=== PATIENT | female | born 1970 | race Two or more races ===

== ENCOUNTER 2020-07-29 15:34 | Outpatient (REF) | payer OTHER, SELFPAY ==
[2020-07-30 03:12] LABS: CT PCR NOT DETECTED (Not Detect.); NG PCR NOT DETECTED (Not Detect.)
[2020-07-30 08:54] LABS: BV Int Neg Control Negative (Negative); BV Int Pos Control Positive (Positive)
[2020-08-05 10:37] LABS: HPV mRNA E6/E7 rflx Not Detected (Not Detected)
== END 2020-07-29 15:35 | disposition home or self-care (01) ==
LOC: HO.LAB 15:34
PROVIDERS: Visit Provider Obstetrics & Gynecology
DX: Z01.419 Encounter for gynecological examination (general) (routine) without abnormal findings (principal)
CPT/HCPCS: 87480; 87491; 87510; 87591; 87624; 87625; 87660; 88141; 88142

== ENCOUNTER 2020-09-21 15:25 | Outpatient (REF) | payer OTHER, SELFPAY | END 2020-09-21 15:26 | disposition home or self-care (01) | LOC: HO.LAB 15:25 | PROVIDERS: PCP Family Medicine; Visit Provider Obstetrics & Gynecology | DX: N87.0 Mild cervical dysplasia (principal) | CPT/HCPCS: 57454; 88305 ==

== ENCOUNTER → 2020-10-05 12:05 | Outpatient (BNVA) | payer OTHER, SELFPAY | PROVIDERS: PCP Family Medicine; Visit Provider Obstetrics & Gynecology ==

== ENCOUNTER 2020-11-13 07:23 | Outpatient (REF) | payer OTHER, SELFPAY ==
[2020-11-13 08:57] LABS: MANUAL DIFF FLAG NO
[2020-11-13 09:05] LABS: Basophils Absolute Auto 0.1 X10*3/uL (0.0-0.2); Basophils Percent Auto 0.8 % (0-2); Eosinophils Absolute Auto 0.2 X10*3/uL (0.0-0.4); Eosinophils Percent Auto 2.1 % (0-4); Hematocrit 36.7 % (37-47); Hemoglobin 10.8 g/dl (12.0-16.0); Imm Gran Abs Auto 0.04 X10*3/uL (0.00-0.03); Imm Gran Pct Auto 0.4 % (0.0-0.4); Lymphocytes Absolute Auto 3.7 X10*3/uL (1.2-4.9); Lymphocytes Percent Auto 34.8 % (20-40); Mean Corpuscular HGB Conc 29.4 g/dl (31.0-35.0); Mean Corpuscular Hemoglobin 22.6 pg (27.0-33.0); Mean Corpuscular Volume 76.8 fL (80-98); Mean Platelet Volume 11.8 fL (9.4-12.3); Monocytes Absolute Auto 0.9 X10*3/uL (0.1-1.2); Monocytes Percent Auto 8.5 % (2-11); Neutrophils Absolute Auto 5.7 X10*3/uL (2.0-8.3); Neutrophils Percent Auto 53.4 % (45-73); Platelet Count 385 X10*3/uL (160-400); Red Blood Count 4.78 X10*6/uL (4.20-5.50); Red Cell Distribution Width 17.2 % (11.0-16.0); White Blood Count 10.6 X10*3/uL (4.8-10.8)
[2020-11-13 09:22] LABS: Anion Gap 14 (12-20); Blood Urea Nitrogen 20 mg/dL (9-16); Calcium 9.5 mg/dL (8.4-10.2); Carbon Dioxide 29 mmol/L (22-29); Chloride 102 mmol/L (96-108); Cholesterol 172 mg/dL; Estimated Glomerular Filt Rate > 60; Glucose Fasting 221 mg/dL (60-99); HDL Cholesterol 56 mg/dL; LDL Cholesterol Calculated 101 mg/dl; Potassium 4.5 mmol/L (3.3-5.1); Sodium 140 mmol/L (135-145); Triglycerides 79 mg/dL
[2020-11-13 09:29] LABS: Estimated Average Glucose 212 mg/dL
[2020-11-13 09:47] LABS: TSH reflex Free T4 2.66 uIU/mL (0.32-4.0); Vitamin D 25-OH Total 32.1 ng/mL (>30)
== END 2020-11-13 07:24 | disposition home or self-care (01) ==
LOC: HO.LAB 07:23
PROVIDERS: PCP Internal Medicine; Visit Provider Internal Medicine
DX: Z00.00 Encounter for general adult medical examination without abnormal findings (principal)
CPT/HCPCS: 36415; 80048; 80061; 82306; 83036; 84443; 85025

== ENCOUNTER 2021-03-01 16:47 | Outpatient (REF) | payer OTHER, SELFPAY ==
--- NOTE | ~2021-03-01 | XR_ITS ---
EXAMINATION: XR SHOULDER, LEFT CLINICAL INFORMATION: Right shoulder pain. COMPARISON: None TECHNIQUE: AP external rotation, Grashey, scapular Y, and axillary views of the left shoulder. FINDINGS: Glenohumeral and acromioclavicular alignment is anatomic with normal joint space. No abnormal soft tissue calcifications. No displaced fracture or dislocation. XR/XR shoulder LT min 2V IMPRESSION: No acute abnormality.
== END 2021-03-01 16:48 | disposition home or self-care (01) ==
LOC: HO.XRAY 16:47
PROVIDERS: PCP Internal Medicine; Visit Provider Internal Medicine
DX: M25.512 Pain in left shoulder (principal)
CPT/HCPCS: 73030

== ENCOUNTER 2021-06-21 16:09 | Outpatient (REF) | payer OTHER, SELFPAY ==
--- NOTE | ~2021-06-21 | MM_ITS ---
EXAMINATION: MM SCREENING DIGITAL BREAST TOMOSYNTHESIS, BILATERAL CLINICAL INFORMATION: Screening. Asymptomatic. No known family history breast cancer. The lifetime risk of breast cancer based on the Tyrer-Cuzick Model is 8%. COMPARISON: Mammography: 06/07/2019 (new baseline). TECHNIQUE: Digital breast tomosynthesis is performed in both the craniocaudal and mediolateral oblique views along with computer-aided detection (CAD). Synthesized 2D images are generated from the tomosynthesis. FINDINGS: There are scattered areas of fibroglandular density (ACR BI-RADS breast composition Category b). Parenchymal pattern borders on heterogeneously dense. The fibroglandular distribution is similar to prior exam. There is no interval mass or architectural abnormality. Again, there are scattered similar appearing punctate round calcifications in both breasts, more numerous on left. No interval spaces calcifications. The axilla and skin contours are unremarkable. MM/MM tomosynthesis screening BI IMPRESSION: No mammographic evidence of malignancy. ASSESSMENT: BI-RADS 2: Benign RECOMMENDATION: Routine annual mammography screening. This patient's information was entered into a reminder system with a target due date for their next mammogram.
== END 2021-06-21 16:10 | disposition home or self-care (01) ==
LOC: HO.MAMMO 16:09
PROVIDERS: Visit Provider Internal Medicine
DX: Z12.31 Encounter for screening mammogram for malignant neoplasm of breast (principal)
CPT/HCPCS: 77063; 77067

== ENCOUNTER 2021-08-03 14:33 | Outpatient (REF) | payer OTHER, SELFPAY ==
[2021-08-04 09:30] LABS: CT PCR NOT DETECTED (Not Detect.); NG PCR NOT DETECTED (Not Detect.)
[2021-08-04 10:03] LABS: BV Int Neg Control Negative (Negative); BV Int Pos Control Positive (Positive)
[2021-08-09 09:46] LABS: HPV 16 RNA NOT DETECTED (NOT DETECTED); HPV mRNA E6/E7 rflx Detected (Not Detected)
== END 2021-08-03 14:34 | disposition home or self-care (01) ==
LOC: HO.LAB 14:33
PROVIDERS: PCP Internal Medicine; Visit Provider Advanced Practice Midwife
DX: Z01.411 Encounter for gynecological examination (general) (routine) with abnormal findings (principal); Z11.51 Encounter for screening for human papillomavirus (HPV); Z11.3 Encounter for screening for infections with a predominantly sexual mode of transmission; N89.8 Other specified noninflammatory disorders of vagina; R32 Unspecified urinary incontinence
CPT/HCPCS: 87480; 87491; 87510; 87591; 87624; 87625; 87660; 88142

== ENCOUNTER → 2021-10-04 15:57 | Outpatient (BNVA) | payer OTHER, SELFPAY | PROVIDERS: PCP Family Medicine; Referring Provider Internal Medicine; Visit Provider Nurse Practitioner Family | DX: K59.04 Chronic idiopathic constipation (principal); K58.1 Irritable bowel syndrome with constipation; K64.9 Unspecified hemorrhoids | CPT/HCPCS: 99202 ==

== ENCOUNTER → 2021-10-08 10:51 | Outpatient (BNVA) | payer OTHER, SELFPAY | PROVIDERS: PCP Internal Medicine | DX: N39.41 Urge incontinence (principal) | CPT/HCPCS: 51798; 99202 ==

== ENCOUNTER 2021-11-01 14:11 | Outpatient (REF) | payer OTHER, SELFPAY | END 2021-11-01 14:12 | disposition home or self-care (01) | LOC: HO.LAB 14:11 | PROVIDERS: Visit Provider Obstetrics & Gynecology | DX: R87.612 Low grade squamous intraepithelial lesion on cytologic smear of cervix (LGSIL) (principal) | CPT/HCPCS: 57454; 88305 ==

== ENCOUNTER 2021-11-15 14:59 | Outpatient (REF) | payer OTHER, SELFPAY | END 2021-11-15 15:00 | disposition home or self-care (01) | LOC: HO.LAB 14:59 | PROVIDERS: PCP Internal Medicine; Visit Provider Obstetrics & Gynecology | DX: R87.612 Low grade squamous intraepithelial lesion on cytologic smear of cervix (LGSIL) (principal) | CPT/HCPCS: 57454; 88305; 99212 ==

== ENCOUNTER → 2021-11-29 16:17 | Outpatient (BNVA) | payer OTHER, SELFPAY | PROVIDERS: Visit Provider Obstetrics & Gynecology | DX: Z13.89 Encounter for screening for other disorder (principal) ==

== ENCOUNTER 2021-12-01 15:35 | Outpatient (REF) | payer OTHER, SELFPAY ==
[2021-12-01 17:11] LABS: Estimated Average Glucose 183 mg/dL
[2021-12-01 17:21] LABS: Alanine Aminotransferase 12 U/L (0-31); Albumin Level 4.2 g/dL (3.5-5.0); Alkaline Phosphatase 140 U/L (39-117); Aspartate Amino Transferase 11 U/L (5-31); Bilirubin Direct < 0.2 mg/dL (0.0-0.5); Bilirubin Total 0.2 mg/dL (0.0-1.0); Lipase 34 U/L (8-78); Total Protein 7.5 g/dL (6.5-8.0)
[2021-12-01 17:42] LABS: TSH reflex Free T4 4.23 uIU/mL (0.32-4.0)
[2021-12-01 18:18] LABS: Free T4 (Free Thyroxine) 0.97 ng/dL (0.71-1.85)
[2021-12-04 08:42] LABS: Transglutaminase Ab IgG <1.0 U/mL; Transglutaminase IgA <1.0 U/mL
== END 2021-12-01 15:36 | disposition home or self-care (01) ==
LOC: HO.LAB 15:35
PROVIDERS: PCP Internal Medicine; Referring Provider Internal Medicine; Visit Provider Nurse Practitioner Family
DX: Z12.11 Encounter for screening for malignant neoplasm of colon (principal); R10.9 Unspecified abdominal pain; K21.9 Gastro-esophageal reflux disease without esophagitis; K58.1 Irritable bowel syndrome with constipation
CPT/HCPCS: 36415; 80076; 83036; 83690; 84439; 84443; 86364; 99212

== ENCOUNTER → 2022-01-07 14:26 | Outpatient (BNVA) | payer OTHER, SELFPAY | PROVIDERS: PCP Internal Medicine | DX: Z13.89 Encounter for screening for other disorder (principal) ==

== ENCOUNTER → 2022-01-28 14:47 | Outpatient (BNVA) | payer OTHER, SELFPAY | PROVIDERS: PCP Internal Medicine; Visit Provider Nurse Practitioner Family | DX: K21.9 Gastro-esophageal reflux disease without esophagitis (principal); K59.01 Slow transit constipation; R79.89 Other specified abnormal findings of blood chemistry | CPT/HCPCS: 99212 ==

== ENCOUNTER 2022-02-09 14:09 | Outpatient (REF) | payer OTHER, SELFPAY ==
--- NOTE | ~2022-02-09 | XR_ITS ---
EXAMINATION CT ABDOMEN AND PELVIS WITHOUT CONTRAST (STONE PROTOCOL) CLINICAL INFORMATION: Flank pain COMPARISON: None. TECHNIQUE: Multidetector volumetric CT imaging of the abdomen and pelvis was obtained without the use of intravenous contrast. Coronal and sagittal reformats were reviewed. This CT examination was performed using dose optimization techniques as appropriate, variously including the following: *Automated exposure control *Adjustment of mA and/or kV according to patient size (this includes techniques or standardized protocols for targeted exams where dose is matched to indication/reason for exam; i.e. extremities or head) *Use of iterative reconstruction technique DLP: 831 mGy-cm. FINDINGS: HEPATOBILIARY: Liver normal in size, contour and morphology. No suspicious lesions. No intra or extrahepatic biliary dilation. Gallbladder unremarkable. PANCREAS: Unremarkable. SPLEEN: Unremarkable. ADRENAL GLANDS: Unremarkable. KIDNEYS, URETERS AND BLADDER: Kidneys normal in size, axis and morphology. Subcentimeter angiomyolipoma present lateral interpolar cortex of left kidney. No hydronephrosis. Punctate nonobstructive calculus present in the pole of the right kidney. No ureteral calculi. Ureters normal in course and caliber. Bladder grossly unremarkable.. GASTROINTESTINAL TRACT: Scattered left colonic diverticula. No evidence of diverticulitis. Normal appendix. Small sliding-type hiatal hernia. Stomach otherwise unremarkable. Normal small bowel. PELVIC VISCERA: Uterus and ovaries unremarkable. LYMPH NODES: No lymphadenopathy. PERITONEUM/BODY WALL: Unremarkable. VASCULAR STRUCTURES: Aorta is atherosclerotic but normal caliber. OSSEOUS STRUCTURES: No acute or suspicious osseous abnormalities. XR/XR lumbar spine 2-3V IMPRESSION: * No ureteral calculi or hydronephrosis. * Punctate nonobstructive calculus in the upper pole right kidney. * Scattered left colonic diverticula without evidence of diverticulitis.
== END 2022-02-09 14:10 | disposition home or self-care (01) ==
LOC: HO.XRAY 14:09
PROVIDERS: Absent Provider Internal Medicine; PCP Internal Medicine; Visit Provider Emergency Medicine
DX: M54.42 Lumbago with sciatica, left side (principal)
CPT/HCPCS: 72100

== ENCOUNTER 2022-02-10 00:27 | Emergency (ER) | payer OTHER, SELFPAY ==
--- NOTE | ~2022-02-10 | CT_ITS ---
EXAMINATION CT ABDOMEN AND PELVIS WITHOUT CONTRAST (STONE PROTOCOL) CLINICAL INFORMATION: Flank pain COMPARISON: None. TECHNIQUE: Multidetector volumetric CT imaging of the abdomen and pelvis was obtained without the use of intravenous contrast. Coronal and sagittal reformats were reviewed. This CT examination was performed using dose optimization techniques as appropriate, variously including the following: *Automated exposure control *Adjustment of mA and/or kV according to patient size (this includes techniques or standardized protocols for targeted exams where dose is matched to indication/reason for exam; i.e. extremities or head) *Use of iterative reconstruction technique DLP: 831 mGy-cm. FINDINGS: HEPATOBILIARY: Liver normal in size, contour and morphology. No suspicious lesions. No intra or extrahepatic biliary dilation. Gallbladder unremarkable. PANCREAS: Unremarkable. SPLEEN: Unremarkable. ADRENAL GLANDS: Unremarkable. KIDNEYS, URETERS AND BLADDER: Kidneys normal in size, axis and morphology. Subcentimeter angiomyolipoma present lateral interpolar cortex of left kidney. No hydronephrosis. Punctate nonobstructive calculus present in the pole of the right kidney. No ureteral calculi. Ureters normal in course and caliber. Bladder grossly unremarkable.. GASTROINTESTINAL TRACT: Scattered left colonic diverticula. No evidence of diverticulitis. Normal appendix. Small sliding-type hiatal hernia. Stomach otherwise unremarkable. Normal small bowel. PELVIC VISCERA: Uterus and ovaries unremarkable. LYMPH NODES: No lymphadenopathy. PERITONEUM/BODY WALL: Unremarkable. VASCULAR STRUCTURES: Aorta is atherosclerotic but normal caliber. OSSEOUS STRUCTURES: No acute or suspicious osseous abnormalities. CT/CT abdomen pelvis wo con IMPRESSION: * No ureteral calculi or hydronephrosis. * Punctate nonobstructive calculus in the upper pole right kidney. * Scattered left colonic diverticula without evidence of diverticulitis.
[2022-02-10 01:12] VITALS: BP 147/83; PULSE 81; RESP 16; TEMP 36.4; O2SAT 94; BMI 35.3
[2022-02-10 02:09] LABS: Appearance Urine HAZY; Color Urine YELLOW; Glucose Urine UA >=1000 MG/DL (NEG); Leukocyte Esterase Urine NEG (NEG); Nitrite Urine NEG (NEG); PH 5.5 (5.0-8.0); Urine Blood NEG (NEG); Urine Ketones NEG (NEG); Urine Protein NEG (NEG-TRACE)
[2022-02-10 02:27] LABS: RBC Urine 0 /HPF (0); WBC Urine 0 /HPF (0-4)
[2022-02-10 02:28] LABS: Bacteria Urine TRACE /LPF; Mucus Urine 1+ /LPF; Squamous Epithelial Cell Urine 2+ /LPF
[2022-02-10] MEDS: Acetaminophen 325 MG TABLET 975 MG PO (02:30)
[2022-02-10] MEDS: Ketorolac Tromethamine 15 MG/ML VIAL IM (02:31)
--- NOTE | 2022-02-10 03:14 | ED.GENADULT ---
HPI - General Adult General Chief complaint: Back Pain/Injury Stated complaint: Spinal Pain, Medication not Working, Nausea Time Seen by Provider: 02/10/22 01:05 Source: patient and educational sign language interpreter Mode of arrival: ambulatory History of Present Illness HPI narrative: 51-year-old female with history hypertension and diabetes who comes in with left flank pain since Monday that is been worsening, sharp in nature in radiating down to her groin associated with chills as well as nausea and vomiting yesterday. Otherwise she denies any urinary symptoms or abdominal pain or shortness of breath. Related Data Home Medications Medication Instructions Recorded Confirmed albuterol sulfate 90 mcg/actuation 1 - 2 puff inhalation Q4-6H PRN 07/29/20 aerosol inhaler dyspnea blood sugar diagnostic #10 ea 07/29/20 chlorthalidone 25 mg tablet 25 mg PO DAILY 07/29/20 cholecalciferol (vitamin D3) 50 50 mcg PO DAILY 07/29/20 mcg (2,000 unit) tablet codeine 10 mg-guaifenesin 100 mg/5 5 - 10 ml PO Q4-6H PRN cough 07/29/20 mL oral liquid ferrous sulfate 325 mg (65 mg 325 mg PO DAILY 07/29/20 iron) tablet glipizide 5 mg tablet, extended 5 mg PO DAILY 07/29/20 release 24 hr metformin 1,000 mg tablet 1,000 mg PO BID 07/29/20 empagliflozin 25 mg tablet 25 mg PO QAM 08/03/21 (Jardiance) lancets 33 gauge (TRUEplus Lancets) #100 ea 08/03/21 lisinopril 40 mg tablet 40 mg PO DAILY 10/08/21 omeprazole 20 mg capsule,delayed 20 mg PO DAILY 10/08/21 release celecoxib 100 mg capsule 100 mg PO BID 01/07/22 diclofenac sodium 1 % topical gel 2 g topical QID 01/07/22 Previous Rx's Medication Instructions Recorded hydrocortisone 2.5 % topical cream 1 appl OK BID-QID PRN hemorrhoids 10/04/21 with perineal applicator #30 grams (Proctosol HC) sennosides 8.6 mg tablet (Natural 8.6 mg PO BEDTIME constipation #30 10/04/21 Senna Laxative) tabs famotidine 40 mg tablet 40 mg PO BEDTIME #30 tabs 12/01/21 cyclobenzaprine 5 mg tablet 5 mg PO BEDTIME PRN muscle spasm 02/10/22 #3 tabs ketorolac 10 mg tablet 10 mg PO Q6H PRN pain 5 days #20 02/10/22 tabs Allergies Allergy/AdvReac Type Severity Reaction Status Date / Time No Known Allergies Allergy Verified 01/28/22 15:13 [No Known Allergies*] Review of Systems Review of Systems: Pertinent positives and negatives as stated in HPI 10 point review of systems is otherwise negative. PMFSH Past Medical History Source: nursing notes reviewed Medical History Diabetes GERD (gastroesophageal reflux disease) Hemorrhoids HTN (hypertension) Urge incontinence Surgical History History of Hx of colonoscopy Family History Family History Family/Other Breast cancer Maternal Aunt Breast cancer Social History Social History Alcohol intake: never Advance Directives: No Advance Directives Information Provided: Yes Sexual orientation: Straight/Heterosexual Gender identity: Female Physical Exam ED Vital Signs: Vital Signs - 24 hr 02/10/22 01:12 Temperature 97.6 F Pulse Rate 81 Respiratory Rate 16 Blood Pressure 147/83 H Pulse Oximetry 94 Oxygen Delivery Method Room Air BMI result Body Mass Index 35.3 VITAL SIGNS: Reviewed. GENERAL: Well developed, well nourished, in no acute distress. HEAD: Normocephalic/atraumatic EYES: PERRLA, EOMI EARS: Ext canals without abnormality OROPHARYNX: no oral lesions noted, posterior pharynx clear LUNGS: Normal breath sounds. No adventitious sounds or accessory muscle use. SpO2<94> CARDIOVASCULAR: Regular rate and rhythm without noted murmurs ABDOMEN: Soft, non-tender, non-distended with bowel sounds, no CVA tenderness MUSCULOSKELETAL: No tenderness, deformities, or effusions noted on gross inspection. EXTREMITIES: No cyanosis, clubbing or edema. SKIN: Inspection of the skin reveals no rashes NEUROLOGIC: Alert and oriented x 4. Strength and sensation to light touch were grossly intact x 4. Course Course Course Narrative: 51-year-old female with history and clinical presentation most suspicious for muscle spasm/strain based on clinical exam. On review of all investigations there are no acute findings and patient was provided with combination analgesics and reports improvement in her pain. She was informed of all results and will be discharged home in stable condition with presumptive treatment for muscle strain/spasm. Medical Decision Making Lab Data Labs: Lab Results 02/10/22 Range/Units 01:51 Urine Color YELLOW Urine Appearance HAZY Urine pH 5.5 (5.0-8.0) Ur Specific Bryson 1.020 (1.005-1.025) Urine Protein NEG (NEG-TRACE) MG/DL Urine Glucose (UA) >=1000 H (NEG) MG/DL Urine Ketones NEG (NEG) MG/DL Urine Blood NEG (NEG) Urine Nitrite NEG (NEG) Ur Leukocyte Esterase NEG (NEG) Urine RBC 0 (0) /HPF Urine WBC 0 (0-4) /HPF Ur Squamous Epith Cells 2+ /LPF Urine Bacteria TRACE /LPF Urine Mucus 1+ /LPF Discharge Plan Discharge Clinical Impression: Muscle strain, Muscle spasm Patient Disposition: Home, Self-Care Instructions: Muscle Spasm (ED) Additional Instructions: 1. Reanudar todos los medicamentos caseros seg?n lo prescrito. 2. Tylenol 1000 mg, por v?a oral, cada 6 horas seg?n sea necesario para controlar el dolor. No exceda los 4000 mg dentro de las 24 horas. 3. Parche de lidoca?na, aplique en el ?carl de m?xima sensibilidad kodak se indica en el empaque exterior. 4. Realice un seguimiento con davidson proveedor de atenci?n primaria en los pr?ximos 1 a 2 d?as para zaida reevaluaci?n adicional del manejo ambulatorio. Regrese a la bairon de emergencias si los s?ntomas empeoran. Prescriptions: New ketorolac 10 mg tablet 10 mg PO Q6H PRN (Reason: pain) 5 Days Qty: 20 0RF Rx Instructions: Patient received Toradol in the emergency room. Please instruct patient to stop all other NSAID use. cyclobenzaprine 5 mg tablet 5 mg PO BEDTIME PRN (Reason: muscle spasm) Qty: 3 0RF No Action chlorthalidone 25 mg tablet 25 mg PO DAILY glipizide 5 mg tablet extended release 24hr 5 mg PO DAILY metformin 1,000 mg tablet 1,000 mg PO BID (DME) FreeStyle Lite Strips Strip See Rx Instructions Not Applicable BID Qty: 10 Rx Instructions: As directed albuterol sulfate 90 mcg/actuation HFA aerosol inhaler 1 - 2 puff inhalation Q4-6H PRN (Reason: dyspnea) codeine-guaifenesin 10-100 mg/5 mL liquid 5 - 10 ml PO Q4-6H PRN (Reason: cough) cholecalciferol (vitamin D3) 50 mcg (2,000 unit) tablet 50 mcg PO DAILY ferrous sulfate 325 mg (65 mg iron) tablet 325 mg PO DAILY Jardiance 25 mg tablet 25 mg PO QAM (DME) lancets [TRUEplus Lancets] 33 gauge misc See Rx Instructions Not Applicable BID Qty: 100 Rx Instructions: As directed lisinopril 40 mg tablet 40 mg PO DAILY omeprazole 20 mg capsule,delayed release(DR/EC) 20 mg PO DAILY famotidine 40 mg tablet 40 mg PO BEDTIME Qty: 30 3RF sennosides [Natural Senna Laxative] 8.6 mg tablet 8.6 mg PO BEDTIME Qty: 30 3RF hydrocortisone [Proctosol HC] 2.5 % cream with perineal applicator 1 appl OK BID-QID PRN (Reason: hemorrhoids) Qty: 30 0RF diclofenac sodium 1 % gel 2 g topical QID celecoxib 100 mg capsule 100 mg PO BID Print Language: Belgian
--- NOTE | 2022-02-10 03:40 | PC.NURSE ---
Assumed care of pt Pt c/o worsening flank pain since Monday with n/v, worse with movement Denies any fevers but c/o chills at home Pt medicated per NOV NAD Will continue to monitor
[2022-02-10] MEDS: Lidocaine 4 % Patch ADH..PATCH 1 PATCH TRANSDERMA (05:38)
[2022-02-10] MEDS: Cyclobenzaprine HCl 5 MG TABLET PO (05:38)
[2022-02-10 05:47] VITALS: BP 138/68; PULSE 82; O2SAT 100
== END 2022-02-10 05:48 | disposition home or self-care (01) ==
PROVIDERS: Emergency Provider Student in an Organized Health Care Education/Training Program
DX: S39.011A Strain of muscle, fascia and tendon of abdomen, initial encounter (principal); X58.XXXA Exposure to other specified factors, initial encounter; M62.830 Muscle spasm of back; R10.9 Unspecified abdominal pain; I10 Essential (primary) hypertension; E11.9 Type 2 diabetes mellitus without complications; Y93.9 Activity, unspecified; Y92.9 Unspecified place or not applicable; Y99.9 Unspecified external cause status
CPT/HCPCS: 74176; 81001; 96372; 99284; J1885

== ENCOUNTER 2022-02-15 15:00 | Outpatient (RCR) | payer OTHER, SELFPAY | END 2022-02-22 16:07 | disposition home or self-care (01) | LOC: HO.OT 15:00 | PROVIDERS: PCP Internal Medicine; Visit Provider Internal Medicine | DX: G56.21 Lesion of ulnar nerve, right upper limb (principal) | CPT/HCPCS: 97110; 97165 ==

== ENCOUNTER → 2022-06-01 14:06 | Outpatient (BNVA) | payer OTHER, SELFPAY | PROVIDERS: PCP Internal Medicine; Visit Provider Internal Medicine Endocrinology, Diabetes & Metabolism | DX: E03.9 Hypothyroidism, unspecified (principal) | CPT/HCPCS: 99202 ==

== ENCOUNTER 2022-06-07 15:41 | Outpatient (REF) | payer OTHER, SELFPAY ==
[2022-06-07 17:12] LABS: Free T4 (Free Thyroxine) 1.02 ng/dL (0.71-1.85); Thyroid Stimulating Hormone 3.84 uIU/mL (0.32-4.0)
[2022-06-09 13:32] LABS: Thyroid Peroxidase Antibodies 1 IU/mL (<9)
== END 2022-06-07 15:42 | disposition home or self-care (01) ==
LOC: HO.LAB 15:41
PROVIDERS: PCP Internal Medicine; Visit Provider Internal Medicine Endocrinology, Diabetes & Metabolism
DX: E03.9 Hypothyroidism, unspecified (principal)
CPT/HCPCS: 36415; 84439; 84443; 86376

== ENCOUNTER → 2022-08-01 14:30 | Outpatient (BNVA) | payer OTHER, SELFPAY | PROVIDERS: PCP Internal Medicine; Referring Provider Internal Medicine; Visit Provider Nurse Practitioner Family | DX: K59.04 Chronic idiopathic constipation (principal); K58.1 Irritable bowel syndrome with constipation; K21.9 Gastro-esophageal reflux disease without esophagitis | CPT/HCPCS: 99212 ==

== ENCOUNTER → 2022-08-05 14:48 | Outpatient (BNVA) | payer OTHER, SELFPAY | PROVIDERS: PCP Internal Medicine; Visit Provider Urology | DX: N32.81 Overactive bladder (principal); N20.0 Calculus of kidney | CPT/HCPCS: 51798; 99212 ==

== ENCOUNTER 2023-02-01 14:36 | Outpatient (REF) | payer MEDICAID, SELFPAY ==
[2023-02-08 07:58] LABS: HPV 16 RNA NOT DETECTED (NOT DETECTED); HPV mRNA E6/E7 rflx Detected (Not Detected)
== END 2023-02-01 14:37 | disposition home or self-care (01) ==
LOC: HO.LNP 14:36
PROVIDERS: PCP Internal Medicine; Visit Provider Obstetrics & Gynecology
DX: Z01.419 Encounter for gynecological examination (general) (routine) without abnormal findings (principal)
CPT/HCPCS: 87624; 87625; 88142

== ENCOUNTER → 2023-02-06 13:31 | Outpatient (BNVA) | payer MEDICAID, SELFPAY | PROVIDERS: PCP Internal Medicine; Visit Provider Urology | DX: N32.81 Overactive bladder (principal); N20.0 Calculus of kidney | CPT/HCPCS: 51798; 99212 ==

== ENCOUNTER 2023-02-25 10:18 | Outpatient (REF) | payer MEDICAID, SELFPAY | END 2023-02-25 10:19 | disposition home or self-care (01) | LOC: HO.XRAY 10:18 | PROVIDERS: PCP Internal Medicine; Visit Provider Urology | DX: N20.0 Calculus of kidney (principal) | CPT/HCPCS: 74018 ==

== ENCOUNTER 2023-03-02 12:24 | Outpatient (REF) | payer MEDICAID, SELFPAY | END 2023-03-02 12:25 | disposition home or self-care (01) | LOC: HO.LNP 12:24 | PROVIDERS: PCP Internal Medicine; Visit Provider Obstetrics & Gynecology | DX: R87.610 Atypical squamous cells of undetermined significance on cytologic smear of cervix (ASC-US) (principal); R87.810 Cervical high risk human papillomavirus (HPV) DNA test positive | CPT/HCPCS: 57456; 88305 ==

== ENCOUNTER 2023-03-09 14:22 | Outpatient (REF) | payer MEDICAID, SELFPAY ==
--- NOTE | ~2023-03-09 | MM_ITS ---
EXAMINATION: MM SCREENING DIGITAL BREAST TOMOSYNTHESIS, BILATERAL CLINICAL INFORMATION: Screening. Asymptomatic. The lifetime risk of breast cancer based on the Tyrer-Cuzick Model is 8.6%. COMPARISON: Mammography: This study is compared with prior exams dating back to 2019. TECHNIQUE: Digital breast tomosynthesis is performed in both the craniocaudal and mediolateral oblique views along with computer-aided detection (CAD). Synthesized 2D images are generated from the tomosynthesis. FINDINGS: There are scattered areas of fibroglandular density (ACR BI-RADS breast composition Category b). There are no significant masses, abnormal calcifications, or other abnormalities. Scattered benign calcifications are present in each breast. MM/MM tomosynthesis screening BI IMPRESSION: No mammographic evidence of malignancy. ASSESSMENT: BI-RADS BI-RADS 2 - Benign Findings RECOMMENDATION: Routine annual mammography screening. 1 year F/U This examination should not preclude the clinical evaluation of a suspicious palpable abnormality. This patient's information was entered into a reminder system with a target due date for their next mammogram.
== END 2023-03-09 14:23 | disposition home or self-care (01) ==
LOC: HO.MAMMO 14:22
PROVIDERS: PCP Internal Medicine; Visit Provider Obstetrics & Gynecology
DX: Z12.31 Encounter for screening mammogram for malignant neoplasm of breast (principal)
CPT/HCPCS: 77063; 77067

== ENCOUNTER → 2023-03-09 14:30 | Outpatient (BNV) | payer MEDICAID, SELFPAY | PROVIDERS: PCP Internal Medicine; Visit Provider Radiology Diagnostic Radiology | DX: Z12.31 Encounter for screening mammogram for malignant neoplasm of breast (principal) | CPT/HCPCS: 77063; 77067 ==

== ENCOUNTER 2023-03-15 14:04 | Outpatient (AMB) | payer MEDICAID, SELFPAY ==
--- NOTE | 2023-03-15 14:07 | A.OFFVIS_ITS ---
Intake Vital Signs 03/15/23 14:09 Height 5 ft 4 in Weight 213 lb 13.574 oz BMI 36.7 BP 124/76 Intake Visit Reasons: Colpo results/ Ok per yarelis Assistant Teacher Required: Yes Assistant Teacher Language: Sales Representative Health Insurance Name: [employer]era AGUIRRE Information Interpreted: non-clinical & clinical Accompanied by: Self / Same As Patient Allergies No Known Allergies [No Known Allergies*] Allergy (Verified 03/15/23 14:10) Post menopausal: Yes HPI HPI Comments History of Present Illness Details Presenting post colpo for follow-up. The patient is doing well with no complaints. The pathology showed the following: Endocervix, curettage:? Squamous mucosa and rare endocervical glandular epithelial cells; negative for dysplasia.? PFSH Medical History Diabetes GERD (gastroesophageal reflux disease) Hemorrhoids HTN (hypertension) Hypothyroid Urge incontinence Surgical History History of Hx of colonoscopy Family History Family/Other Breast cancer Maternal Aunt Breast cancer Maternal Aunt Thyroid disease Father HTN (hypertension) Mother Hernia Age related osteoporosis Social History Household Members Other:: daughter Housing: Apartment Alcohol intake: former Patient Tobacco Use Status: Former Tobacco user Sexual orientation: Straight/Heterosexual Gender identity: Female Review of Systems Const All systems reviewed & are unremarkable except as noted in HPI and below Reports as per HPI and Reports no additional complaints GI Reports no additional complaints Reports no additional complaints Physical Exam Vital Signs: Last Vital Signs BP 124/76 03/15/23 14:09 BMI result Body Mass Index 36.7 Assessment & Plan Assessment & Plan (1) ASCUS with positive high risk HPV cervical: Code(s): R87.610 - Atypical squamous cells of undetermined significance on cytologic smear of cervix (ASC-US); R87.810 - Cervical high risk human papillomavirus (HPV) DNA test positive Plan: Discussed with the patient the pathology results of the colposcopy biopsies & endocervical curettage ( negative). Discussed with the patient the sensitivity specificity, positive and negative predictive value in detecting cervical cancer in addition discussed the regression, persistence and progression rates. Recommended co-testing in 12 months, if cytology and or HPV are abnormal will proceed was colposcopy biopsy and endocervical curettage, if lesions gets worse or stays persistent for 2 years will proceed with loop electric excision procedure. Instructions given to the patient to schedule a co test appointment in 1 year. All questions answered the patient verbalized understanding. Coding Level of Care Code Est Pt Level 3 (23868) Diagnoses ASCUS with positive high risk HPV cervical R87.610; R87.810
[2023-03-15 14:09] VITALS: BP 124/76; BMI 36.7
== END 2023-03-15 14:17 | disposition home or self-care (01) ==
LOC: HO.HWS 14:05
PROVIDERS: PCP Internal Medicine; Visit Provider Obstetrics & Gynecology
DX: R87.610 Atypical squamous cells of undetermined significance on cytologic smear of cervix (ASC-US) (principal); R87.810 Cervical high risk human papillomavirus (HPV) DNA test positive
CPT/HCPCS: 99213

== ENCOUNTER → 2023-03-15 14:04 | Outpatient (BNVA) | payer MEDICAID, SELFPAY | PROVIDERS: PCP Internal Medicine; Visit Provider Obstetrics & Gynecology | DX: R87.610 Atypical squamous cells of undetermined significance on cytologic smear of cervix (ASC-US) (principal); R87.810 Cervical high risk human papillomavirus (HPV) DNA test positive | CPT/HCPCS: 99212 ==

== ENCOUNTER 2023-04-14 10:54 | Outpatient (AMB) | payer MEDICAID, SELFPAY ==
--- NOTE | 2023-04-14 05:09 | A.OFFVIS_ITS ---
Intake Intake Visit Reasons: 2m/KUB Intake Note: Patient presents today for a follow-up on KUB Results: Meds- None Allergies to Antibiotic- No Known Allergies Blood Thinner- None Admitting Manager Required: Yes Admitting Manager Language: Tongan Information Interpreted: non-clinical & clinical Accompanied by: Self / Same As Patient Allergies No Known Allergies [No Known Allergies*] Allergy (Verified 03/15/23 14:10) HPI HPI Comments History of Present Illness Details 04/14/2023? Adeola is a 52-year-old female who presents today via televisit for follow up, overactive bladder and kidney stones. She was last seen by me on 02/06/2023. She is here today via televisit to discuss KUB results.? The patient is a Tongan speaking female. Certified language interpreter was present during the televisit. She mentions having intermittent weak urinary stream. She also reports sensation of feeling incomplete bladder emptying. She denies any other urinary tract symptoms including hematuria. Results reviewed ? X ray KUB?02/25/2022?no kidney stones noted. Results reviewed ? CT scan of the abdomen/pelvis without contrast?kidneys were normal, no hydronephrosis; punctate right kidney stone. Review of chart: 02/06/2023? Adeola is a 52-year-old female who presents to the office for follow-up,? overactive bladder, kidney stones. The patient is a Tongan speaking female. Certified language interpreter was present during the visit. The patient is being evaluated in the past for OAB and She was last seen on 08/05/23. At which? time she stated she had been evaluated in the ER and had a CAT scan done and she was told that she had a kidney stone. I did review the imaging from February 2022 which noted a punctuate right kidney stone that was nonobstructive. She was doing well off her bladder medication at that time and she stated that her bladder symptoms improved with better control of her diabetes. The patient reports that she is having thyroid issues, in review her chart an endocrine referral was made. Evaluation today: Blood: negative, leukocytes: negative. Bladder scan PVR: 0 mL. Plan: Right kidney stone will monitor. KUB X-ray was ordered. OAB.? Bladder symptoms stable Tele-health follow-up after 2 months.? ? 04/14/23--Plan: Schedule an office visit follow up to FU bladder emptying FU in 10 weeks to check bladder scan and urinalysis. Monitory Kidneys. Right kidney stone PFSH Medical History Diabetes GERD (gastroesophageal reflux disease) Hemorrhoids HTN (hypertension) Hypothyroid Urge incontinence Surgical History History of Hx of colonoscopy Family History Family/Other Breast cancer Maternal Aunt Breast cancer Maternal Aunt Thyroid disease Father HTN (hypertension) Mother Hernia Age related osteoporosis Social History Household Members Other:: daughter Housing: Apartment Alcohol intake: former Patient Tobacco Use Status: Former Tobacco user Sexual orientation: Straight/Heterosexual Gender identity: Female Review of Systems Const All systems reviewed & are unremarkable except as noted in HPI and below Reports no additional complaints Eyes Reports no additional complaints ENT Reports no additional complaints Card Denies dyspnea Resp Denies cough and Denies dyspnea GI Reports no additional complaints Reports no additional complaints Musc Reports no additional complaints Skin/Breast Denies rash and Denies unusual bruising Neuro Reports no additional complaints Psych Reports no additional complaints Endo Reports no additional complaints Dave/Lymph Reports no additional complaints Aller/Immun Reports no additional complaints Results Reviewed Results Reviewed: Date of Service: 02/10/[address] ABDOMEN AND PELVIS WITHOUT CONTRAST (STONE PROTOCOL) CLINICAL INFORMATION: Flank pain? COMPARISON: None. ? FINDINGS: HEPATOBILIARY: Liver normal in size, contour and morphology. No suspicious lesions. No intra or extrahepatic biliary dilation. Gallbladder unremarkable. PANCREAS: Unremarkable. SPLEEN: Unremarkable. ADRENAL GLANDS: Unremarkable. KIDNEYS, URETERS AND BLADDER: Kidneys normal in size, axis and morphology. Subcentimeter angiomyolipoma present lateral interpolar cortex of left kidney. No hydronephrosis. Punctate nonobstructive calculus present in the pole of the right kidney. No ureteral calculi. Ureters normal in course and caliber. Bladder grossly unremarkable.. GASTROINTESTINAL TRACT: Scattered left colonic diverticula. No evidence of diverticulitis. Normal appendix. Small sliding-type hiatal hernia. Stomach otherwise unremarkable. Normal small bowel.? PELVIC VISCERA: Uterus and ovaries unremarkable. LYMPH NODES: No lymphadenopathy. PERITONEUM/BODY WALL: Unremarkable. VASCULAR STRUCTURES: Aorta is atherosclerotic but normal caliber. OSSEOUS STRUCTURES: No acute or suspicious osseous abnormalities. ? IMPRESSION: *? No ureteral calculi or hydronephrosis. *? Punctate nonobstructive calculus in the upper pole right kidney. *? Scattered left colonic diverticula without evidence of diverticulitis.? Date of Service: 02/25/23 EXAMINATION: XR ABDOMEN KUB CLINICAL INDICATION: Kidney stone? COMPARISON: Previous CT of the abdomen and pelvis February 23? FINDINGS: No stone is seen. Bowel gas pattern is normal. Degenerative changes at the hip joints. IMPRESSION: No stone seen. Assessment & Plan Assessment & Plan (1) History of kidney stones: Code(s): Z87.442 - Personal history of urinary calculi (2) OAB (overactive bladder): Code(s): N32.81 - Overactive bladder Plan chedule an office visit follow up to FU bladder emptying FU in 10 weeks to check bladder scan and urinalysis. Monitory Kidneys. Right kidney stone Patient Instructions: The patient had an opportunity to ask questions regarding treatment plan. All questions were answered. Imaging, Laboratory studies and physical exam results were discussed and reviewed in detail. No major barriers to understanding were identified. The patient expressed understanding and agreement with the above treatment plan.? ? ? The patient is aware they should contact our office by phone for worsening of their current condition or the appearance of new symptoms. Compliance is encouraged with any medications and followup testing that is ordered.? ? ? It is a privilege to be allowed the opportunity to participate in the urologic care of your patient. If you have any questions or concerns regarding treatment for the above conditions please do not hesitate to contact me. The office telephone contact is [phone].? ? ? This note is constructed in part using voice recognition software. While every effort has been made to ensure accuracy senior medical transcriptionist errors may have been incl uded.? ? ? Yours sincerely,? ? ? Candie Franks MD? Telehealth Telehealth Location of provider rendering services: practice address Location of patient: address on file Patient Identification confirmed using: Name, : Yes Telehealth method: voice only Patient verbally consented to treatment: Yes Patient verbally consented to billing insurance company: Yes Patient informed of any privacy concerns related to visit: Yes Minutes spent on Phone/Video with Pt.: 15 Coding Level of Care Code Tele Est Pt Level 3 (83711) Diagnoses History of kidney stones Z87.442 OAB (overactive bladder) N32.81
== END 2023-04-14 11:03 | disposition home or self-care (01) ==
LOC: HO.HUSH 10:54
PROVIDERS: PCP Internal Medicine; Visit Provider Urology
DX: Z87.442 Personal history of urinary calculi (principal); N32.81 Overactive bladder
CPT/HCPCS: 99213

== ENCOUNTER → 2023-04-14 10:54 | Outpatient (BNVA) | payer MEDICAID, SELFPAY | PROVIDERS: PCP Internal Medicine; Visit Provider Urology ==

== ENCOUNTER 2023-05-25 14:41 | Outpatient (REF) | payer MEDICAID, SELFPAY ==
[2023-05-25 16:12] LABS: MANUAL DIFF FLAG NO
[2023-05-25 16:19] LABS: Basophils Absolute Auto 0.1 X10*3/uL (0.0-0.2); Eosinophils Absolute Auto 0.3 X10*3/uL (0.0-0.4); Eosinophils Percent Auto 2.6 % (0-4); Hematocrit 38.1 % (37.0-47.0); Hemoglobin 11.6 g/dl (12.0-16.0); Imm Gran Abs Auto 0.04 X10*3/uL (0.00-0.03); Imm Gran Pct Auto 0.3 % (0.0-0.4); Lymphocytes Absolute Auto 3.9 X10*3/uL (1.2-4.9); Lymphocytes Percent Auto 34.3 % (20-40); Mean Corpuscular HGB Conc 30.4 g/dl (31.0-35.0); Mean Corpuscular Hemoglobin 23.7 pg (27.0-33.0); Mean Corpuscular Volume 77.8 fL (80.0-98.0); Mean Platelet Volume 12.4 fL (9.4-12.3); Monocytes Absolute Auto 0.8 X10*3/uL (0.1-1.2); Monocytes Percent Auto 7.2 % (2-11); Neutrophils Absolute Auto 6.3 x10*3/uL (2.0-8.3); Neutrophils Percent Auto 54.6 % (45-73); Platelet Count 379 X10*3/uL (160-400); White Blood Count 11.5 X10*3/uL (4.8-10.8)
[2023-05-25 16:58] LABS: Alanine Aminotransferase 10 U/L (0-31); Albumin Level 4.2 g/dL (3.5-5.0); Alkaline Phosphatase 140 U/L (39-117); Anion Gap 14 (12-20); Aspartate Amino Transferase 12 U/L (5-31); Bilirubin Direct < 0.2 mg/dL (0.0-0.5); Bilirubin Total 0.2 mg/dL (0.0-1.0); Blood Urea Nitrogen 14 mg/dL (9-16); Calcium 9.7 mg/dL (8.4-10.2); Carbon Dioxide 27 mmol/L (22-29); Chloride 103 mmol/L (96-108); Cholesterol 162 mg/dL (<200); Estimated Glomerular Filt Rate 55; Glucose Random 270 mg/dL (60-115); HDL Cholesterol 51 mg/dL (>40); LDL Cholesterol Calculated 84 mg/dL (<100); Potassium 3.5 mmol/L (3.3-5.1); Sodium 140 mmol/L (135-145); Total Protein 7.7 g/dL (6.5-8.0); Triglycerides 135 mg/dL (<150)
[2023-05-25 17:48] LABS: Creatinine Urine 47.65 mg/dL; Microalbumin Urine < 5.0 mg/L
[2023-05-26 16:41] LABS: Iron 54 mcg/dL (30-160); Percent Iron Saturation 18 % (15-50); Total Iron Binding Capacity 305 mcg/dL (228-428); Unsaturated Iron Binding 251 ug/dL
[2023-05-26 16:47] LABS: Ferritin 94 ng/mL (10-250)
== END 2023-05-25 14:42 | disposition home or self-care (01) ==
LOC: HO.HHCL 14:41
PROVIDERS: Visit Provider Internal Medicine
DX: E11.65 Type 2 diabetes mellitus with hyperglycemia (principal); I10 Essential (primary) hypertension
CPT/HCPCS: 36415; 80048; 80061; 80076; 82043; 82570; 82728; 83540; 85025

== ENCOUNTER 2023-07-14 14:43 | Outpatient (REF) | payer MEDICAID, SELFPAY ==
[2023-07-14 16:20] LABS: Basophils Absolute Auto 0.1 X10*3/uL (0.0-0.2); Basophils Percent Auto 0.8 % (0-2); Eosinophils Absolute Auto 0.3 X10*3/uL (0.0-0.4); Eosinophils Percent Auto 2.4 % (0-4); Hematocrit 38.3 % (37.0-47.0); Hemoglobin 11.3 g/dl (12.0-16.0); Imm Gran Abs Auto 0.04 X10*3/uL (0.00-0.03); Imm Gran Pct Auto 0.3 % (0.0-0.4); Lymphocytes Absolute Auto 4.1 X10*3/uL (1.2-4.9); Lymphocytes Percent Auto 33.9 % (20-40); MANUAL DIFF FLAG SCAN; Mean Corpuscular HGB Conc 29.5 g/dl (31.0-35.0); Mean Corpuscular Hemoglobin 23.8 pg (27.0-33.0); Mean Corpuscular Volume 80.6 fL (80.0-98.0); Mean Platelet Volume 12.5 fL (9.4-12.3); Monocytes Absolute Auto 0.7 X10*3/uL (0.1-1.2); Monocytes Percent Auto 5.9 % (2-11); Neutrophils Absolute Auto 6.8 x10*3/uL (2.0-8.3); Neutrophils Percent Auto 56.7 % (45-73); Platelet Count 345 X10*3/uL (160-400); Red Blood Count 4.75 X10*6/uL (4.20-5.50); Red Cell Distribution Width 15.8 % (11.0-16.0); SCAN SMEAR FLAG 1; White Blood Count 11.9 X10*3/uL (4.8-10.8)
[2023-07-14 16:38] LABS: Alanine Aminotransferase 7 U/L (0-31); Albumin Level 4.1 g/dL (3.5-5.0); Alkaline Phosphatase 126 U/L (39-117); Anion Gap 10 (12-20); Aspartate Amino Transferase 12 U/L (5-31); Bilirubin Total 0.2 mg/dL (0.0-1.0); Blood Urea Nitrogen 11 mg/dL (9-16); Calcium 9.6 mg/dL (8.4-10.2); Carbon Dioxide 28 mmol/L (22-29); Chloride 107 mmol/L (96-108); Estimated Glomerular Filt Rate > 60; Glucose Random 185 mg/dL (60-115); Potassium 3.6 mmol/L (3.3-5.1); Sodium 141 mmol/L (135-145); Total Protein 7.7 g/dL (6.5-8.0)
[2023-07-14 16:41] LABS: SLIDE REVIEW VERIFIED
[2023-07-14 16:53] LABS: TSH reflex Free T4 2.86 uIU/mL (0.32-4.0)
== END 2023-07-14 14:44 | disposition home or self-care (01) ==
LOC: HO.HHCL 14:43
PROVIDERS: Visit Provider Student in an Organized Health Care Education/Training Program
DX: R00.2 Palpitations (principal)
CPT/HCPCS: 36415; 80053; 84443; 85025

== ENCOUNTER 2023-10-02 14:59 | Outpatient (AMB) | payer MEDICAID, SELFPAY ==
[2023-10-02 15:08] VITALS: BP 124/70; BMI 36.6
--- NOTE | 2023-10-02 15:08 | A.OFFVIS_ITS ---
Intake Vital Signs 10/02/23 15:08 Height 5 ft 4 in Weight 212 lb 15.465 oz BMI 36.6 BP 124/70 Blood Pressure Location Lt brachial Position Sitting Intake Visit Reasons: PRINCIPAL BIOSTATISTICIAN/Palpitations/Dr. Tripp Intake Note: NPV w/ EKG Biology Adjunct Instructor Required: Yes Biology Adjunct Instructor Language: Ammonium Hydroxide Operator Name: Laci [id number] Accompanied by: Self / Same As Patient Allergies No Known Allergies [No Known Allergies*] Allergy (Verified 10/02/23 15:09) Medication List - Last Reconciled 10/02/23 by Adebayo Burks MD blood sugar diagnostic As directed celecoxib 100 mg PO BID PRN chlorthalidone 25 mg PO DAILY cholecalciferol (vitamin D3) 50 mcg PO DAILY diclofenac sodium 1% 2 grams topical QID empagliflozin (Jardiance) 25 mg PO QAM ferrous sulfate 325 mg PO DAILY glipizide ER 5 mg PO DAILY hydrocortisone 2.5% (Anusol-HC) 1 appl NH BID-QID PRN lancets (TRUEplus Lancets) As directed lisinopril 40 mg PO DAILY metformin 1,000 mg PO BID omeprazole 20 mg PO DAILY polyethylene glycol 3350 (Miralax) 17 grams PO DAILY HPI HPI Comments History of Present Illness Details Patient is here for consultation regarding palpitations. She states that she has been noticing palpitations off and on for quite some time. This can happen somewhat randomly. Can happen at nighttime or any other moments. Can last for few minutes at a time. Nothing specifically provoking do. No known cardiac issues including coronary disease or myocardial infarction or cardiomyopathy. [facility] Medical History Diabetes GERD (gastroesophageal reflux disease) Hemorrhoids HTN (hypertension) Hypothyroid Urge incontinence Surgical History Hx of colonoscopy History of Family History Family/Other Breast cancer Maternal Aunt Breast cancer Maternal Aunt Thyroid disease Father HTN (hypertension) Mother Hernia Age related osteoporosis Social History Household Members Other:: daughter Housing: Apartment Alcohol intake: former Patient Tobacco Use Status: Former Tobacco user Sexual orientation: Straight/Heterosexual Gender identity: Female Review of Systems Const Denies chills, Denies daytime sleepiness, Denies fatigue, Denies fever(s), Denies frequent falls, Denies night sweats, Denies snoring, Denies weakness, Denies weight gain and Denies weight loss Eyes Denies loss of vision ENT Denies dizziness and Denies hearing loss Card Denies chest pain, Denies chest pain with activity, Denies syncope, Denies edema, Denies claudication, Denies leg edema, Denies lightheadedness, Denies dyspnea, Denies dyspnea on exertion and Denies orthopnea Resp Denies cough, Denies excessive phlegm production, Denies dyspnea, Denies dyspnea on exertion, Denies snoring and Denies wheezing GI Denies abdominal pain, Denies hematochezia, Denies change in bowel habits, Denies change in stool character, Denies heartburn, Denies nausea and Denies vomiting Denies hematuria, Denies urinary frequency and Denies dysuria Musc Denies arthralgias, Denies muscle weakness, Denies numbness and Denies tingling Skin/Breast Denies nail changes and Denies rash Neuro Denies Abnormal speech present, Denies dizziness, Denies syncope, Denies frequent falls, Denies loss of vision, Denies memory loss, Denies numbness, Denies tingling and Denies weakness Psych Denies depression and Denies memory loss Endo Denies fatigue Aller/Immun Denies wheezing Physical Exam Vital Signs: Last Vital Signs BP 124/70 10/02/23 15:08 BMI result Body Mass Index 36.6 Const General: comfortable and no acute distress Orientation/consciousness: patient oriented x3 HEENT Other: Unremarkable Head: Yes normal to inspection Neck Neck: Yes normal visual inspection Chest Chest palpation & inspection: normal inspection of the chest Resp Auscultation: clear to auscultation bilaterally Cardio Palpation: normal PMI Heart sounds: S1 normal heart sound present, S2 normal heart sound present, no gallops, no murmurs and no rubs GI Palpation (GI): Soft to palpation Back/Spine/Pelvis Other: unremarkable Skin General skin exam: no rashes or lesions noted Neuro General: patient oriented x3 Speech: No Abnormal speech present Extrem General: Yes normal to inspection Psych Mental Status: mental status grossly normal Office Procedures EKG Details: EKG with sinus rhythm at 80/Min; possible left atrial enlargement; left ventricular hypertrophy; nonspecific ST-[place] changes; [place] [id number], Complete Assessment & Plan Assessment & Plan (1) Heart palpitations: Code(s): R00.2 - Palpitations Plan Symptoms could be related to supraventricular ventricular ectopy or atrial arrhythmias. Ventricular arrhythmias much less likely as she has no history of anything cardiac. As the palpitations are somewhat intermittent, we can do a 30 day monitor. Echocardiogram for cardiac function assessment. Follow-up after the above. Orders: Orders CA echo transthoracic complete Today R00.2 - Palpitations ECG 30 day event monitor Today I48.0 - Paroxysmal atrial fibrillation, R00.2 - Palpitations Coding Level of Care Code New Pt Level 3 (18210) Diagnoses Heart palpitations R00.2 CPT Codes EKG - CPT: 82936-[id number], Complete ([id number])
== END 2023-10-02 15:33 | disposition home or self-care (01) ==
PROVIDERS: PCP Internal Medicine; Referring Provider Internal Medicine; Visit Provider Internal Medicine
DX: R00.2 Palpitations (principal)
CPT/HCPCS: 93010; 99203

== ENCOUNTER → 2023-10-02 14:59 | Outpatient (BNVA) | payer MEDICAID, SELFPAY | PROVIDERS: PCP Internal Medicine; Visit Provider Internal Medicine | DX: R00.2 Palpitations (principal) | CPT/HCPCS: 93005; 99202 ==

== ENCOUNTER → 2023-10-25 12:36 | Outpatient (REF) | payer MEDICAID, SELFPAY ==
--- NOTE | 2023-10-25 12:39 | HM_ITS ---
Cardiac event monitor Indication: Paroxysmal atrial fibrillation Technique: Patient was hooked up to cardiac event monitor on 10/25/2023 for total period of 30 days. Compliance rate was 75%. Artifact reading was noted due to lead disconnection, exact duration unknown Findings: Baseline was normal sinus rhythm with lowest heart rate of 60 beats per minute and fastest heart of 127 beats per minute there were no significant pauses noted. Frequent mostly isolated PVCs noted with total burden of 1.32%. One 7 beat run of wide complex which could represent SVT with aberrancy at 115 beats per minute. There was no episodes of atrial fibrillation Patient activated the symptom button 12 times with only 1 correlating with sinus tachycardia. Conclusion: 1. Baseline was normal sinus rhythm without pauses 2. No evidence of atrial fibrillation 3. Frequent isolated PVCs 4. Patient reported events mostly correlated with sinus rhythm MTDD
--- NOTE | 2023-10-25 12:39 | CA_ITS ---
Transthoracic Echocardiogram Patient (Last, First, Middle): Adeola De La Fuente, Gender: Female Date of : 1970 Age: 52 Procedure Date: 10/25/2023 Procedure Type: Transthoracic Echocardiogram Location: OP Height: 162.56 cm Weight: 95.26 kg BSA: 2.00 m2 Heart Rate: 76 bpm BP: 126 / 72 mmHg Wire Stitcher Machine: ABILIO Ramos MD: Adebayo Burks MD Death Surveys Coder: Aleks Rojas MD Symptoms: R00.2 - Palpitations Study Quality: Adequate ECG Rhythm: Sinus Conclusions: - 1. Normal LV ejection fraction of 60-65% with impaired relaxation filling pattern 2. Normal cardiac valvular Doppler 3. Normal RV systolic pressure 4. No gross pericardial effusion Findings Procedure Information The quality of the study was technically difficult. The study quality is limited by patients body habitus. Left Ventricle Normal left ventricular size, thickness, and systolic function. The visually estimated ejection fraction is between 60-65%. Spectral Doppler is indicative of an impaired relaxation filling pattern. E/E prime ratio is <8, consistent with normal filling pressures. Evidence suggests grade I (mild) diastolic dysfunction. Peak GLS is -16.6%, which is mildly reduced. Right Ventricle Normal right ventricular cavity size and systolic function. Atria Both atria are normal in size. There is no evidence of interatrial shunt. Aortic Valve Normal aortic valve structure and function. There is no aortic valve stenosis. There is no aortic valve regurgitation. Mitral Valve Normal mitral valve structure and function. There is trace mitral valve regurgitation. There is no mitral valve stenosis. Pulmonic Valve The pulmonic valve is likely normal. There is trace pulmonic valve regurgitation. Tricuspid Valve Normal tricuspid valve structure. There is trace tricuspid valve regurgitation. The right ventricular systolic pressure is normal. The right ventricular systolic pressure is 26 mmHg. Normal right atrial pressure. There is no evidence of pulmonary hypertension. Great Vessels The pulmonary artery was not well visualized. Venous The inferior vena cava is normal in size and collapses greater than 50% with inspiration. Pericardium/Pleural There is no evidence of pericardial effusion. Prior Study Comparison No significant change compared to prior study dated: 04/12/2019. Measurements 2D Linear Measurements IVSd: 1.09 0.6-0.9/0.6-1.0 cm LVIDd: 4.55 3.9-5.3/4.2-5.9 cm LVIDd Index: 2.28 2.4-3.2/2.2-3.1 cm/m2 LVIDs: 3.13 2.0-3.6 cm LVPWd: 0.83 0.7-1.1 cm LA Diam: 3.70 2.7-3.8/3.0-4.0 cm LAIDs Index: 1.85 1.5-2.3 cm/m2 LV Mass: 183.84 67-162/88-224 g LV Mass Index: 91.92 43-95/49-115 g/m2 LVOT Diam: 2.10 3.0+(-)1.3 cm 2D Systolic Function EF 4C: 66.50 >55% EF 2C: 61.00 >55% EF BiP: 63.60 >55% Mitral Valve MV Pk E: 0.75 MV PK A: 0.72 MV Decel Time: 249.00 E/A: 1.00 E'Lateral: 7.18 E'Medial: 5.22 E/E' Med: 14.30 E/E' Lat: 10.40 PHT: 73.00 MVA PHT: 3.01 Decel Concho: 2.99 Aortic Valve AoV Pk Kev: 1.25 AoV Pk Grad: 6.00 CARLY: 3.10 LVOT LVOT Pk Kev: 1.12 LVOT Mn Kev: 0.74 LVOT VTI: 0.23 LVOT Pk Grad: 5.00 LVOT Mn Grad: 3.00 LVOT Diam: 2.10 LVOT Area: 3.46 Diastolic Function MV Pk E: 0.75 MV Pk A: 0.72 E/A: 1.00 E'Medial: 5.22 E/E' Med: 14.30 E' Laterial: 7.18 E/E' Lat: 10.40 Right Ventricle TAPSE (mm): 23.50 TVS' Kev: 12.40 Tricuspid Valve TR Pk Kev: 2.42 TR Pk Grad: 23.00 RA Press: 3.00 RVSP: 26.00 Great Vessels Aorta Sinus of Valsalva: 3.10 2.0-3.5 cm Ao Asc: 3.50 2.1-3.4 cm Ao Arch: 3.20 Pulmonary Valve PV Pk Kev: 0.92 Peak PV Grad: 3.00 Updated in Other Vendor System with Status of Final Aleks Rojas MD electronically signed on 10/26/2023 2:59:16 PM with status of Final
== END ==
LOC: HO.CARD 12:36
PROVIDERS: PCP Internal Medicine; Visit Provider Internal Medicine
DX: R00.2 Palpitations (principal); I48.0 Paroxysmal atrial fibrillation
CPT/HCPCS: 93270; 93306; 93356

== ENCOUNTER → 2023-10-25 12:39 | Outpatient (BNV) | payer MEDICAID, SELFPAY | PROVIDERS: PCP Internal Medicine; Visit Provider Internal Medicine Cardiovascular Disease | DX: I49.3 Ventricular premature depolarization (principal) | CPT/HCPCS: 93272; 93306 ==

== ENCOUNTER 2023-12-14 13:39 | Outpatient (AMB) | payer MEDICAID, SELFPAY ==
[2023-12-14 13:42] VITALS: BP 130/68; PULSE 70; BMI 36.7
--- NOTE | 2023-12-14 13:42 | A.OFFVIS_ITS ---
Intake Vital Signs 12/14/23 13:42 Height 5 ft 4 in Weight 213 lb 13.574 oz BMI 36.7 BP 130/68 Blood Pressure Location Lt brachial Position Sitting Pulse 70 Intake Visit Reasons: r/s followup 30 day monitor 10/25// Intake Note: follow up after holter pt feels good Supervisor Stitching Department Required: Yes Supervisor Stitching Department Name: [id number] Allergies No Known Allergies [No Known Allergies*] Allergy (Verified 10/02/23 15:09) HPI HPI Comments History of Present Illness Details 53-year-old female presents today for a follow-up. She reports her palpitations have not returned for a long time . She reports no shortness of b reath, dizziness, or chest pains. She thinks it was related to stress. [facility] Medical History Diabetes GERD (gastroesophageal reflux disease) Hemorrhoids HTN (hypertension) Hypothyroid Urge incontinence Surgical History Hx of colonoscopy History of Family History Family/Other Breast cancer Maternal Aunt Breast cancer Maternal Aunt Thyroid disease Father HTN (hypertension) Mother Hernia Age related osteoporosis Social History Household Members Other:: daughter Housing: Apartment Alcohol intake: former Patient Tobacco Use Status: Former Tobacco user Sexual orientation: Straight/Heterosexual Gender identity: Female Physical Exam Vital Signs: Last Vital Signs Pulse 70 12/14/23 13:42 BP 130/68 12/14/23 13:42 BMI result Body Mass Index 36.7 Results Reviewed Results Reviewed: 30 day monitor: Conclusion: 1. Baseline was normal sinus rhythm without pauses 2. No evidence of atrial fibrillation 3. Frequent isolated PVCs 4. Patient reported events mostly correlated with sinus rhythm Echo: Conclusions: - 1. Normal LV ejection fraction of 60-65% with impaired relaxation filling pattern 2. Normal cardiac valvular Doppler 3. Normal RV systolic pressure 4. No gross pericardial effusion Assessment & Plan Assessment & Plan (1) Heart palpitations: Code(s): R00.2 - Palpitations Plan Echocardiogram showed normal ejection fraction. KHARI shows frequent PVCs. Patient no longer symptomatic. Reviewed common triggers such as caffiene, stress, and poor sleep. Will follow-up in one year or sooner if needed. Coding Level of Care Code Est Pt Level 3 (14964) Diagnoses Heart palpitations R00.2
== END 2023-12-14 14:01 | disposition home or self-care (01) ==
PROVIDERS: PCP Internal Medicine; Visit Provider Nurse Practitioner
DX: R00.2 Palpitations (principal)
CPT/HCPCS: 99213

== ENCOUNTER → 2023-12-14 13:39 | Outpatient (BNVA) | payer MEDICAID, SELFPAY | PROVIDERS: PCP Internal Medicine; Visit Provider Nurse Practitioner | DX: R00.2 Palpitations (principal) | CPT/HCPCS: 99212 ==

== ENCOUNTER 2024-01-23 12:31 | Outpatient (AMB) | payer MEDICAID, SELFPAY ==
--- NOTE | 2024-01-23 12:40 | A.OFFVIS_ITS ---
Vital Signs 01/23/24 12:42 Height 5 ft 4 in Weight 212 lb BMI 36.4 BP 110/68 Blood Pressure Location Lt radial Position Sitting Pulse 70 Intake Visit Reasons: Gastroesophageal reflux disease (GERD) Intake Note: Adeola presents in the office as a new patient for GERD CC: She states she is here today today for her acid reflux. States that she more so has constipation than diarrhea. 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 Patient was also instructed to avoid dietary triggers and late night snacking. Patient was instructed that she should also try to takes something to help her move her bowels so she can feel like she can empty them daily. This might help with her evening abdominal fullness and acid reflux. Patient was encouraged to get stool studies to check for H pylori IBS (irritable bowel syndrome) Postprandial abdominal bloating especially towards the end of the day. Patient is not emptying her bowels completely. She only moves her bowels every few days. Will start her on MiraLax I am Colace. Elimination diet discussed with patient. Low FODMAP diet discussed with patient Constipation Patient was encouraged to use MiraLax every morning in her coffee or juice. She can also take docusate sodium at bedtime. Patient has recently started experiencing rectal pain due to her hemorrhoids. Stool softener should help her with that. I also will give for script for Anusol. I will see patient in 3 months, sooner on as needed basis. Patient is agreeable to plan of care and verbalizes understanding of instructions. She was given the opportunity to ask questions and all questions answered. ? Thank you for allowing me to participate in her care Plan Medications New docusate sodium 100 mg PO BEDTIME 90 caps 3RF K59.00 hydrocortisone 2.5% (Anusol-HC) use as directed 1 appl LA BID-QID PRN 30 grams 3RF hemorrhoids K64.9 polyethylene glycol 3350 (Miralax) 17 grams PO DAILY 510 grams 2RF Discontinued cyclobenzaprine Discontinued Reason: Patient no longer taking 5 mg PO BEDTIME PRN 3 tabs 0RF muscle spasm ketorolac Patient received Toradol in the emergency room. Please instruct patient to stop all other NSAID use. Discontinued Reason: Patient no longer taking 10 mg PO Q6H 5 days PRN 20 tabs 0RF pain hydrocortisone 2.5% Discontinued Reason: Patient no longer taking 1 appl LA BID-QID PRN 30 grams 0RF hemorrhoids LAST VISIT Patient is here today for requested visit. Patient was previously seen by me and last visit was in July of 2022. Patient reports ongoing symptoms of epigastric pain and fullness postprandially. Postprandial abdominal bloating. Patient reports to be constipated no BM for 2-3 days then diarrhea all day. Patient goes through that cycle on and off. Patient denies any melena, hematoc hezia, unintentional weight loss or ribbon like stools. Currently patient is not taking anything to help her move her bowels better. Patient denies any nausea or vomiting. [facility] Medical History Hypothyroid GERD (gastroesophageal reflux disease) Urge incontinence HTN (hypertension) Hemorrhoids Diabetes Surgical History Hx of colonoscopy History of Family History Family/Other Breast cancer Maternal Aunt Breast cancer Maternal Aunt Thyroid disease Father HTN (hypertension) Mother Hernia Age related osteoporosis Social History Household Members Other:: daughter Housing: Apartment Alcohol intake: former Patient Tobacco Use Status: Former Tobacco user Sexual orientation: Straight/Heterosexual Gender identity: Female Review of Systems Const Denies weight gain and Denies weight loss ENT Reports no additional complaints, Denies dysphagia and Denies odynophagia Card Reports no additional complaints Resp Reports no additional complaints GI Reports abdominal pain (epigastric), Denies belching, Denies melena, Denies bloating, Denies change in bowel habits, Reports constipation, Denies dysphagia, Denies excessive flatus, Denies dyspepsia, Reports heartburn, Denies diarrhea, Reports loose stools (Occasional), Denies nausea, Denies odynophagia and Denies vomiting Reports no additional complaints Musc Reports no additional complaints Neuro Reports no additional complaints Psych Reports no additional complaints Endo Reports no additional complaints Physical Exam Vital Signs: Last Vital Signs Pulse 70 01/23/24 12:42 BP 110/68 01/23/24 12:42 BMI result Body Mass Index 36.4 Const General: healthy appearing and no acute distress Nutritional Appearance: obese Orientation/consciousness: patient oriented x3 Resp Effort & Inspection: normal respiratory effort, able to speak in complete sentences, no tracheal deviation and symmetric chest movement Auscultation: clear to auscultation bilaterally Cardio Rate: regular rate GI Inspection: Yes normal to inspection, No distended and Yes obesity Palpation (GI): Soft to palpation, not firm, nontender and No hepatosplenomegaly present Auscultation: normal bowel sounds General: Yes no CVA tenderness Back/Spine/Pelvis Back: no CVA tenderness Skin General skin exam: elasticity normal, turgor normal and dry skin Neuro General: patient oriented x3 Psych Appearance: grossly normal Mental Status: mental status grossly normal Assessment & Plan Assessment & Plan (1) GERD (gastroesophageal reflux disease): Code(s): K21.9 - Gastro-esophageal reflux disease without esophagitis Category: Medical Qualifiers: Esophagitis presence: esophagitis presence not specified Qualified Code(s): K21.9 - Gastro-esophageal reflux disease without esophagitis (2) IBS (irritable bowel syndrome): Code(s): K58.9 - Irritable bowel syndrome without diarrhea Qualifiers: Irritable bowel syndrome type: with both diarrhea and constipation Qualified Code(s): K58.2 - Mixed irritable bowel syndrome (3) Constipation: Code(s): K59.00 - Constipation, unspecified Qualifiers: Constipation type: slow transit constipation Qualified Code(s): K59.01 - Slow transit constipation (4) Postprandial abdominal bloating: Code(s): R14.0 - Abdominal distension (gaseous) (5) Postprandial epigastric pain: Code(s): R10.13 - Epigastric pain Plan Patient will continue omeprazole. Avoid dietary triggers and late night snacking. Staying upright for minimal 3 hours after meals discussed with patient. Patient will start taking senna 2 tablets in the evening. Increase fluid intake and activity to promote better bowel motility. Patient had colonoscopy in October of 2019, no polyps found and recommendation was made for colonoscopy to be repeated in 10 years. I will see patient in 2 months to re- evaluate. If patient will continue to have epigastric pain postprandially she should go for upper endoscopy to evaluate for gastritis, esophagitis, gastric or peptic ulcers, Schulz's. Patient is agreeable to current plan of care and verbalizes understanding of instructions. She was given the opportunity to ask questions and all questions answered. Thank you for allowing me to participate in her care Medications: New sennosides (Natural Senna Laxative) 8.6 mg PO BEDTIME 90 tabs 3RF constipation K59.00 - Constipation, unspecified Coding Level of Care Code Est Pt Level 4 (87728) Diagnoses Gastroesophageal reflux disease, unspecified whether esophagitis present K21.9 Esophagitis presence: esophagitis presence not specified Irritable bowel syndrome with both constipation and diarrhea K58.2 Irritable bowel syndrome type: with both diarrhea and constipation Slow transit constipation K59.01 Constipation type: slow transit constipation Postprandial abdominal bloating R14.0 Postprandial epigastric pain R10.13 Time Spent (min) 35 Comment 20 minutes spent with patient and additional 15 minutes spent reviewing her records
[2024-01-23 12:42] VITALS: BP 110/68; PULSE 70; BMI 36.4
== END 2024-01-23 13:12 | disposition home or self-care (01) ==
PROVIDERS: PCP Internal Medicine; Visit Provider Nurse Practitioner Family
DX: K21.9 Gastro-esophageal reflux disease without esophagitis (principal); K58.2 Mixed irritable bowel syndrome; K59.01 Slow transit constipation; R14.0 Abdominal distension (gaseous); R10.13 Epigastric pain
CPT/HCPCS: 99214

== ENCOUNTER → 2024-01-23 12:31 | Outpatient (BNVA) | payer MEDICAID, SELFPAY | PROVIDERS: PCP Internal Medicine; Visit Provider Nurse Practitioner Family | DX: K21.9 Gastro-esophageal reflux disease without esophagitis (principal); K58.2 Mixed irritable bowel syndrome; K59.01 Slow transit constipation; R14.0 Abdominal distension (gaseous); R10.13 Epigastric pain | CPT/HCPCS: 99212 ==

== ENCOUNTER 2024-03-06 14:42 | Outpatient (REF) | payer MEDICAID, SELFPAY ==
[2024-03-06 16:13] LABS: Basophils Absolute Auto 0.1 X10*3/uL (0.0-0.2); Basophils Percent Auto 0.9 % (0-2); Eosinophils Absolute Auto 0.3 X10*3/uL (0.0-0.4); Eosinophils Percent Auto 2.5 % (0-4); Hematocrit 37.4 % (37.0-47.0); Hemoglobin 11.6 g/dl (12.0-16.0); Imm Gran Abs Auto 0.06 X10*3/uL (0.00-0.03); Imm Gran Pct Auto 0.5 % (0.0-0.4); Lymphocytes Absolute Auto 4.4 X10*3/uL (1.2-4.9); Lymphocytes Percent Auto 34.8 % (20-40); MANUAL DIFF FLAG SCAN; Mean Corpuscular Hemoglobin 24.3 pg (27.0-33.0); Mean Corpuscular Volume 78.2 fL (80.0-98.0); Mean Platelet Volume 12.1 fL (9.4-12.3); Monocytes Absolute Auto 0.8 X10*3/uL (0.1-1.2); Monocytes Percent Auto 6.2 % (2-11); Neutrophils Absolute Auto 6.9 x10*3/uL (2.0-8.3); Neutrophils Percent Auto 55.1 % (45-73); Platelet Count 389 X10*3/uL (160-400); Red Blood Count 4.78 X10*6/uL (4.20-5.50); SCAN SMEAR FLAG 1; White Blood Count 12.5 X10*3/uL (4.8-10.8)
[2024-03-06 16:43] LABS: SLIDE REVIEW VERIFIED
== END 2024-03-06 14:43 | disposition home or self-care (01) ==
LOC: HO.HHCL 14:42
PROVIDERS: Visit Provider Internal Medicine
DX: D72.829 Elevated white blood cell count, unspecified (principal); D50.9 Iron deficiency anemia, unspecified
CPT/HCPCS: 36415; 85025

== ENCOUNTER 2024-03-14 14:07 | Outpatient (REF) | payer MEDICAID, SELFPAY ==
--- NOTE | ~2024-03-14 | MM_ITS ---
EXAMINATION: MM SCREENING DIGITAL BREAST TOMOSYNTHESIS, BILATERAL CLINICAL INFORMATION: Screening. Asymptomatic. COMPARISON: Mammography: This study is compared with prior exams dating back to 2020. TECHNIQUE: Digital breast tomosynthesis is performed in both the craniocaudal and mediolateral oblique views along with computer-aided detection (CAD). Synthesized 2D images are generated from the tomosynthesis. FINDINGS: The breasts are heterogeneously dense, which may obscure small masses (ACR BI-RADS breast composition Category c). There are no significant masses, abnormal calcifications, or other abnormalities. Scattered benign calcifications are present in each breast. MM/MM tomosynthesis screening BI IMPRESSION: No mammographic evidence of malignancy. ASSESSMENT: BI-RADS BI-RADS 2 - Benign Findings RECOMMENDATION: Routine annual mammography screening. 1 year F/U This examination should not preclude the clinical evaluation of a suspicious palpable abnormality. This patient's information was entered into a reminder system with a target due date for their next mammogram.
== END 2024-03-14 14:08 | disposition home or self-care (01) ==
LOC: HO.MAMMO 14:07
PROVIDERS: Visit Provider Internal Medicine
DX: Z12.31 Encounter for screening mammogram for malignant neoplasm of breast (principal)
CPT/HCPCS: 77063; 77067

== ENCOUNTER → 2024-03-14 14:30 | Outpatient (BNV) | payer MEDICAID, SELFPAY | PROVIDERS: Visit Provider Radiology Diagnostic Radiology | DX: Z12.31 Encounter for screening mammogram for malignant neoplasm of breast (principal) | CPT/HCPCS: 77063; 77067 ==

== ENCOUNTER → 2024-04-04 15:02 | Outpatient (BNV) | payer MEDICAID, SELFPAY | PROVIDERS: PCP Internal Medicine; Referring Provider Internal Medicine; Visit Provider Internal Medicine Medical Oncology | DX: D64.9 Anemia, unspecified (principal); D72.829 Elevated white blood cell count, unspecified | CPT/HCPCS: 99204 ==

== ENCOUNTER 2024-04-08 15:08 | Outpatient (REF) | payer MEDICAID, SELFPAY ==
[2024-04-12 17:23] LABS: HPV mRNA E6/E7 Detected (Not Detected)
== END 2024-04-08 15:09 | disposition home or self-care (01) ==
LOC: HO.LNP 15:08
PROVIDERS: PCP Internal Medicine; Visit Provider Obstetrics & Gynecology
DX: Z01.419 Encounter for gynecological examination (general) (routine) without abnormal findings (principal); Z11.51 Encounter for screening for human papillomavirus (HPV)
CPT/HCPCS: 87624; 88175; 99396

== ENCOUNTER 2024-04-08 15:08 | Outpatient (AMB) | payer MEDICAID, SELFPAY ==
--- NOTE | 2024-04-08 15:27 | A.OFFVIS_ITS ---
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 No complaints. Last Pap/HPV was in 02/24 was ascus/HPV positive, colpo/biopsy ECC showed rare atypical cells Last Mammogram was done in 03/27, the report is still pending Last colonoscopy was in 2019, the recommendation was to repeat in 10 years [facility] Medical History Dysplasia of cervix, low grade (MANISHA 1) Hypothyroid GERD (gastroesophageal reflux disease) Urge incontinence HTN (hypertension) Hemorrhoids Diabetes Surgical History Hx of colonoscopy History of Family History Family/Other Breast cancer Maternal Aunt Breast cancer Maternal Aunt Thyroid disease Father HTN (hypertension) Mother Hernia Age related osteoporosis Social History Household Members Other:: daughter Housing: Apartment Alcohol intake: former Patient Tobacco Use Status: Former Tobacco user service: No Current occupational status: employed Sexual orientation: Straight/Heterosexual Gender identity: Female Female Reproductive History Menstrual Date of last pap smear: 02/02/23 History of abnormal pap smear: Yes (Ascus ,HPV +) Date of Mammogram: 03/14/24 Review of Systems Const All systems reviewed & are unremarkable except as noted in HPI and below Card Reports as per HPI Resp Reports as per HPI GI Reports as per HPI and Reports no additional complaints Reports as per HPI Physical Exam Vital Signs: Last Vital Signs BP 124/70 04/08/24 15:28 BMI result Body Mass Index 36.7 Const General: cooperative, healthy appearing and comfortable Chest Chest palpation & inspection: normal inspection of the chest and normal palpation of entire chest wall Breast/axilla inspection: normal inspection of the breasts and normal inspection of the axillae Breast/axilla palpation: normal palpation of the breasts, normal palpation of the axillae and no axillary lymphadenopathy Resp Effort & Inspection: normal respiratory effort Auscultation: clear to auscultation bilaterally Percussion: percussion normal Cardio Palpation: normal PMI Rate: regular rate Rhythm: regular rhythm Heart sounds: no murmurs and no rubs Peripheral pulses: Peripheral pulses 2+ throughout GI Inspection: Yes normal to inspection Palpation (GI): Soft to palpation, nontender, no guarding, not rigid and No hepatosplenomegaly present Percussion: Yes normal to percussion Auscultation: normal bowel sounds Rectal Exam - Female: deferred General: Yes bladder normal to palpation External Female Exam: No lesion Speculum Exam - Vagina: normal appearance of the vagina, normal palpation, normal vaginal discharge and not erythematous Speculum Exam - Cervix: normal appearance of the cervix and normal palpation Bimanual exam- vagina & uterus: normal bimanual exam, normal palpation, uterine size normal, bladder normal to palpation, consistency normal and normal palpation Bimanual Exam- Adnexa, other: normal adnexae, no masses and no tenderness Assessment & Plan Assessment & Plan (1) Well woman exam: Comment: MANISHA 1 since 07/24 Code(s): Z01.419 - Encounter for gynecological examination (general) (routine) without abnormal findings Category: Medical Plan: Co testing done. Counseled the patient about the recommended dietary allowance of 1200 mg of Calcium & 600 IU of vitamin D. Instructions given the patient to schedule next screening Mammogram in 03/28. The patient was instructed to perform monthly self-breast exams and schedule annual exam in a year. All questions answered and the patient verbalized understanding. Coding Level of Care Code Est Pt Prev Care 40-64y(23517) Diagnoses Well woman exam Z01.419
[2024-04-08 15:28] VITALS: BP 124/70; BMI 36.7
== END 2024-04-08 15:15 | disposition home or self-care (01) ==
LOC: HO.HWS 15:08
PROVIDERS: PCP Internal Medicine; Referring Provider Internal Medicine; Visit Provider Obstetrics & Gynecology
DX: Z01.419 Encounter for gynecological examination (general) (routine) without abnormal findings (principal)
CPT/HCPCS: 99396

== ENCOUNTER 2024-06-03 15:05 | Outpatient (AMB) | payer MEDICAID, SELFPAY ==
--- NOTE | 2024-06-03 15:31 | A.OFFVIS_ITS ---
Intake Visit Reasons: Colposcopy Allergies No Known Allergies [No Known Allergies*] Allergy (Verified 04/08/24 15:37) HPI Comments Details: Presenting for colposcopy for ascus HPV E6 E7 positive [facility] Medical History (Updated 06/03/24 @ 16:10 by Murali Leon MD) Dysplasia of cervix, low grade (MANISHA 1) Hypothyroid GERD (gastroesophageal reflux disease) Urge incontinence HTN (hypertension) Hemorrhoids Diabetes Surgical History Hx of colonoscopy History of Family History Family/Other Breast cancer Maternal Aunt Breast cancer Maternal Aunt Thyroid disease Father HTN (hypertension) Mother Hernia Age related osteoporosis Social History Household Members Other:: daughter Housing: Apartment Alcohol intake: former Patient Tobacco Use Status: Former Tobacco user service: No Current occupational status: employed Sexual orientation: Straight/Heterosexual Gender identity: Female Office Procedures Colposcopy Colposcopy: Pre-Procedure Counseling: Before beginning the procedure, I conducted comprehensive counseling with the patient. We thoroughly discussed the procedure itself, including its details, alternatives, and all associated risks. This included but not limited to the following complications such as bleeding, infection, and injury to the vagina, bladder, and vessels, as well as the potential need for transfusion with all its associated risks. Subsequently, the patient sign the consent. Pap smear result: Ascus/HPV E6 E7 positive Procedure: During the procedure, the following steps were performed: A speculum was inserted, and acetic acid was applied. Colposcopy was conducted, allowing visualization of the transformation zone. Acetowhite lesions were identified at the 7 o'clock position. Cervical biopsies were obtained from the 7 o'clock position, followed by an endocervical curettage (ECC). Vaginoscopy of the upper vagina revealed no evidence of aceto-white lesions. Hemostasis was achieved using Monsel solution, and the patient tolerated the procedure well. Post-Procedure Instructions: The patient was advised to promptly contact the office or the after hours answering service or go to the emergency room if experiencing a temperature exceeding 100.4?F, abdominal pain, nausea/vomiting, or bleeding. Additionally, the patient was instructed to abstain from vaginal intercourse and bathtub use. The patient confirmed understanding of these instructions. Discharge Instructions: The patient was instructed to schedule a follow-up appointment in 2 weeks for further evaluation and management. Please note that this note was generated using a voice recognition program, and errors may have occurred during slab lifting supervisor. [id number] of cervix including upper vagina with biopsy and ECC Procedure code (CPT) selection complete Assessment & Plan Assessment & Plan (1) ASCUS with positive high risk HPV cervical: Code(s): R87.610 - Atypical squamous cells of undetermined significance on cytologic smear of cervix (ASC-US); R87.810 - Cervical high risk human papillomavirus (HPV) DNA test positive Category: Medical Plan: Discussed with the patient the result of her abnormal pap, its significance, risk of progression, persistence, and regression. the false positive/negative rate of a Pap smear as a screening test in detecting cervical cancer and the indication for a diagnostic test -colposcopy, biopsy, endocervical curettage. The patient verbalized understanding and agreed with the plan, all questions answered. Colpo/biopsy/ECC done, see procedure note Orders: Orders AMB Colposcopy Today R87.610 - Atypical squamous cells of undetermined significance on cytologic smear of cervix (ASC-US), R87.810 - Cervical high risk human papillomavirus (HPV) DNA test positive Coding Level of Care Code Procedure Only Diagnoses ASCUS with positive high risk HPV cervical R87.610; R87.810 CPT Codes Colposcopy - CPT: 91349-[id number] of cervix including upper vagina with biopsy and ECC ([id number])
== END 2024-06-03 16:01 | disposition home or self-care (01) ==
PROVIDERS: PCP Internal Medicine; Visit Provider Obstetrics & Gynecology
DX: R87.610 Atypical squamous cells of undetermined significance on cytologic smear of cervix (ASC-US) (principal); R87.810 Cervical high risk human papillomavirus (HPV) DNA test positive
CPT/HCPCS: 57454

== ENCOUNTER 2024-06-03 15:05 | Outpatient (REF) | payer MEDICAID, SELFPAY | END 2024-06-03 15:06 | disposition home or self-care (01) | LOC: HO.LNP 15:05 | PROVIDERS: PCP Internal Medicine; Visit Provider Obstetrics & Gynecology | DX: R87.610 Atypical squamous cells of undetermined significance on cytologic smear of cervix (ASC-US) (principal); R87.810 Cervical high risk human papillomavirus (HPV) DNA test positive | CPT/HCPCS: 57454; 88305 ==

== ENCOUNTER → 2024-06-26 15:41 | Outpatient (BNVA) | payer MEDICAID, SELFPAY | PROVIDERS: PCP Internal Medicine; Visit Provider Obstetrics & Gynecology ==

== ENCOUNTER 2024-08-07 15:51 | Outpatient (REF) | payer MEDICAID, SELFPAY | END 2024-08-07 15:52 | disposition home or self-care (01) | LOC: HO.LNP 15:51 | PROVIDERS: PCP Internal Medicine; Visit Provider Obstetrics & Gynecology | DX: R87.610 Atypical squamous cells of undetermined significance on cytologic smear of cervix (ASC-US) (principal); R87.810 Cervical high risk human papillomavirus (HPV) DNA test positive | CPT/HCPCS: 88305; 99212 ==

== ENCOUNTER 2024-08-07 15:51 | Outpatient (AMB) | payer MEDICAID, SELFPAY ==
[2024-08-07 16:06] VITALS: BMI 36.7
--- NOTE | 2024-08-07 16:06 | MHC.OFFVIS ---
Vital Signs 08/07/24 16:06 Height 5 ft 4 in Weight 213 lb 13.574 oz BMI 36.7 Intake Visit Reasons: ECC Hydraulic Jack Adjuster Required: Yes Hydraulic Jack Adjuster Language: Executive Director Sheltered Workshop Services: Hydraulic Jack Adjuster Present (in person) Hydraulic Jack Adjuster Name: Meera AGUIRRE Information Interpreted: non-clinical & clinical Occupational Health Physician: Occupational Health Physician Present (Meera AGUIRRE) Accompanied by: Self / Same As Patient Allergies No Known Allergies [No Known Allergies*] Allergy (Verified 08/07/24 16:11) Post menopausal: Yes HPI Comments Details: Presenting post colpo for follow-up. The patient is doing well with no complaints. The pathology showed the following: A. Endocervix, curettage: Squamous epithelium within normal limits; no endocervical epithelium present. B. Cervix, 7 o'clock, biopsy: Mildly inflamed squamous mucosa with reactive changes; no endocervical epithelium present PFSH Medical History Dysplasia of cervix, low grade (MANISHA 1) Hypothyroid GERD (gastroesophageal reflux disease) Urge incontinence HTN (hypertension) Hemorrhoids Diabetes Surgical History Hx of colonoscopy History of Family History Family/Other Breast cancer Maternal Aunt Breast cancer Maternal Aunt Thyroid disease Father HTN (hypertension) Mother Hernia Age related osteoporosis Social History Household Members Other:: daughter Housing: Apartment Alcohol intake: former Patient Tobacco Use Status: Former Tobacco user service: No Current occupational status: employed Sexual orientation: Straight/Heterosexual Gender identity: Female Review of Systems Const All systems reviewed & are unremarkable except as noted in HPI and below Physical Exam Vital Signs: BMI result Body Mass Index 36.7 General: Yes no CVA tenderness External Female Exam: normal external appearance and normal appearance of the urethra Speculum Exam - Vagina: normal appearance of the vagina, normal palpation, no lesions and no masses Speculum Exam - Cervix: normal appearance of the cervix, normal palpation, no lesions, no masses and nontender Bimanual exam- vagina & uterus: normal bimanual exam, normal palpation, uterine size normal, normal palpation, uterine shape normal, No Cervical tenderness present and non-tender Bimanual Exam- Adnexa, other: normal adnexae Back/Spine/Pelvis Back: no CVA tenderness Assessment & Plan Assessment & Plan (1) ASCUS with positive high risk HPV cervical: Code(s): R87.610 - Atypical squamous cells of undetermined significance on cytologic smear of cervix (ASC-US); R87.810 - Cervical high risk human papillomavirus (HPV) DNA test positive Category: Medical Plan: Pre-Procedure Counseling: Before beginning the procedure, I conducted comprehensive counseling with the patient. We thoroughly discussed the procedure itself, including its details, alternatives, and all associated risks. This included but not limited to the following complications such as bleeding, infection, and injury to the vagina, bladder, and vessels, as well as the potential need for transfusion with all its associated risks. Subsequently, the patient sign the consent. Pap smear result: ASCUS HPV Procedure: During the procedure, the following steps were performed: A speculum was inserted, and acetic acid was applied. ECC repeated with difficulties because of body habitus and inability to reach the endocervix. Samples sent to pathology. Hemostasis was achieved using Monsel solution, and the patient tolerated the procedure well. Post-Procedure Instructions: The patient was advised to promptly contact the office or the after hours answering service or go to the emergency room if experiencing a temperature exceeding 100.4?F, abdominal pain, nausea/vomiting, or bleeding. Additionally, the patient was instructed to abstain from vaginal intercourse and bathtub use. The patient confirmed understanding of these instructions. Discharge Instructions: The patient was instructed to schedule a follow-up appointment in 2 weeks for further evaluation and management. Please note that this note was generated using a voice recognition program, and errors may have occurred during full service vending driver. Coding Level of Care Code Est Pt Level 3 (48144) Diagnoses ASCUS with positive high risk HPV cervical R87.610; R87.810
== END 2024-08-08 11:16 | disposition home or self-care (01) ==
PROVIDERS: PCP Internal Medicine; Visit Provider Obstetrics & Gynecology
DX: R87.610 Atypical squamous cells of undetermined significance on cytologic smear of cervix (ASC-US) (principal); R87.810 Cervical high risk human papillomavirus (HPV) DNA test positive
CPT/HCPCS: 99213

== ENCOUNTER 2024-08-15 15:16 | Outpatient (AMB) | payer MEDICAID, SELFPAY ==
--- NOTE | 2024-08-15 15:18 | MHC.OFFVIS ---
Intake Visit Reasons: ECC results Associate Director Career Services Required: Yes Associate Director Career Services Language: Pot Fluxer Services: Associate Director Career Services Present (in person) Associate Director Career Services Name: Meera AGUIRRE Allergies No Known Allergies [No Known Allergies*] Allergy (Verified 08/07/24 16:11) HPI Comments Details: The patient is scheduled a telehealth visit to discuss the results of pathology for ECC. Pathology showed the following: Endocervix, curettage: Fragments of squamous epithelium within normal limits; no endocervical epithelium present. 06/27 colposcopy biopsy ECC showed the following pathology: A. Endocervix, curettage: Squamous epithelium within normal limits; no endocervical epithelium present. B. Cervix, 7 o'clock, biopsy: Mildly inflamed squamous mucosa with reactive changes; no endocervical epithelium present Pap smear was ascus/HPV E6 E7 positive, HPV 16/18/45 negative [facility] Medical History Dysplasia of cervix, low grade (MANISHA 1) Hypothyroid GERD (gastroesophageal reflux disease) Urge incontinence HTN (hypertension) Hemorrhoids Diabetes Surgical History Hx of colonoscopy History of Family History Family/Other Breast cancer Maternal Aunt Breast cancer Maternal Aunt Thyroid disease Father HTN (hypertension) Mother Hernia Age related osteoporosis Social History Household Members Other:: daughter Housing: Apartment Alcohol intake: former Patient Tobacco Use Status: Former Tobacco user service: No Current occupational status: employed Sexual orientation: Straight/Heterosexual Gender identity: Female Review of Systems Const All systems reviewed & are unremarkable except as noted in HPI and below Reports as per HPI and Reports no additional complaints GI Reports no additional complaints Reports no additional complaints Telehealth Telehealth Telehealth Platform: Telephone Location of provider rendering services: practice address Location of patient: address on file Patient Identification confirmed using: Name, : Yes Telehealth method: voice only Patient verbally consented to treatment: Yes Patient verbally consented to billing insurance company: Yes Patient informed of any privacy concerns related to visit: Yes Assessment & Plan Assessment & Plan (1) ASCUS with positive high risk HPV cervical: Comment: MANISHA I in , ascus/HPV + in , no endo cells on ECC Code(s): R87.610 - Atypical squamous cells of undetermined significance on cytologic smear of cervix (ASC-US); R87.810 - Cervical high risk human papillomavirus (HPV) DNA test positive Category: Medical Plan: Discussed with the patient the pathology results of the colposcopy biopsies & endocervical curettage ( negative with no endocervical cells on ECC). Discussed with the patient the sensitivity specificity, positive and negative predictive value in detecting cervical cancer in addition discussed the regression, persistence and progression rates. Discussed with the patient the options of treatment either LEEP as a diagnostic/therapeutic next step since the patient had MANISHA 1 since 2019 with no endocervical cells present on ECC and endocervical pathology including severe dysplasia or malignancy has not been ruled out versus repeat co-testing in 12 months, if cytology and or HPV are abnormal will proceed was colposcopy biopsy and endocervical curettage, if lesions gets worse or stays persistent for 2 years will proceed with loop electric excision procedure. All pros and cons, risks and benefits of each approach were discussed with the patient, the patient decided to proceed with LEEP cone with post cone ECC as a diagnostic /therapeutic next step. Instructions given the patient is schedule a preop visit within 2 weeks. All questions answered the patient verbalized understanding. I spent a total of 8 minutes talking to the patient via phone. Coding Level of Care Code Tele Est Pt Level 1 (10160) Diagnoses ASCUS with positive high risk HPV cervical R87.610; R87.810
== END 2024-08-15 16:15 | disposition home or self-care (01) ==
LOC: HO.HWS 15:16
PROVIDERS: PCP Internal Medicine; Visit Provider Obstetrics & Gynecology
DX: R87.610 Atypical squamous cells of undetermined significance on cytologic smear of cervix (ASC-US) (principal); R87.810 Cervical high risk human papillomavirus (HPV) DNA test positive
CPT/HCPCS: 99213

== ENCOUNTER → 2024-08-15 15:16 | Outpatient (BNVA) | payer MEDICAID, SELFPAY | PROVIDERS: PCP Internal Medicine; Visit Provider Obstetrics & Gynecology ==

== ENCOUNTER 2024-08-22 15:12 | Outpatient (AMB) | payer MEDICAID, SELFPAY ==
--- NOTE | 2024-08-22 15:14 | MHC.OFFVIS ---
Vital Signs 08/22/24 15:15 Height 5 ft 4 in Weight 213 lb BMI 36.6 Intake Visit Reasons: pre op Senior Telecommunications Technician Required: Yes Senior Telecommunications Technician Language: Instructional Systems Design Consultant Services: Senior Telecommunications Technician Present (in person) Senior Telecommunications Technician Name: Meera AGUIRRE Information Interpreted: non-clinical & clinical Registered Nurse Nursery: Registered Nurse Nursery Present (Meera AGUIRRE) Accompanied by: Self / Same As Patient Allergies No Known Allergies [No Known Allergies*] Allergy (Verified 08/22/24 15:19) Is last menstrual period known: Yes Last menstrual period: 07/02/20 Post menopausal: No Patient : No Do you need a note to return to daycare/school/sports/work: Yes (for surgery on monday) HPI Comments Details: Presenting for follow-up post repeat ECC for ascus HPV positive followed by colpo biopsy ECC which was negative and with no evidence of endocervical cells, ECC was repeated showed the following pathology: Fragments of squamous epithelium within normal limits; no endocervical epithelium present 07/24 LGSIL, colpo biopsy MANISHA 1 08/24 LGSIL, colpo biopsy MANISHA 1 02/24 ascus/HPV positive, ECC rare atypical cells 04/27 ASCUS HPV positive, colpo/biopsy/ECC no endocervicl cells PFSH Medical History (Updated 08/22/24 @ 15:38 by Murali Leon MD) Dysplasia of cervix, low grade (MANISHA 1) Hypothyroid GERD (gastroesophageal reflux disease) Urge incontinence HTN (hypertension) Hemorrhoids Diabetes Surgical History Hx of colonoscopy History of Family History Family/Other Breast cancer Maternal Aunt Breast cancer Maternal Aunt Thyroid disease Father HTN (hypertension) Mother Hernia Age related osteoporosis Social History Household Members Other:: daughter Housing: Apartment Alcohol intake: former Patient Tobacco Use Status: Former Tobacco user service: No Current occupational status: employed Sexual orientation: Straight/Heterosexual Gender identity: Female Female Reproductive History Menstrual Date of last menstrual period: 07/02/20 Total pregnancies: 2 Full term: 2 Review of Systems Card Reports as per HPI and Reports no additional complaints Resp Reports as per HPI and Reports no additional complaints GI Reports as per HPI and Reports no additional complaints Reports as per HPI Physical Exam Vital Signs: BMI result Body Mass Index 36.6 Assessment & Plan Assessment & Plan (1) ASCUS with positive high risk HPV cervical: Comment: MANISHA I in , ascus/HPV + in , no endo cells on ECC, , no endocells on repeat ecc History of atypical glandular cells on ECC in 2022 Code(s): R87.610 - Atypical squamous cells of undetermined significance on cytologic smear of cervix (ASC-US); R87.810 - Cervical high risk human papillomavirus (HPV) DNA test positive Category: Medical Plan: Discussed with the patient the results the colposcopy/biopsy/ECC, no endocervical cells on ECC x2 with a history of atypical glandular cells on ECC in 2022. Options of treatment discussed with the patient included either co testing in six-months versus LEEP cone with post cone ECC to rule out endocervical pathology. All pros and cons, risks and benefits of each were discussed with the patient, the patient decided to proceed with repeat six-months co testing. Instructions given the patient to schedule six-months co testing. All questions answered, the patient verbalized understanding Coding Level of Care Code Est Pt Level 3 (23713) Diagnoses ASCUS with positive high risk HPV cervical R87.610; R87.810
[2024-08-22 15:15] VITALS: BMI 36.6
== END 2024-08-22 15:45 | disposition home or self-care (01) ==
LOC: HO.HWS 15:12
PROVIDERS: PCP Internal Medicine; Visit Provider Obstetrics & Gynecology
DX: R87.610 Atypical squamous cells of undetermined significance on cytologic smear of cervix (ASC-US) (principal); R87.810 Cervical high risk human papillomavirus (HPV) DNA test positive
CPT/HCPCS: 99213

== ENCOUNTER → 2024-08-22 15:12 | Outpatient (BNVA) | payer MEDICAID, SELFPAY | PROVIDERS: PCP Internal Medicine; Visit Provider Obstetrics & Gynecology | DX: R87.610 Atypical squamous cells of undetermined significance on cytologic smear of cervix (ASC-US) (principal); R87.810 Cervical high risk human papillomavirus (HPV) DNA test positive | CPT/HCPCS: 99212 ==

== ENCOUNTER 2024-10-29 13:13 | Outpatient (REF) | payer MEDICAID, SELFPAY ==
--- OUTSIDE RECORDS SUMMARY | 2024-10-29 16:11 | XMS_ITS | Encounter Summary ---
Author Organization [employer] Address [address] [facility] [address] [place] [address] Care Team Providers Care Fusion Juncture Grinder Name Role Phone Nadine Ham MD Primary Care Provide r Reason for Visit * Reason Comments Med Refill Encounter Details Date Type Department Care Team (Late st Contact Info) Description 10/15/[address] [facility] MEDICINE [address] [place] [address] Doreen Marques MD [address] [place] [address] Essential hypertension Social History Tobacco Use Types Packs/Day Years Used Date Smoking Tobacco: Never Passive Smoke Exposure: Never Smokeless Tobacco: Never Depression Answer Date Recorded Patient Health Questionnaire-9 Score 0 06/15/2023 Housing Stability Answer Date Recorded What is your housing situation today? I have eben banegas 06/26/[address] you li ve. Do you have problems with any of the following? None of the above 06/26/2023 Food Insecurity Answer Date Recorded Within the past 12 months, y ou worried that your food would run out before you got money to buy more: Never True 06/26/2023 Within the past 12 months,th e food you bought just didn't last and you didn't have enough money to get more: Never True Transportation Answer Date Recorded In the past 12 months, has l ack of transportation kept you from medical appts, meetings, work or from getting things needed for daily living? No 06/26/2023 Utilities Answer Date Recorded In the past 12 months, has t he electric, gas, oil or water company threatened to shut off services in your home? No 06/26/2023 Depression Answer Date Recorded Patient Health Questionnaire-2 Score 0 06/15/2023 Comments Unknown Sex and Gender Information Value Date Recorded Sex Assigned at Female 07/04/2022 10:34 AM EDT Legal Sex Female 10:34 AM EDT Gender Identity Female 07/04/2022 10:34 AM EDT Sexual Orientation Choose not to disclose 2021 10:34 AM EDT documented as of this encounter Plan of Treatment Not on file documented as of this encounter Visit Diagnoses Diagnosis Essential hypertension Unspecified essential hypertension documented in this encounter Additional Health Concerns Assessment Noted Time PHQ-9 Depression Total Score: 0 06/15/20 23 11:13 AM EDT documented as of this encounter Care Teams Fusion Juncture Grinder Relationship Specialty Start Date End Date Nadine Ham MD [address] [place] [phone] PCP - General Family Medicine 07/23/18 documented as of this encounter
--- OUTSIDE RECORDS SUMMARY | 2024-10-29 16:11 | XMS_ITS | Encounter Summary ---
Author Organization [employer] Address [address] [place] [address] [address] [place] [address] Care Team Providers Care Page Makeup System Operator Name Role Phone Nadine Ham MD Primary Care Provide r Encounter Details Date Type Department Care Team (Late st Contact Info) Description 01/18/2023 Abstract [facility] MEDICINE [address] [place] [address] Nadine Ham MD [address] [place] [address] Social History Tobacco Use Types Packs/Day Years Used Date Smoking Tobacco: Never Assessed Comments Unknown Sex and Gender Information Value Date Recorded Sex Assigned at Female 07/04/2022 10:34 AM EDT Legal Sex Female 10:34 AM EDT Gender Identity Female 07/04/2022 10:34 AM EDT Sexual Orientation Choose not to disclose 2021 10:34 AM EDT documented as of this encounter Plan of Treatment Not on file documented as of this encounter Procedures Procedure Name Priority Date/Time Associated Diagnosis Comments COLPOSCOPY Routine 11/16/2021 12:00 AM EDT COLONOSCOPY Routine 10/07/2019 documented in this encounter Results * Colposcopy (11/16/2021 12:00 AM EDT) us Historical Provider IN CLINIC/BEDSIDE ORDERAB LES Final Result * Colonoscopy (10/07/2019) Colonoscopy Normal Normal 10/07/2019 Narrative Maricel Gaytan - 10/07/2019 11:48 AM EST Recommended 10 year follow up( [facility] ) Historical Provider HEALTH MAINTENANCE Final Result documented in this encounter Visit Diagnoses Not on filedocumented in this encounter Care Teams Page Makeup System Operator Relationship Specialty Start Date End Date Nadine Ham MD [address] [place] [id number] PCP - General Family Medicine 07/23/18 documented as of this encounter
--- OUTSIDE RECORDS SUMMARY | 2024-10-29 16:11 | XMS_ITS | Encounter Summary ---
Author Organization [employer] Address [address] [facility] 7[address] [place] [address] Care Team Providers Care Silo Worker Name Role Phone Nadine Ham MD Primary Care Provide r Reason for Visit * Reason Comments Med Refill Encounter Details Date Type Department Care Team (Late st Contact Info) Description 10/15/2023 Refill [facility] MED[facility]INE [address] [place] [address] Emile Roldan MD [address] [place], [place] [phone] Type 2 diabetes mellitus without complication, unspecified whether neck pinner insulin use ([facility]) Social History Tobacco Use Types Packs/Day Years Used Date Smoking Tobacco: Never Passive Smoke Exposure: Never Smokeless Tobacco: Never Depression Answer Date Recorded Patient Health Questionnaire-9 Score 0 06/15/2023 Housing Stability Answer Date Recorded What is your housing situation today? I have eben bassam 06/26/[address] you li [...] as of this encounter Visit Diagnoses Diagnosis Type 2 diabetes mellitus without complication, unspecified whether senior living insulin use ([facility]) documented in this encounter Additional Health Concerns Assessment Noted Time PHQ-9 Depression Total Score: 0 06/15/20 23 11:13 AM EDT documented as of this encounter Care Teams Silo Worker Relationship Specialty Start Date End Date Nadine Ham MD [address] [place] [address] PCP - General Family Medicine 07/23/18 documented as of this encounter
--- OUTSIDE RECORDS SUMMARY | 2024-10-29 16:11 | XMS_ITS | Encounter Summary ---
Author Organization [employer] Address [address] [place] [address] 7[address] [place] [address] Care Team Providers Care Hospital Admissions Officer Name Role Phone Nadine Ham MD Primary Care Provide r Encounter Details Date Type Department Care Team (Late st Contact Info) Description 11/17/2022 Abstract [facility] MEDICINE [address] [place] [address] Nadine Ham MD [address] [place] [address] Social History Tobacco Use Types Packs/Day Years [...] documented as of this encounter Visit Diagnoses Not on filedocumented in this encounter Care Teams Hospital Admissions Officer Relationship Specialty Start Date End Date Nadine Ham MD [address] [place] [address] PCP - General Family Medicine 07/23/18 documented as of this encounter
--- OUTSIDE RECORDS SUMMARY | 2024-10-29 16:11 | XMS_ITS | Encounter Summary ---
Author Organization [employer] Address [address] [facility] [address] [place] [address] Care Team Providers Care Sales Professional Bilingual Name Role Phone Nadine Ham MD Primary Care Provide r Encounter Details Date Type Department Care Team ([facility] st Contact Info) Description 07/13/2023 Orders Only [facility] MEDICINE [address] [place] [address] Nadine Ham MD [address] [place] [address] Social History Tobacco Use Types Packs/Day Years Used Date Smoking Tobacco: Never Smokeless Tobacco: Never Depression Answer Date [...] Diagnoses Not on filedocumented in this encounter Additional Health Concerns Assessment Noted Time PHQ-9 Depression Total Score: 0 06/15/20 23 11:13 AM EDT documented as of this encounter Care Teams Sales Professional Bilingual Relationship Specialty Start Date End Date Nadine Ham MD [address] [place] [address] PCP - General Family Medicine 07/23/18 documented as of this encounter
--- OUTSIDE RECORDS SUMMARY | 2024-10-29 16:11 | XMS_ITS | Encounter Summary ---
Author Organization [employer] Address [address] [facility] [address] [place] [address] Care Team Providers Care Extractor Filler Name Role Phone Nadine Ham MD Primary Care Provide r Reason for Visit * Reason Comments Med Refill Encounter Details Date Type Department Care Team (Late st Contact Info) Description 10/13/2024 Refill [facility] MEDICINE [address] [place] [address] Nadine Ham MD [address] [place], [place] [phone] Type 2 diabetes mellitus without complication, unspecified whether buttermilk drier operator insulin use ([facility]); Essential hypertension Social History Tobacco Use Types [...] 2 diabetes mellitus without complication, unspecified whether alf insulin use ([facility]) Essential hypertension Unspecified essential hypertension documented in this encounter Additional Health Concerns Assessment Noted Time PHQ-9 Depression Total Score: 0 06/15/20 23 11:13 AM EDT documented as of this encounter Care Teams Extractor Filler Relationship Specialty Start Date End Date Nadine Ham MD [address] [place] [address] PCP - General Family Medicine 07/23/18 documented as of this encounter
--- OUTSIDE RECORDS SUMMARY | 2024-10-29 16:11 | XMS_ITS | Encounter Summary ---
Author Organization [employer] Address [address] [facility] [address] [place] [address] Care Team Providers Care Laboratory Sample Carrier Name Role Phone Nadine Ham MD Primary Care Provide r Encounter Details Date Type Department Care Team (Late st Contact Info) Description 02/02/2023 Orders Only [facility] [address] [place] [address] Peace Murphy LPN Social History Tobacco Use Types Packs/Day Years [...] on filedocumented in this encounter Care Teams Laboratory Sample Carrier Relationship Specialty Start Date End Date Nadine Ham MD [address] [place] [phone] PCP - General Family Medicine 07/23/18 documented as of this encounter
--- OUTSIDE RECORDS SUMMARY | 2024-10-29 16:11 | XMS_ITS | Clinical Summary ---
Author Organization [employer] Address [address] [facility] [address] [place] [address] Care Team Providers Care Lining Printer Name Role Phone Nadine Ham MD Primary Care Provide r Allergies No known active allergies Medications Diclofenac Sodium 1 % gelIndications: Other chronic pain APPLY 2 GRAMS TO AFFECTED AREA(S) FOUR TIMES DAILY 100 g 1 09/16/19 23 Active Lidoderm 5 % patch APPLY 1 TO 2 PATCHES TOPICALLY DAILY 12 HOURS ON, 12 HOURS OFF. NEEDED FOR PAIN 08/01/20 22 Active lisinopril 40 MG tablet take 1 tablet by oral route every day 02/08/20 22 Active FREESTYLE LITE test strip TEST BLOOD SUGAR TWICE DAILY 50 strip 11 04/14/20 23 Active TRUEplus Lancets 33G misc TEST BLOOD SUGAR TWICE DAILY 100 each 04/14/20 23 Active FREESTYLE LITE test strip TEST BLOOD SUGAR TWICE DAILY 02/03/20 23 Active TRUEplus Lancets 33G misc TEST BLOOD SUGAR TWICE DAILY 02/03/20 23 Active Cetylpyridinium Chloride (Mouth Rinse) 0.07 % liquidIndicatio ns:Gingivitis Use 5 mL in the mouth or throat Once daily. 500 mL 04/20/20 23 Active fluticasone (Flonase) 50 MCG/ACT nasal spray Administer 1-2 sprays into each nostril in the morning for 14 days. Shake gently. Before first use, prime pump. After use, clean tip and replace cap. 16 g 07/14/20 23 Active glipiZIDE XL (Glucotrol XL) 5 MG 24 hr tablet TAKE 1 TABLET BY MOUTH TWICE DAILY 180 tablet 1 09/12/19 24 Active omeprazole (PriLOSEC) [address] capsuleIndicati ons:Gastroesoph ageal reflux disease, unspecified whether esophagitis present Take 1 capsule (20 mg) by mouth before breakfast and before evening meal. Do not crush or chew. 60 capsule 3 12/12/19 24 Active empagliflozin (Jardiance) 10 MGIndications:T ype 2 diabetes mellitus with hyperglycemia, without long-term current use of insulin ([facility]) Take 1 tablet (10 mg) by mouth in the morning. 30 tablet 11 12/12/19 24 2024 Active lisinopril 40 MG tablet TAKE 1 TABLET BY MOUTH EVERY DAY 90 tablet 3 04/10/20 24 Active semaglutide (Ozempic) 2 MG/1.5ML solution pen-injectorInd ications:Type 2 diabetes mellitus with hyperglycemia, without long-term current use of insulin ([facility]) Inject 0.25 mg under the skin 1 (one) time per week. 1 each 07/23/20 24 Active Additional Information Patient not taking.Reported on 08/15/2024 ferrous sulfate 325 (65 Fe) MG EC tabletIndicatio ns:Iron deficiency anemia, unspecified iron deficiency anemia type Take 1 tablet (325 mg) by mouth every other day. Do not crush, chew, or split. 45 tablet 1 07/23/20 24 Active senna (Senokot) 8.6 MG tablet TAKE 1 TABLET BY MOUTH EVERY DAY AT BEDTIME FOR CONSTIPATION 07/22/20 24 Active omeprazole (PriLOSEC) [address] capsule TAKE 1 CAPSULE BY MOUTH EVERY DAY BEFORE A MEAL 90 capsule 1 10/14/19 25 Active metFORMIN (Glucophage) 1000 MG tabletIndicatio ns:Type 2 diabetes mellitus without complication, 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 use ([facility]) TAKE 1 TABLET BY MOUTH TWICE DAILY IN THE MORNING AND IN THE EVENING WITH MEALS 180 tablet 1 10/14/19 25 Active chlorthalidone (Hygroton) 25 MG tabletIndicatio ns:Essential hypertension TAKE 1 TABLET BY MOUTH EVERY MORNING 90 tablet 1 10/14/19 25 Active Acetaminophen Extra Strength 500 MG tabletIndicatio ns:Tooth infection TAKE 2 TABLETS BY MOUTH EVERY 6 HOURS NEEDED FOR PAIN 30 tablet 10/16/19 25 Active cholecalciferol (Vitamin D-3) 25 MCG tabletIndicatio ns:Type 2 diabetes mellitus with hyperglycemia, without long-term current use of insulin ([facility]) TAKE 1 TABLET BY MOUTH EVERY DAY 60 tablet 10/16/19 25 Active gabapentin (Neurontin) 100 MG capsuleIndicati ons:Fibromyalgi a TAKE 3 CAPSULES BY MOUTH TWICE DAILY 180 capsule 10/16/19 25 Active lidocaine (Lidoderm) 5 % patchIndication s:Pain APPLY 1 TO 2 PATCHES TOPICALLY TO SKIN, LEAVE ON FOR 12 HOURS AND OFF FOR 12 HOURS DIRECTED 60 patch 2 10/16/19 25 Active omeprazole (PriLOSEC) [address] capsule TAKE 1 CAPSULE BY MOUTH DAILY BEFORE A MEAL 01/04/20 23 2024 Discontinued lidocaine (Lidoderm) 5 % patchIndication s:Pain APPLY 1-2 PATCHES TOPICALLY FOR 12 HOURS ON 12 HOURS OFF NEEDED FOR PAIN 60 patch 2 05/09/20 23 2024 Discontinued chlorthalidone (Hygroton) 25 MG tabletIndicatio ns:Essential hypertension Take 1 tablet (25 mg) by mouth in the morning. 90 tablet 3 10/16/19 24 2024 Discontinued omeprazole (PriLOSEC) [address] capsule TAKE 1 CAPSULE BY MOUTH EVERY DAY BEFORE A MEAL 90 capsule 1 04/10/20 24 2024 Discontinued metFORMIN (Glucophage) 1000 MG tabletIndicatio ns:Type 2 diabetes mellitus without complication, unspecified whether nursing home insulin use ([facility]) TAKE 1 TABLET BY MOUTH TWICE DAILY IN THE MORNING AND IN THE EVENING WITH MEALS 180 tablet 1 04/10/20 24 2024 Discontinued Acetaminophen Extra Strength 500 MG tabletIndicatio ns:Tooth infection TAKE 2 TABLETS BY MOUTH EVERY 6 HOURS NEEDED FOR PAIN 30 tablet 06/18/20 24 2024 Discontinued cholecalciferol (Vitamin D-3) 25 MCG (1000 UT) tabletIndicatio ns:Type 2 diabetes mellitus with hyperglycemia, without long-term current use of insulin ([facility]) Take 1 tablet (25 mcg) by mouth Once per day. 60 tablet 1 07/23/20 24 2024 Discontinued gabapentin (Neurontin) 100 MG capsuleIndicati ons:Fibromyalgi a Take 3 capsules (300 mg) by mouth 2 times daily. 60 capsule 2 07/23/20 24 2024 Discontinued Active Problems Problem Noted Date Diagnosed Date Microcytic anemia 03/11/2024 Encounter for screening mamm ogram for malignant neoplasm of breast 12/12/2023 GERD (gastroesophageal reflux disease) Assessment & Plan (12/12/2023 4:35 PM EDT): I advise patient to avoid NSAIDs, spicy and acid food, I advise to eat at the same time every day, I advise to elevate the head of the bed and take medications as prescribe I will increase omeprazole to 20mg BID GI referral today Leukocytosis 12/12/2023 Assessment & Plan (03/12/2024 5:10 PM EDT): In light of persistent anemia and leukocytosis I referred patient to hematology Assessment & Plan (12/12/2023 4:38 PM EDT): Every time she does her blood work she has either and URI or a tooth infection I will repeat it again if is still high I will refer her to hematology Anemia 12/12/2023 Assessment & Plan (12/12/2023 4:37 PM EDT): CBC and iron panel will be check again Iron supplement renewed Pain in left eye 12/12/2023 Palpitations 07/16/2023 Assessment & Plan (07/16/2023 1:53 PM EST): here today EKG NSR, HR 77 QTC 453 No ischemic findings Possibly having episodic arrhythmia -referred yesterday by PCP to cardiology (will need TTE ,holter ,etc..) -CBC,chem,TSH today -alarm signs and symptoms, -advised pt to avoid coffe,te ,energectic drinks,denies smoking Iron (Fe) deficiency anemia 06/15/2023 Subacute cough 06/15/2023 Assessment & Plan (07/16/2023 1:49 PM EST): Normal lung exam -dextromethorpahe , ocean nasal ,flonase x 14 days for possible PORTILLO and postnsal drip per symptoms -alarm signs and symptoms Type 2 diabetes mellitus with hyperglycemia 04/04 Assessment & Plan (07/23/2024 4:34 PM EST): Diabetes is: not controlled - Lab Results Component Value Date HGBA1C 8.1 (A) 07/23/2024 HGBA1C 8.4 (A) 03/11/2024 HGBA1C 8.1 (A) 12/12/2023 - Lab Results Component Value Date MICROALBUR <5.0 05/25/2023 CREATININE 0.91 07/14/2023 -Changes: A1c persistently not at goal I will prescribe for patient today ozempic 0.25mg weekly - Diabetic eye exam:pending - Diabetic foot exam:pending - Continue lifestyle modifications - Continue current medications - Follow up: 3 months Assessment & Plan (03/12/2024 5:10 PM EDT): Diabetes is: not controlled - Lab Results Component Value Date HGBA1C 8.4 (A) 03/11/2024 HGBA1C 8.1 (A) 12/12/2023 HGBA1C 8.7 (A) 04/20/2023 - Lab Results Component Value Date MICROALBUR <5.0 05/25/2023 CREATININE 0.91 07/14/2023 -Changes: c/w current medication I am adding today ozempic 0.25mg weekly - Diabetic eye exam: pending - Diabetic foot exam: pending - Continue lifestyle modifications - Continue current medications - Follow up: 3 months Assessment & Plan (12/12/2023 4:36 PM EDT): Diabetes is: not controlled - Lab Results Component Value Date HGBA1C 8.1 (A) 12/12/2023 HGBA1C 8.7 (A) 04/20/2023 - Lab Results Component Value Date MICROALBUR <5.0 05/25/2023 CREATININE 0.91 07/14/2023 -Changes: Patient tells me she has only being taking her metformin and glipizide once a day I encourage her to be adherent with medications - Diabetic eye exam:up to date - Diabetic foot exam:pending - Continue lifestyle modifications - Continue current medications - Follow up: 3 months Assessment & Plan (04/21/2023 3:47 PM EDT): Lab Results Component Value Date HGBA1C 8.7 (A) 04/20/2023 - Lab Results Component Value Date CREATININE 0.90 11/13/2020 CREATININE 0.90 11/13/2020 - Diabetic eye exam: up to date - Diabetic foot exam: pending - Continue lifestyle modifications - Continue current medications (glipizide, metformin) I advise to take them twice a day (patient was taking them only once a day) I re-initiated her jardiance Knee pain 04/20/2023 Influenza-like symptoms 04/20/2023 Fibromyalgia 04/20/2023 Assessment & Plan (07/23/2024 4:33 PM EST): Patient was educated about multidisciplinary approach for her condition, it was advise cardiovascular exercise, maintain hydration, treat anxiety/depression and take medications as directed I will start gabapentin 100mg BID Gingivitis 04/20/2023 Assessment & Plan (04/21/2023 3:47 PM EDT): I advise to make a dental appointment RONNA Tooth infection 04/20/2023 Essential hypertension 08/10/2022 Assessment & Plan (07/23/2024 4:32 PM EST): - Aerobic exercise to reduce BP. Initial goal of 30 min walk 3-5x/week. Increase as tolerated. - low-sodium diet (goal: <2g/day) and heart healthy diet such as DASH to reduce BP and prevent ASCVD. - Home BP monitoring 1-2 x day with goal of <140/90. - Seek immediate medical attention for chest pain, palpitations, SOB, syncope, or sudden changes in mental status. - Do not change or discontinue current prescriptions without first consulting health care provider Assessment & Plan (03/12/2024 5:08 PM EDT): - Aerobic exercise to reduce BP. Initial goal of 30 min walk 3-5x/week. Increase as tolerated. - low-sodium diet (goal: <2g/day) and heart healthy diet such as DASH to reduce BP and prevent ASCVD. - Home BP monitoring 1-2 x day with goal of <140/90. - Seek immediate medical attention for chest pain, palpitations, SOB, syncope, or sudden changes in mental status. - Do not change or discontinue current prescriptions without first consulting health care provider Assessment & Plan (12/12/2023 4:35 PM EDT): - Aerobic exercise to reduce BP. Initial goal of 30 min walk 3-5x/week. Increase as tolerated. - low-sodium diet (goal: <2g/day) and heart healthy diet such as DASH to reduce BP and prevent ASCVD. - Home BP monitoring 1-2 x day with goal of <140/90. - Seek immediate medical attention for chest pain, palpitations, SOB, syncope, or sudden changes in mental status. - Do not change or discontinue current prescriptions without first consulting health care provider Assessment & Plan (07/16/2023 1:49 PM EST): Slight elevated BP today -to monitor BP and f w PCP Assessment & Plan (04/21/2023 3:46 PM EDT): - Aerobic exercise to reduce BP. Initial goal of 30 min walk 3-5x/week. Increase as tolerated. - low-sodium diet (goal: <2g/day) and heart healthy diet such as DASH to reduce BP and prevent ASCVD. - Home BP monitoring 1-2 x day with goal of <140/90. - Seek immediate medical attention for chest pain, palpitations, SOB, syncope, or sudden changes in mental status. - Do not change or discontinue current prescriptions without first consulting health care provider Chronic kidney disease 08/10/2022 Overactive bladder 08/10/2022 Encounters Date Type Department Care Team Description 10/16/2024 Refill [facility] [address] [place] [id number] Nadine Ham MD Tooth infection; Type 2 diabetes mellitus with hyperglycemia, without long-term current use of insulin ([facility]); Fibromyalgia; Pain 10/13/2024 Refill [facility] [address] [place] [address] Nadine Ham MD Type 2 diabetes mellitus without complication, 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 use ([facility]); Essential hypertension 09/26/2024 2:00 PM EST Office Visit [facility] [address] [place] [address] Santy Cuencan, OD Presbyopia (Primary Dx) 08/20/2024 Telephone [facility] [address] [place] [address] Nadine Ham MD Med Refill 08/15/2024 9:30 AM EST Office Visit [facility] [address] [place] [address] Santy Cuencan, OD Diabetes type 2, no ocular involvement ([facility]) (Primary Dx); RPE mottling of macula; Combined forms of age-related cataract of both eyes; Dry eyes; Presbyopia 08/15/2024 Travel 08/07/2024 Orders Only GENERIC EXTERNAL DATA DEPARTMENT Provider, Generic External Data 08/05/2024 Telephone [facility] [address] [place] [address] Nadine Ham MD Prior Authorization (LUZ [place]o) from Last 3 Months Immunizations Name Administration Dates Next Due Influenza injectable quadriv alent IIV4 with preservative 07/25/2019 Pneumococcal Conjugate PCV 20 12/12/2023 Family History Medical History Relation Name Comments No Known Problems Brother No Known Problems Father No Known Problems Father's Brother No Known Problems Father's Sister No Known Problems Maternal Grandfather No Known Problems Maternal Grandmother No Known Problems Mother No Known Problems Mother's Brother No Known Problems Mother's Sister No Known Problems Other No Known Problems Paternal Grandfather No Known Problems Paternal Grandmother No Known Problems Sister Relation Name Status Comments Brother Father Father's Brother Father's Sister Maternal Grandfather Maternal Grandmother Mother Mother's Brother Mother's Sister Other Paternal Grandfather Paternal Grandmother Sister Social History Tobacco Use Types Packs/Day Years Used Date Smoking Tobacco: Never Passive Smoke Exposure: Never Smokeless Tobacco: Never Tobacco Cessation:Counseling Given: Not Answered Depression Answer Date Recorded Patient Health Questionnaire-9 [...] not to disclose 2021 10:34 AM EDT Last Filed Vital Signs Vital Sign Reading Time Taken Comments Blood Pressure 136/79 07/23/2024 3:25 PM EST Pulse 73 07/23/2024 3:25 PM EST Temperature 36.1 ??C (97 ??F) 07/23/2024 3:25 PM EST Respiratory Rate 18 07/23/2024 3:25 PM EST Oxygen Saturation 98% 07/23/2024 3:25 PM EST Inhaled Oxygen Concentration - - Weight 98.9 kg (218 lb) 07/23/2024 3:25 PM EST Height 157.5 cm (5' 2 ) 07/23/2024 3:25 PM EST Body Mass Index 39.87 07/23/2024 3:25 PM EST Plan of Treatment Health Maintenance Due Date Last Done Comments CT Colonography 1969 Dental Prophylaxis 1969 FIT DNA/Cologuard 1969 FIT 1970 FOBT 1970 HIV Screening 1970 Sigmoidoscopy 1969 Diabetes: Foot Exam 12/03/1979 Alcohol/Substance Use Screening 1981 Hepatitis C Screening 12/03/1987 DTaP/Tdap/Td Vaccines (1 - Tdap) 1988 Hepatitis B Vaccines (1 of 3 - 19+ 3-dose series) 1988 Zoster Vaccines (1 of 2) 12/03/2019 Dental Oral Exam 11/16/2023 05/17/2023 Cervical Cancer Screening 03/03/2024 HPV/Cotest 03/03/2024 02/01/2023, 07/07, 08/03/2021, Additional history exists Pap Smear 03/03/2024 02/01/2023, 08/03/2021 COVID-19 Vaccine ( season) 2024 08/18/2021, 07/28/2021 Influenza Vaccine (#1) 2024 07/25/2019 Dental X-Ray: Bitewings 05/18/2024 05/17/2023 Diabetes: Urine Protein Screening 05/25/2024 05/25/2023 Lipid Panel 05/25/2024 05/25/2023, 11/08/2021 Depression Screening 06/15/2024 06/15/2023, 06/15/20 23 SDOH Screening 06/15/2024 06/15/2023 Diabetes: Hemoglobin A1C 10/23/2024 024, 03/11/2024, 12/12/2023, Additional history exists Mammogram 03/14/2025 03/14/2024, 06/04, 10/09/2018 Tobacco Screening 08/16/2025 08/16/2024 Dental X-Ray: Full Mouth 05/18/2026 05/17/2023 Eye Exam 08/15/2026 08/15/2024, 08/04, 08/15/2024, Additional history exists Colonoscopy 10/07/2029 10/07/2019 Colorectal Cancer Screening 10/07/2029 RSV Patients and Patients Aged 60 years or older (1 - 1-dose 75+ series) 2044 Pneumococcal Vaccine: 50+ Years Completed 12/12/2023 HIB Vaccines Aged Out No longer eligi ble based on patient's age to complete this topic HPV Vaccines Aged Out No longer eligi ble based on patient's age to complete this topic Hepatitis A Vaccines Aged Out No long er eligible based on patient's age to complete this topic IPV Vaccines Aged Out No longer eligi ble based on patient's age to complete this topic Meningococcal Vaccine Aged Out No jonas michael eligible based on patient's age to complete this topic RSV under 20 months Aged Out No longe r eligible based on patient's age to complete this topic Rotavirus Vaccines Aged Out No longer eligible based on patient's age to complete this topic Procedures Procedure Name Priority Date/Time Associated Diagnosis Comments OCT, RETINA - OU - BOTH EYES Routine 08/15/2024 9:30 AM EST RPE mottling of macula HEMATOXYLIN AND EOSIN STAIN Routine 08/07/2024 4:28 PM EST POCT GLYCATED HEMOGLOBIN, TOTAL Routine 07/23/2024 3:29 PM EST Type 2 diabetes mellitus with hyperglycemia, without long-term current use of insulin ([facility]) BI MAMMOGRAM SCREENING TOMOSYNTHESIS BILATERAL Routine 03/14/2024 2:36 PM EDT Encounter for screening mammogram for malignant neoplasm of breast ALBUMIN, RANDOM URINE W/CREATININE Routine 05/25/2023 2:46 PM EDT LIPID PANEL, STANDARD Routine 05/25/2023 2:46 PM EDT Type 2 diabetes mellitus with hyperglycemia, without long-term current use of insulin ([facility]) INTRAORAL - COMPLETE SERIES OF RADIOGRAPHIC IMAGES Routine 05/17/2023 2:00 PM EDT Periodontal disease Halitosis Encounter for dental examination Dental abscess Dental caries COMPREHENSIVE ORAL EVALUATION - NEW OR ESTABLISHED PATIENT Routine 05/17/2023 2:00 PM EDT Periodontal disease Halitosis Encounter for dental examination Dental abscess Dental caries HPV MRNA E6/E7 REFLEX TO HPV 16, 18/45 Routine 02/01/2023 3:18 PM EDT PAP SMEAR Routine 02/01/2023 3:18 PM EDT HM COLONOSCOPY Routine 10/07/2019 from Last 3 Months or Most Recently Relevant to Health Maintenance Results * OCT, Retina - OU - Both Eyes (08/15/2024 9:30 AM EST) Liliana Alegria, OD - 08/19/2024 12:48 PM EST OCT MACULA INTERPRETATION Optical Coherence Tomography Interpretation Report Measurements: OD ??OS Macula Thickness ??203 microns ??206 microns Test findings: OD: normal foveal contour, no cystoid macular edema (CME), small area of retinal pigment epithelium (RPE) mottling just temporal to fovea, no subretinal fluid (SRF) OS: normal foveal contour, no cystoid macular edema (CME), no retinal pigment epithelium (RPE) disruption, no subretinal fluid (SRF) Impression and Plan: Not visually significant. No treatment necessary. Will monitor at next exam. us Liliana Cuenca OD OPHTH TOMOGRAPHY Edited * Hematoxylin and Eosin Stain (08/07/2024 4:28 PM EST) 08/07/2024 4:28 PM EST 08/08/2024 6:28 AM EST [facility] - 08/09/2024 4:50 PM EST ----- ------- Name: Adeola De La Fuente ? Age/Sex: 53/F ? : 1970 Unit#: [id number] ?? Attend Dr: Murali Leon MD ?Re08/07/24 ?Status: DEP REF ? Location: HO.LNP ?Disch: ? ----- ------- SPEC : [id number] ? RECD: 08/08/24 ? STATUS: ??SOUT ? REQ NUM: [id number] ? MIROSLAVA: 08/07/24 ? SUBM DR: Murali Leon MD ? ENTERED: ??08/08/24 ?SP TYPE: Surgical ? OTHR DR: Nadine Ham MD ? ORDERED: ??HE Stain/2, Gross Micro L4 ? Diagnosis ?? Endocervix, curettage: ??Fragments of squamous epithelium within normal limits; no ?? endocervical epithelium present. ?Clinical History Ascus with positive HPV ?Microscopic Description Microscopic sections reviewed. ? Material Received ?? ECC ? Gross Description Received in formalin labeled ?ECC? is a 0.6 x 0.6 x 0.2 cm aggregate of clear mucus and minute shards of rodriguez-rhodes tissue, submitted in toto in a cassette labeled A. CEDS Copies To: ?? Nadine Ham MD ?? [facility] ?? [address] ?? [place] [address] ?? [phone] ?? Murali Leon MD ?? [facility] ?? [address] ?? [place] [address] ?? [phone] ----- ------- Signed (signature on file) Hernandez Piña MD 08/09/24 2060 ? ----- ------- ? END OF REPORT ? us Generic External Data Provider LAB BLOOD ORDERAB LES Final Result [facility] [address] [place] [address] [phone] * (ABNORMAL) POCT HGB A1C (07/23/2024 3:29 PM EST) Hemoglobin A1C 8.1(A) 4.0 - 6.0 % QC Media Lot # [id number] Lot# Expiration Date [id number] Blood 07/23/2024 3:29 PM EST us Nadine Castellano MD POINT OF CARE TEST EN TER/EDIT ORDERABLES Final Result * BI Mammogram Screening Tomosynthesis Bilateral (03/14/2024 2:36 PM EDT) Anatomical Region Laterality Modality Breast Bilateral Mammography 03/14/2024 2:36 PM EDT Narrative 04/09/2024 8:56 AM EDT ? [facility] [place] ? [address] ?[place] [address] ? Mammography Report ? Signed ? Patient: Adeola De La Fuente ?M ?? R#: [id number] ? : 1970 ?Acct:[id number] ? Age/Sex: 53 / F ?ADM Date: 03/14/24 ? Loc: HO.MAMMO ? Attending Dr: Nadine Castellano MD ? Ordering Physician: Nadine Ham MD ?Results: ?? 2Benign Findings ? Date of Service: 03/14/24 ?Follow Up: 1 Year From Orig ?? inal Mammogram ? Procedure(s): MM tomosynthesis screening BI ?? Accession Number(s): [id number] ? cc: Nadine Ham MD ? EXAMINATION: ?? MM SCREENING DIGITAL BREAST TOMOSYNTHESIS, BILATERAL ? CLINICAL INFORMATION: ? Screening. Asymptomatic. ? COMPARISON: ?? Mammography: This study is compared with prior exams dating back to ?? 2020. ? TECHNIQUE: ?? Digital breast tomosynthesis is performed in both the craniocaudal and ?? mediolateral oblique views along with computer-aided detection (CAD). ?? Synthesized 2D images are generated from the tomosynthesis. ? FINDINGS: ?? The breasts are heterogeneously dense, which may obscure small masses ?? (ACR BI-RADS breast composition Category c). ? There are no significant masses, abnormal calcifications, or other ?? abnormalities. ? Scattered benign calcifications are present in each breast. ? MM/MM tomosynthesis screening BI ?? IMPRESSION: ?? No mammographic evidence of malignancy. ? ASSESSMENT: ? BI-RADS BI-RADS 2 - Benign Findings ? RECOMMENDATION: ?? Routine annual mammography screening. ? 1 year F/U ? This examination should not preclude the clinical evaluation of a ?? suspicious palpable abnormality. ? This patient's information was entered into a reminder system with a ?? target due date for their next mammogram. ? Dictated By: ?Virginia Lau MD ? Signed By: ?<Electronically signed by Virginia Lau MD in OV> ? 04/09/24 0852 ? DD/ 1436 ? TD/TT: ? Shank Stapler: ? Procedure Note Tayter, Image - 04/09/2024 [facility] [address] [place] [address] [place] [address] Mammography Report Signed Patient: Gonzalo De La Fuente R#: [id number] : 1970Acct:[id number] Age/Sex: 53 / FADM Date: 03/14/24 Loc: HO.MAMMO Attending Dr: Nadine Castellano MD Ordering Physician: Barciona Castellano,Nadine MDResults: 2Benign Findings Date of Service: 03/14/24Follow Up: 1 Year From [facility] Mammogram Procedure(s): MM tomosynthesis screening BI Accession Number(s): [id number] cc: Nadine Ham MD EXAMINATION: MM SCREENING DIGITAL BREAST TOMOSYNTHESIS, BILATERAL CLINICAL INFORMATION: Screening. Asymptomatic. COMPARISON: Mammography: This study is compared with prior exams dating back to 2020. TECHNIQUE: Digital breast tomosynthesis is performed in both the craniocaudal and mediolateral oblique views along with computer-aided detection (CAD). Synthesized 2D images are generated from the tomosynthesis. FINDINGS: The breasts are heterogeneously dense, which may obscure small masses (ACR BI-RADS breast composition Category c). There are no significant masses, abnormal calcifications, or other abnormalities. Scattered benign calcifications are present in each breast. MM/MM tomosynthesis screening BI IMPRESSION: No mammographic evidence of malignancy. ASSESSMENT: BI-RADS BI-RADS 2 - Benign Findings RECOMMENDATION: Routine annual mammography screening. 1 year F/U This examination should not preclude the clinical evaluation of a suspicious palpable abnormality. This patient's information was entered into a reminder system with a target due date for their next mammogram. Dictated By: Virginia Lau MD Signed By: <Electronically signed by Virginia Lau MD in OV> 04/09/24 0852 DD/ 1436 TD/TT: Shank Stapler: us Nadine Castellano MD IMG BI PROCEDURES Fin al Result * Albumin, Random Urine W/Creatinine (05/25/2023 2:46 PM EDT) Creatinine, Urine 47.65 mg/dL [facility] Microalbumin Urine <5.0 mg/L [facility] Microalbum Creatinine Ratio Ur TNP <30 ug/mg cr [facility] Comment:Unable to calculate albumin/creatinine ratio due to lowmicroalbumin or creatinine result. 05/25/2023 2:46 PM EDT 05/25/2023 4:31 PM EDT us Nadine Castellano MD LAB URINE ORDERABLES Final Result Performing Organization Address [facility]/ZIP Co de Phone Number [facility] [address] [place] [address] [phone] * Lipid Panel, Standard (05/25/2023 2:46 PM EDT) Triglycerides 135 <150 mg/dL [facility] Comment:Desirable Triglyceri de: less than 150 mg/dLBorderline High Triglyceride 150-199 mg/dLHigh Triglyceride: 200-499 mg/dLVery High Triglyceride: greater than or equal to 5OO mg/dL Cholesterol 162 <200 mg/dL [facility] Comment:Desirable Cholestero l: less than 200 mg/dLBorderline High Cholesterol: 200-239 mg/dLHigh Cholesterol: greater than 239 mg/dL LDL Cholesterol Calculated 84 <100 mg/dL [facility] Comment:Desirable LDL: less than 100 mg/dLNear Optimal/Above Optimal LDL: 110- 129 mg/dLBorderline High LDL: 130-159 mg/dLHigh LDL: 160-189 mg/dLVery High LDL: greater than or equal to 190 mg/dL HDL Cholesterol 51 >40 mg/dL [facility] Comment:Desirable HDL: great er than 40 mg/dL Note: This HDL assay may give artificially low results in patients with liver disease. Blood Venous blood specimen / Unknown 05/25/2023 2:46 PM EDT 05/25/2023 4:08 PM EDT us Nadine Castellano MD LAB BLOOD ORDERABLES Final Result Performing Organization Address [facility]/ZIP Co de Phone Number [facility] [address] [place] [address] [phone] * (ABNORMAL) HPV mRNA E6/E7 w/Reflex to HPV Genotypes 16, 18/45 (02/01/2023 3:18 PM EDT) HPV nRNA E6/E7 Detected(A ) Not Detected [facility] Comment:Methodology: Transcr iption-Mediated AmplificationThis assay detects E6/E7 viral messenger RNA (mRNA) from 14high-risk HPV types (16,18,31,33,35,39,45,51,52,56,58,59,66,68).Cervical sources are required for HPV testing.If a vaginal source from a patient who has had atotal hysterectomy with removal of cervix wassubmitted, please contact the testing laboratoryfor alternative testing options.For additional information, please refer tohttp://education.[employer]/faq/NIN432c8(This link if provided for information/educational purposes only.)THIS TEST WAS PERFORMED AT:[facility] [address] [phone] STAUFFER MD HPV 16 RNA NOT DETECTED NOT DETECTED [facility] HPV 18/45 RNA NOT DETECTED NOT DETECTED [facility] Comment:Methodology: Transcr iption Mediated AmplificationCervical sources are required for HPV testing.If a vaginal source from a patient who has had atotal hysterectomy with removal of cervix wassubmitted, please contact the testing laboratoryfor alternative testing options.THIS TEST WAS PERFORMED AT:[employer] [place] [phone] STAUFFER MD 02/01/2023 3:18 PM EDT 02/02/2023 8:30 AM EDT [facility] External Provider LAB CYT OLOGY ORDERABLES Final Result [facility] [address] [place] [phone] * Pap Smear (02/01/2023 3:18 PM EDT) 02/01/2023 3:18 PM EDT 02/02/2023 8:30 AM EDT Narrative [facility] - 02/22/2023 6:19 PM EDT ----- ------- Name: Adeola De La Fuente ? Age/Sex: 52/F ? : 1970 Unit#: [id number] ?? Attend Dr: Murali Leon MD ?Re02/01/23 ?Status: DEP REF ? Location: HO.LNP ?Disch: ? ----- ------- SPEC : [id number] ? RECD: 02/02/23 ? STATUS: ??SOUT ? REQ NUM: [id number] ? MIROSLAVA: 02/01/23 ? SUBM DR: Murali Leon MD ? ENTERED: ??02/02/23 ?SP TYPE: Pap Smr ?OTHR DR: Nadine Ham MD ? ORDERED: ??Pap Smear ? Interpretation ?? General Category: ?? Epithelial cell abnormality. ?? Adequacy: ?Endocervical component absent. ?? Interpretation: ?Atypical squamous cells of undetermined significance. ?Parakeratosis. ?Coccobacilli consistent with shift in vaginal esteban. ? HPV mRNA E6/E7: ?DETECTED ? This assay detects E6/E7 viral messenger RNA (mRNA) from 14 high-risk HPV types (16, 18, ?? 31, 33, 35, 39, 45, 51, 52, 56, 58, 59, 66, 68) ? HPV Type 16 RNA: ?Not Detected ?? HPV Type 18/45 RNA: ? Not Detected ? HPV testing performed by [facility], [place], [place]. ??See reference laboratory ?? portion of the EMR for entire report. ?Clinical Information LMP: Postmenopausal Previous PAP test: 2020, MANISHA I ? Material Received ?? ThinPrep-Cervical Copies To: ?? Nadine Ham MD ?? [address] [facility] ?? [place] [address] ?? [phone] ?? Murali Leon MD ?? [address] ?? [place] [address] ?? [phone] ----- ------- Signed (signature on file) Teresa Denver 02/22/231818 ? ----- ------- ? END OF REPORT ? [facility] External Provider LAB [facility] ORDERABLES Final Result [facility] [address] [place] [address] [phone] * Colonoscopy (10/07/2019) Colonoscopy Normal Normal 10/07/2019 Narrative Maricel Gaytan - 10/07/2019 11:48 AM EST Recommended 10 year follow up( [facility] ) Historical Provider HEALTH MAINTENANCE Final Result from Last 3 Months or Most Recently Relevant to Health Maintenance Insurance [facility] [place] AD[place] Care Teams Lining Printer Relationship Specialty Start Date End Date Nadine Ham MD [address] [place] [address] PCP - General Family Medicine 07/23/18
--- OUTSIDE RECORDS SUMMARY | 2024-10-29 16:11 | XMS_ITS | Encounter Summary ---
Author Organization [employer] Address [address] [facility] 7t [place] [address] Care Team Providers Care Cleaning Crew Member Name Role Phone Nadine Ham MD Primary Care Provide r Encounter Details Date Type Department Care Team (Late st Contact Info) Description 04/14/2023 Orders Only [facility] & PEDS [address] [place] [address] Peace Murphy LPN Social History Tobacco Use [...] on filedocumented in this encounter Care Teams Cleaning Crew Member Relationship Specialty Start Date End Date Nadine Ham MD [address] [place] [phone] PCP - General Family Medicine 07/23/18 documented as of this encounter
--- OUTSIDE RECORDS SUMMARY | 2024-10-29 16:11 | XMS_ITS | Encounter Summary ---
Author Organization [employer] Address [address] [facility] 7[address] [place] [address] Care Team Providers Care Payroll Tax Specialist Name Role Phone Nadine Ham MD Primary Care Provide r Reason for Visit * Reason Onset Date Comments Appointment Request 11/27/2023 Encounter Details Date Type Department Care Team ([facility] st Contact Info) Description 11/27/2023 Telephone [facility] [address] [place] [address] Nadine Ham MD [address] [place], [place] [phone] Appointment Request Social History Tobacco Use Types Packs/Day Years [...] AM EDT documented as of this encounter Miscellaneous Notes * Telephone Encounter - Kam Plummer - 11/27/2023 4:05 PM EDT Tc from patient calling to reschedule follow up appt from 08/21 documented in this encounter Plan of Treatment Not on file documented as of this encounter Visit Diagnoses Not on filedocumented in this encounter Additional Health Concerns Assessment Noted Time PHQ-9 Depression Total Score: 0 06/15/20 23 11:13 AM EDT documented as of this encounter Care Teams Payroll Tax Specialist Relationship Specialty Start Date End Date Nadine Ham MD [address] [place] [address] PCP - General Family Medicine 07/23/18 documented as of this encounter
--- OUTSIDE RECORDS SUMMARY | 2024-10-29 16:11 | XMS_ITS | Encounter Summary ---
Author Organization [employer] Address [address] [facility] [address] [place] [address] Care Team Providers Care Assistant Executive Housekeeper Name Role Phone Nadine Ham MD Primary Care Provide r Reason for Visit * Reason Comments Med Refill Encounter Details Date Type Department Care Team (Late st Contact Info) Description 10/16/2024 Refill [facility] [address] [place] [address] Nadine Ham MD [address] [place], [place] [phone] Tooth infection; Type 2 diabetes mellitus with hyperglycemia, without long-term current use of insulin ([facility]); Fibromyalgia; Pain Social History Tobacco Use Types Packs/Day Years Used Date Smoking Tobacco: Never Passive Smoke Exposure: Never Smokeless Tobacco: Never Depression Answer Date Recorded Patient Health Questionnaire-9 Score 0 06/15/2023 Housing Stability Answer Date Recorded What is your housing situation today? I have ebencrystal banegas 06/26/[address] you [...] as of this encounter Visit Diagnoses Diagnosis Tooth infection Acute apical periodontitis of pulpal origin Type 2 diabetes mellitus with hyperglycemia, without long-term current use of insulin ([facility]) Fibromyalgia Unspecified myalgia and myositis Pain Generalized pain documented in this encounter Additional Health Concerns Assessment Noted Time PHQ-9 Depression Total Score: 0 06/15/20 23 11:13 AM EDT documented as of this encounter Care Teams Assistant Executive Housekeeper Relationship Specialty Start Date End Date Nadine Ham MD [address] [place] [phone] PCP - General Family Medicine 07/23/18 documented as of this encounter
--- OUTSIDE RECORDS SUMMARY | 2024-10-29 16:11 | XMS_ITS | Encounter Summary ---
Author Organization [employer] Address [address] [place] [address] [address] [address] Care Team Providers Care Data Entry Clerk Name Role Phone Nadine Ham MD Primary Care Provide r Encounter Details Date Type Department Care Team (Late st Contact Info) Description 10/19/2022 Telephone [facility] [address] [place], [place] [phone] Nadine Ham MD [address] [place] [address] Social History Tobacco Use Types Packs/Day Years Used Date Smoking Tobacco: Never Assessed Comments Unknown Sex and Gender Information Value Date Recorded Sex Assigned at Female 07/04/2022 10:34 AM EDT Legal Sex Female 10:34 AM EDT Gender Identity Female 07/04/2022 10:34 AM EDT Sexual Orientation Choose not to disclose 2021 10:34 AM EDT documented as of this encounter Plan of Treatment Scheduled Orders Name Type Priority Associated Diagnoses Orde r Schedule OUTSIDE PROCEDURE SCAN Procedures Or dered: 10/19/2022 documented as of this encounter Visit Diagnoses Not on filedocumented in this encounter Care Teams Data Entry Clerk Relationship Specialty Start Date End Date Nadine Ham MD [address] [place] [address] PCP - General Family Medicine 07/23/18 documented as of this encounter
--- OUTSIDE RECORDS SUMMARY | 2024-10-29 16:11 | XMS_ITS | Encounter Summary ---
Author Organization [employer] Address [address] [facility] [address] [place] [address] Care Team Providers Care Pin Sorter And Bagger Name Role Phone Nadine Ham MD Primary Care Provide r Encounter Details Date Type Department Care Team ([facility] st Contact Info) Description 07/25/2024 Orders Only [facility] [address] [place] [address] Nadine Ham MD [address] [place] [address] Social History Tobacco Use Types Packs/Day Years [...] documented as of this encounter Care Teams Pin Sorter And Bagger Relationship Specialty Start Date End Date Nadine Ham MD [address] [place] [phone] PCP - General Family Medicine 07/23/18 documented as of this encounter
--- OUTSIDE RECORDS SUMMARY | 2024-10-29 16:11 | XMS_ITS | Encounter Summary ---
Author Organization [employer] Address [address] [facility] [address] [place] [address] Care Team Providers Care Manager Loss Prevention Name Role Phone Nadine Ham MD Primary Care Provide r Encounter Details Date Type Department Care Team (Late st Contact Info) Description 01/18/2023 Orders Only [facility] [address] [place] [address] Valarie Dee RN [address] [place] [address] Social History Tobacco Use Types Packs/Day Years [...] Procedure Name Priority Date/Time Associated Diagnosis Comments HM PAP/HPV Routine 08/03/2021 12:00 AM EST documented in this encounter Results * Hm Pap Smear (08/03/2021 12:00 AM EST) us Historical Provider HEALTH MAINTENANCE Final Result [facility] [address] [place] [phone] [phone] documented in this encounter Visit Diagnoses Not on filedocumented in this encounter Care Teams Manager Loss Prevention Relationship Specialty Start Date End Date Nadine Ham MD [address] [place] [address] PCP - General Family Medicine 07/23/18 documented as of this encounter
--- OUTSIDE RECORDS SUMMARY | 2024-10-29 16:11 | XMS_ITS | Encounter Summary ---
Author Organization [employer] Address [address] [facility] 7t [place] [address] Care Team Providers Care Optical Technician Name Role Phone Nadine Ham MD Primary Care Provide r Encounter Details Date Type Department Care Team (Late st Contact Info) Description 10/03/2022 Orders Only [facility] [address] [place] [address] Peace Murphy LPN Social History Tobacco Use [...] on filedocumented in this encounter Care Teams Optical Technician Relationship Specialty Start Date End Date Nadine Ham MD [address] [place] [phone] PCP - General Family Medicine 07/23/18 documented as of this encounter
--- OUTSIDE RECORDS SUMMARY | 2024-10-29 16:11 | XMS_ITS | Encounter Summary ---
Author Organization [employer] Address [address] [place] [address] 7[address] [place] [address] Care Team Providers Care Immunologist Name Role Phone Nadine Ham MD Primary Care Provide r Encounter Details Date Type Department Care Team (Late st Contact Info) Description 03/24/2023 Orders Only [facility] [address] [place] [address] Jessica Groves LPN Social History Tobacco Use Types Packs/Day [...] on filedocumented in this encounter Care Teams Immunologist Relationship Specialty Start Date End Date Nadine Ham MD [address] [place] [address] PCP - General Family Medicine 07/23/18 documented as of this encounter
[2024-10-29 16:12] LABS: MANUAL DIFF FLAG NO
[2024-10-29 16:17] LABS: Basophils Absolute Auto 0.1 X10*3/uL (0.0-0.2); Eosinophils Absolute Auto 0.3 X10*3/uL (0.0-0.4); Eosinophils Percent Auto 2.1 % (0-4); Hematocrit 37.1 % (37.0-47.0); Hemoglobin 11.6 g/dl (12.0-16.0); Imm Gran Abs Auto 0.04 X10*3/uL (0.00-0.03); Imm Gran Pct Auto 0.3 % (0.0-0.4); Lymphocytes Absolute Auto 4.3 X10*3/uL (1.2-4.9); Lymphocytes Percent Auto 35.6 % (20-40); Mean Corpuscular HGB Conc 31.3 g/dl (31.0-35.0); Mean Corpuscular Hemoglobin 24.7 pg (27.0-33.0); Mean Corpuscular Volume 79.1 fL (80.0-98.0); Mean Platelet Volume 11.6 fL (9.4-12.3); Monocytes Absolute Auto 0.8 X10*3/uL (0.1-1.2); Neutrophils Absolute Auto 6.4 x10*3/uL (2.0-8.3); Platelet Count 392 X10*3/uL (160-400); Red Blood Count 4.69 X10*6/uL (4.20-5.50); Red Cell Distribution Width 15.5 % (11.0-16.0)
[2024-10-29 16:50] LABS: Creatinine Urine 88.15 mg/dL; Microalbum/Creatinine Ratio Ur 5.6 ug/mg cr (<30)
[2024-10-29 17:10] LABS: Alanine Aminotransferase 39 U/L (0-31); Albumin Level 4.2 g/dL (3.5-5.0); Alkaline Phosphatase 139 U/L (39-117); Anion Gap 12 (12-20); Aspartate Amino Transferase 22 U/L (5-31); Bilirubin Total 0.2 mg/dL (0.0-1.0); Blood Urea Nitrogen 15 mg/dL (9-16); Calcium 9.7 mg/dL (8.4-10.2); Carbon Dioxide 26 mmol/L (22-29); Chloride 105 mmol/L (96-108); Cholesterol 172 mg/dL (<200); Estimated Glomerular Filt Rate > 60; Glucose Random 227 mg/dL (60-115); HDL Cholesterol 56 mg/dL (>40); LDL Cholesterol Calculated 80 mg/dL (<100); Potassium 3.9 mmol/L (3.3-5.1); Sodium 139 mmol/L (135-145); Total Protein 8.3 g/dL (6.5-8.0); Triglycerides 181 mg/dL (<150)
== END 2024-10-29 13:14 | disposition home or self-care (01) ==
LOC: HO.HHCL 13:13
PROVIDERS: Internal Medicine Medical Oncology; Visit Provider Internal Medicine
DX: E11.65 Type 2 diabetes mellitus with hyperglycemia (principal); D64.9 Anemia, unspecified
CPT/HCPCS: 36415; 80053; 80061; 82043; 82570; 85025

== ENCOUNTER 2024-12-02 07:27 | Emergency (ER) | payer MEDICAID, SELFPAY ==
--- NOTE | ~2024-12-02 | XR_ITS ---
EXAMINATION: XR CHEST CLINICAL INFORMATION: cough COMPARISON: January 21, 2020. TECHNIQUE: Frontal view of the chest was obtained. FINDINGS: No consolidation, pleural effusion or pneumothorax. Cardiomediastinal silhouette size is normal with a round shaped apex. Prominent ascending thoracic aorta. Multilevel thoracic spondylosis. Degenerative changes in the shoulders. XR/XR chest 1V IMPRESSION: No acute airspace disease. Consider hypertensive cardiomyopathy in the correct clinical settings. Electronically signed by: Sam Garg MD 12/02/2024 08:19 AM EDT
--- NOTE | ~2024-12-02 | CT_ITS ---
EXAMINATION: CT ABDOMEN PELVIS WITH IV CONTRAST HISTORY: LLQ pain, n/v/d COMPARISON: Comparison is made with the prior examination dated 02/10/2022. TECHNIQUE: CT scan of the abdomen and pelvis was performed following administration of 85 mL Omnipaque 350 using standard departmental protocol. Coronal and sagittal reformatted images were generated and reviewed. Oral contrast material was not administered at the request of the referring physician. This CT exam was performed with one or more of the following dose reduction techniques: automated exposure control, adjustment of the mA and/or kV according to patient size, use of iterative reconstruction technique. DLP: 785 mGy-cm FINDINGS: LOWER CHEST: The visualized lung bases are clear. There is no pleural effusion. CARDIOVASCULATURE: The heart is normal in size. There is no pericardial effusion. LIVER: The liver is normal in size and contour. No liver mass is identified. The hepatic and portal veins are patent. GALLBLADDER / BILE DUCTS: The gallbladder is unremarkable. There is no intra or extrahepatic biliary ductal dilatation. SPLEEN: The spleen is normal in size. No focal splenic lesion is identified. PANCREAS: The pancreas is unremarkable in appearance. ADRENAL GLANDS: Within normal limits. KIDNEYS/RETROPERITONEUM: No renal calculi are identified. There is no hydronephrosis. There is a subcentimeter fat attenuation lesion at the upper pole of the left kidney, consistent with a tiny angiomyolipoma. LYMPH NODES: No abdominal or pelvic lymphadenopathy. VASCULATURE: The abdominal aorta demonstrates atherosclerotic calcification, but is normal in caliber. MESENTERY/PERITONEUM: No free fluid. No masses. There is no free intraperitoneal gas. STOMACH: There is a small hiatal hernia. The stomach is collapsed, limiting evaluation. SMALL BOWEL: The small bowel is normal in caliber. COLON: There are scattered diverticuli of the descending colon, without evidence of diverticulitis. APPENDIX: Normal. URINARY BLADDER/PELVIC ORGANS: The urinary bladder is collapsed, limiting evaluation. The uterus and ovaries are unremarkable. BONES / SOFT TISSUES: No suspicious bony or soft tissue abnormalities. CT/CT abdomen pelvis w IV con IMPRESSION: 1. Diverticulosis of the descending colon, without evidence of diverticulitis. 2. Small hiatal hernia. 3. Subcentimeter left renal angiomyolipoma. Electronically signed by: Irvin Maher MD 12/02/2024 11:01 AM EDT RP
[2024-12-02 07:33] VITALS: BP 115/54; BP 130/72; PULSE 80; PULSE 90; RESP 16; TEMP 37; O2SAT 95; O2SAT 97; BMI 36.6
--- NOTE | 2024-12-02 07:39 | ECG_ITS ---
Test Reason : syncope Blood Pressure : */* mmHG Vent. Rate : 84 BPM Atrial Rate : 84 BPM P-R Int : 152 ms QRS Dur : 78 ms QT Int : 412 ms P-R-T Axes : 30 14 12 degrees QTcB Int : 486 ms Normal sinus rhythm Minimal voltage criteria for LVH, may be normal variant ( R in aVL ) Abnormal ECG When compared with ECG of 21-Jan-2019 17:53, T wave inversion now evident in Anterior leads QT has lengthened Referred By: Alondra Munoz Electronically Signed By: JOSE GARCIA
--- NOTE | 2024-12-02 07:53 | ED.URI ---
HPI - URI/Sore Throat General Chief Complaint: Dizziness Stated Complaint: DIZZY,GROIN PAIN Time Seen by Provider: 12/02/24 07:32 Source: patient, EMS and old records reviewed Mode of arrival: EMS Limitations: no limitations History of Present Illness ED Provider: OKBI ONEILL Narrative: 54 yo female with PMH of DM, high risk for cervical cancer followed every 6 months by Carolyn, renal colic, GERD, HTN, HTN, anemia who states for 3 days she has had some nausea/vomiting, subjective fevers, dry cough, runny nose and LLQ pain. She denies urinary symptoms. She has no had known sick contacts or travel. She went to work this AM was standing felt very weak that she might pass out and sat down it did get better. She drank some juice. She has no CP/SOB. MD elicited complaint: fever, cough and rhinorrhea Onset (ago): day(s) (3) Consistency: improved Severity: moderate Description of mucous: clear Able to tolerate fluids by mouth: Yes Exacerbating factors: exertion Relieving factors: rest Associated symptoms: fever, chills, myalgias, rhinorrhea, nasal congestion, cough, abdominal pain, nausea and vomiting Treatments prior to arrival: none Related Data Home Medications ?Medication ?Instructions ?Recorded ?Confirmed blood sugar diagnostic #10 ea 07/29/20 04/04/24 chlorthalidone 25 mg tablet 25 mg PO DAILY 07/29/20 04/04/24 cholecalciferol (vitamin D3) 50 50 mcg PO DAILY 07/29/20 04/04/24 mcg (2,000 unit) tablet glipizide 5 mg tablet, extended 5 mg PO DAILY 07/29/20 04/04/24 release 24 hr metformin 1,000 mg tablet 1,000 mg PO BID 07/29/20 04/04/24 lancets 33 gauge (TRUEplus Lancets) #100 ea 08/03/21 04/04/24 lisinopril 40 mg tablet 40 mg PO DAILY 10/08/21 04/04/24 omeprazole 20 mg capsule,delayed 20 mg PO DAILY 10/08/21 04/04/24 release diclofenac sodium 1 % topical gel 2 g topical QID 01/07/22 04/04/24 empagliflozin 10 mg tablet 10 mg PO QAM 01/23/24 04/04/24 (Jardiance) ferrous sulfate 325 mg (65 mg 325 mg PO Q OTHER DAY 01/23/24 04/04/24 iron) tablet,delayed release Previous Rx's ?Medication ?Instructions ?Recorded hydrocortisone 2.5 % topical cream 1 appl AL BID-QID PRN hemorrhoids 08/01/22 with perineal applicator #30 grams (Anusol-HC) sennosides 8.6 mg tablet (Natural 8.6 mg PO BEDTIME constipation #90 01/23/24 Senna Laxative) tabs Allergies Allergy/AdvReac Type Severity Reaction Status Date / Time No Known Allergies Allergy Verified 12/02/24 07:37 [No Known Allergies*] Review of Systems Review of Systems: Constitutional : pos Fever, pos Chills ENT/Mouth : No sore throat, pos Rhinorrhea Eyes: No Swelling, No Redness Cardiovascular : No Chest Pain, No SOB, NoEdema Respiratory : pos Cough, No Sputum, No Wheezing Gastrointestinal : Positive Nausea, Positive Vomiting, positive Diarrhea, positive abdominal Pain, No Hematochezia, No Melena Genitourinary : No Dysuria, No Urinary Frequency, No Hematuria, No Urgency Musculoskeletal : No joint pain, No Myalgias, No Joint Swelling Skin : No Skin Lesions, No rash Neuro : No Weakness, No Numbness, pos Dizziness, No Headache Psych : No Anxiety/Panic, No Depression All other systems reviewed and are negative. [facility] Past Medical History Attestation statement: The following information was validated with the patient. Source: old records reviewed Medical History Dysplasia of cervix, low grade (MANISHA 1) Hypothyroid GERD (gastroesophageal reflux disease) Urge incontinence HTN (hypertension) Hemorrhoids Diabetes Surgical History Hx of colonoscopy History of Family History Family History Family/Other Breast cancer Maternal Aunt Breast cancer Maternal Aunt Thyroid disease Father HTN (hypertension) Mother Hernia Age related osteoporosis Social History Social History Household Members Other:: daughter Housing: Apartment Alcohol intake: former Patient Tobacco Use Status: Former Tobacco user Advance Directives: No Advance Directives Information Provided: Yes service: No Current occupational status: employed Sexual orientation: Straight/Heterosexual Gender identity: Female Physical Exam Vital Signs: Vital Signs: Last Vital Signs Temp 98.1 F 12/02/24 10:50 Pulse 74 12/02/24 10:50 Resp 14 12/02/24 10:50 BP 96/59 L 12/02/24 10:50 Pulse Ox 94 12/02/24 10:50 O2 Del Method Room Air 12/02/24 10:50 BMI result Body Mass Index 36.6 Appearance: Alert. Oriented X3. No acute distress. Eyes: Pupils equal, round and reactive to light. ENT: Pharynx normal. Neck: Normal inspection. Neck supple. CVS: Normal heart rate and rhythm. Pulses normal. Respiratory: No respiratory distress. Breath sounds normal. Abdomen: Soft and mild ttp in LLQ no rebound or guarding Skin: Skin warm and dry. Normal skin color. Extremities: No lower extremity edema. Neuro: Oriented X 3. No motor deficit. No sensory deficit. CN2-12 intact Course Reevaluation(s) Reevaluation #1: DR. Del Rosario's progress note: 54-year-old female came in with flu-like symptoms, seen initially by Dr. Munoz I assumed care for the patient at 09:[address] and re-evaluate the patient after IV fluids, patient tested positive for flu B, CT of the abdomen was negative for acute diverticulitis or any other pathology. , patient is in room, tolerating p.o. intake, conducting conversation with her family appear in no distress, VSS. Patient was instructed to use face mask, frequent hand wash, self quarantine, and use a social distance. not candidate for Tamiflu since symptoms started more than 72 hours ago.Otherwise will discharge the patient. Time: 12:06 Medications Administered Discontinued Medications Generic Name Dose Route Start Last Admin Trade Name Freq PRN Reason Stop Dose Admin Acetaminophen 1,000 mg in 100 mls @ 400 mls/hr 12/02/24 07:46 12/02/24 10:56 Ofirmev IV 12/02/24 08:00 Infused ONCE ONE Infusion Lactated Ringer's 1,000 mls @ 999 mls/hr 12/02/24 09:55 12/02/24 10:56 Lr IV 12/02/24 10:55 999 mls/hr .Q1H1M ONE Administration Iohexol 100 ml 12/02/24 10:16 12/02/24 10:17 Iohexol 350 Mg/Ml 100 Ml Infus..Btl IV 12/02/24 10:17 85 ml ONCE ONE Administration Ondansetron HCl 4 mg 12/02/24 07:46 12/02/24 08:08 Ondansetron Hcl 4 Mg/2 Ml Vial IVPUSH 12/02/24 07:47 4 mg ONCE ONE Administration Medical Decision Making Medical Decision Making [facility] Narrative: 54 yo female with PMH of DM, high risk for cervical cancer followed every 6 months by Carolyn, renal colic, GERD, HTN, HTN, anemia here with URI symptoms x 3 days and lower abdominal pain with n/v/d no recent travel, procedures. She felt she was going to pass out at work today. No chest pain or dyspnea to suggest ACS or VTE. At this time given complaints will obtain CXR, labs, EKG, CT scan of lower abdomen for mass/diverticular disease, suppoertive medications ordered. Differential Diagnosis Differential Diagnoses: The differential diagnosis associated with the presentation includes viral syndrome, URI, diverticular ds, urinary pathology Admission/Observation Consideration of admission/observation: Escalation of care including admission/observation considered signed out to Dr. Del Rosario pending workup Lab Data [facility] Lab Attestation statement: I reviewed the patient's lab results. 12/02/24 07:59 12/02/24 09:30 Labs: Lab Results 12/02/24 12/02/24 12/02/24 Range/Units 07:59 09:30 09:38 WBC 10.0 (4.8-10.8) X10*3/uL RBC 5.13 (4.20-5.50) X10*6/uL Hgb 12.4 (12.0-16.0) g/dl Hct 40.4 (37.0-47.0) % MCV 78.8 L (80.0-98.0) fL MCH 24.2 L (27.0-33.0) pg MCHC 30.7 L (31.0-35.0) g/dl RDW 15.2 (11.0-16.0) % Plt Count 333 (160-400) X10*3/uL MPV 11.3 (9.4-12.3) fL Immature Gran % (Auto) 0.4 (0.0-0.4) % Neut % (Auto) 71.2 (45-73) % Lymph % (Auto) 20.4 (20-40) % [place] % (Auto) 6.7 (2-11) % Eos % (Auto) 0.9 (0-4) % Baso % (Auto) 0.4 (0-2) % Lymph # (Auto) 2.0 (1.2-4.9) X10*3/uL [place] # (Auto) 0.7 (0.1-1.2) X10*3/uL Eos # (Auto) 0.1 (0.0-0.4) X10*3/uL Baso # (Auto) 0.0 (0.0-0.2) X10*3/uL Abs Immat Gran (auto) 0.04 H (0.00-0.03) X10*3/uL Absolute Neuts (auto) 7.1 (2.0-8.3) x10*3/uL Absolute Nucleated RBC 0.000 (0.0-0.012) X10*3/uL Nucleated RBC % (auto) 0.0 (0.0-0.2) /100WBC Sodium 137 (135-145) mmol/L Potassium 3.7 (3.3-5.1) mmol/L Chloride 102 (96-108) mmol/L Carbon Dioxide 25 (22-29) mmol/L Anion Gap 14 (12-20) BUN 21 H (9-16) mg/dL Creatinine 1.38 (0.5-1.4) mg/dL Estim Creat Clear Calc 51.9 Estimated GFR 40 Random Glucose 281 H (60-115) mg/dL Calcium 9.2 (8.4-10.2) mg/dL Magnesium 1.9 (1.6-2.6) mg/dL Total Bilirubin 0.3 (0.0-1.0) mg/dL Direct Bilirubin 0.1 (0.0-0.5) mg/dL AST 26 (5-31) U/L ALT 16 (0-31) U/L Alkaline Phosphatase 109 (39-117) U/L Troponin I High Sens 3.3 (<3.5-17.0) ng/L Total Protein 7.5 (6.5-8.0) g/dL Albumin 4.0 (3.5-5.0) g/dL Lipase 31 (8-78) U/L Urine Color Yellow Urine Appearance Clear Urine pH 5.0 (5.0-9.0) Ur Specific [place] >= 1.030 H (1.005-1.025) Urine Protein 30 (1+) H (Neg-Trace) mg/dL Urine Glucose (UA) >=1000 H (Negative) mg/dL Urine Ketones Trace (Negative) mg/dL Urine Blood Negative (Negative) Urine Nitrite Negative (Negative) Ur Leukocyte Esterase Negative (Negative) Urine RBC 0-2 (0-2) /HPF Urine WBC 0-5 (0-5) /HPF Ur Squamous Epith Cells 3-5 (0-2) /HPF Urine Bacteria None Seen (None Seen) Hyaline Casts 11-20 (0-2) /LPF Influenza Type A (PCR) NEGATIVE (Negative) Influenza Type B (PCR) POSITIVE A (Negative) RSV RNA Qual (PCR) NEGATIVE (Negative) SARS-CoV-2 RNA (RT-PCR) NEGATIVE (Negative) Independent Interpretation I performed an independent interpretation of an: EKG, Plain X-Ray (no pneumonia) and CT Scan (1. Diverticulosis of the descending colon, without evidence of diverticulitis. 2. Small hiatal hernia. 3. Subcentimeter left renal angiomyolipoma. ) Interpretation: Rate: 84 Rhythm: NSR Victor: normal, LVH Normal P waves. Normal MCKENNA. Normal QRS complex. ST T wave : nonspecific ST T wave changes in lateral leads qTC: 486 prior studies: no acute ischemia, no ANDRZEJ The study has been interpreted contemporaneously by me. . Radiology Impression Discussion of test interpretation with radiology: I have reviewed the radiologist's reading. Independent Historian Clinical information obtained from an independent historian. History obtained from or confirmed by: EMS External Record Review External record reviewed: Outpatient record Prescription Management I considered prescription management with: Antiviral (out of window for tamiflu) Discharge Plan Discharge Clinical Impression: Influenza B Abdominal pain Qualifiers: Abdominal location: left lower quadrant Qualified Code(s): R10.32 - Left lower quadrant pain Patient Disposition: Home, Self-Care Instructions: Influenza (ED), Abdominal Pain (ED) Additional Instructions: labs reassuring urine no infection chest xray normal positive for flu B - you need to rest and stay hydrated return for worsening symptoms such as chest pain, unable to eat or drink, confusion or any other concerns Prescriptions: No Action chlorthalidone 25 mg tablet 25 mg PO DAILY glipizide 5 mg tablet extended release 24hr 5 mg PO DAILY metformin 1,000 mg tablet 1,000 mg PO BID (DME) FreeStyle Lite Strips Strip See Rx Instructions Not Applicable BID Qty: 10 Rx Instructions: As directed cholecalciferol (vitamin D3) 50 mcg (2,000 unit) tablet 50 mcg PO DAILY (DME) lancets [TRUEplus Lancets] 33 gauge misc See Rx Instructions Not Applicable BID Qty: 100 Rx Instructions: As directed lisinopril 40 mg tablet 40 mg PO DAILY omeprazole 20 mg capsule,delayed release(DR/EC) 20 mg PO DAILY hydrocortisone [Anusol-HC] 2.5 % cream with perineal applicator 1 appl AL BID-QID PRN (Reason: hemorrhoids) Qty: 30 3RF Rx Instructions: use as directed diclofenac sodium 1 % gel 2 g topical QID Jardiance 10 mg tablet 10 mg PO QAM ferrous sulfate 325 mg (65 mg iron) tablet,delayed release (DR/EC) 325 mg PO Q OTHER DAY sennosides [Natural Senna Laxative] 8.6 mg tablet 8.6 mg PO BEDTIME Qty: 90 3RF Stand Alone Forms: Work/School Release Print Language: Thai
[2024-12-02 08:03] LABS: MANUAL DIFF FLAG NO
[2024-12-02 08:06] LABS: Basophils Percent Auto 0.4 % (0-2); Eosinophils Absolute Auto 0.1 X10*3/uL (0.0-0.4); Eosinophils Percent Auto 0.9 % (0-4); Hematocrit 40.4 % (37.0-47.0); Hemoglobin 12.4 g/dl (12.0-16.0); Imm Gran Abs Auto 0.04 X10*3/uL (0.00-0.03); Imm Gran Pct Auto 0.4 % (0.0-0.4); Lymphocytes Percent Auto 20.4 % (20-40); Mean Corpuscular HGB Conc 30.7 g/dl (31.0-35.0); Mean Corpuscular Hemoglobin 24.2 pg (27.0-33.0); Mean Corpuscular Volume 78.8 fL (80.0-98.0); Mean Platelet Volume 11.3 fL (9.4-12.3); Monocytes Absolute Auto 0.7 X10*3/uL (0.1-1.2); Monocytes Percent Auto 6.7 % (2-11); Neutrophils Absolute Auto 7.1 x10*3/uL (2.0-8.3); Neutrophils Percent Auto 71.2 % (45-73); Platelet Count 333 X10*3/uL (160-400); Red Blood Count 5.13 X10*6/uL (4.20-5.50); Red Cell Distribution Width 15.2 % (11.0-16.0)
[2024-12-02] MEDS: Acetaminophen 1,000 MG/100 ML PIGGYBACK 400 MG IV (08:07)
[2024-12-02] MEDS: ondansetron HCL 4 MG/2 ML VIAL IVPUSH (08:08)
[2024-12-02 08:40] LABS: Influenza A PCR NEGATIVE (Negative); Influenza B PCR POSITIVE (Negative); Resp Syncy Virus RNA Qual PCR NEGATIVE (Negative); SARS COV2 PCR INHOUSE NEGATIVE (Negative)
[2024-12-02 09:44] LABS: Appearance Urine Clear; Color Urine Yellow; Glucose Urine UA >=1000 mg/dL (Negative); Leukocyte Esterase Urine Negative (Negative); Nitrite Urine Negative (Negative); Specific Gravity - Urine >= 1.030 (1.005-1.025); UMIC TRIGGER UACC YES; Urine Blood Negative (Negative); Urine Ketones Trace mg/dL (Negative); Urine Protein 30 (1+) mg/dL (Neg-Trace)
[2024-12-02 09:51] LABS: Alanine Aminotransferase 16 U/L (0-31); Alkaline Phosphatase 109 U/L (39-117); Anion Gap 14 (12-20); Aspartate Amino Transferase 26 U/L (5-31); Bilirubin Direct 0.1 mg/dL (0.0-0.5); Bilirubin Total 0.3 mg/dL (0.0-1.0); Blood Urea Nitrogen 21 mg/dL (9-16); Calcium 9.2 mg/dL (8.4-10.2); Carbon Dioxide 25 mmol/L (22-29); Chloride 102 mmol/L (96-108); Creatinine Clr Calc Pharmacy 51.9; Estimated Glomerular Filt Rate 40; Glucose Random 281 mg/dL (60-115); Lipase 31 U/L (8-78); Magnesium 1.9 mg/dL (1.6-2.6); Potassium 3.7 mmol/L (3.3-5.1); Sodium 137 mmol/L (135-145); Total Protein 7.5 g/dL (6.5-8.0)
[2024-12-02 09:53] LABS: Bacteria Urine None Seen (None Seen); RBC Urine 0-2 /HPF (0-2); WBC Urine 0-5 /HPF (0-5)
[2024-12-02 09:57] LABS: Troponin-I High Sensitivity 3.3 ng/L (<3.5-17.0)
[2024-12-02] MEDS: iohexoL 350 MG/ML 100 ML INFUS..BTL IV (10:17)
[2024-12-02 10:50] VITALS: BP 96/59; PULSE 74; RESP 14; TEMP 36.7; O2SAT 94
[2024-12-02] MEDS: Lactated Ringers 1,000 ML 999 ML IV (10:56)
[2024-12-02 12:49] VITALS: BP 96/59; PULSE 74; RESP 14; TEMP 36.7; O2SAT 94
[2024-12-03 11:05] LABS: Glucose, Whole Blood 350 mg/dL (60-115)
== END 2024-12-02 12:49 | disposition home or self-care (01) ==
PROVIDERS: Emergency Medicine; Emergency Provider Emergency Medicine
DX: J10.1 Influenza due to other identified influenza virus with other respiratory manifestations (principal); R42 Dizziness and giddiness; R10.32 Left lower quadrant pain; R11.2 Nausea with vomiting, unspecified; R05.9 Cough, unspecified; M79.10 Myalgia, unspecified site; Z03.818 Encounter for observation for suspected exposure to other biological agents ruled out; Z79.899 Other long term (current) drug therapy; Z87.891 Personal history of nicotine dependence
CPT/HCPCS: 0241U; 71045; 74177; 80048; 80076; 81001; 82947; 83690; 83735; 84484; 85025; 93005; 96365; 96366; 96375; 99284; J0131; J2405; J7120; Q9967

== ENCOUNTER → 2024-12-02 07:39 | Outpatient (BNV) | payer MEDICAID, SELFPAY | PROVIDERS: Emergency Provider Emergency Medicine; Visit Provider Internal Medicine | DX: R94.31 Abnormal electrocardiogram [ECG] [EKG] (principal); R55 Syncope and collapse | CPT/HCPCS: 93010 ==

== ENCOUNTER → 2024-12-02 07:46 | Outpatient (BNV) | payer MEDICAID, SELFPAY | PROVIDERS: Emergency Provider Emergency Medicine; Visit Provider Radiology Diagnostic Radiology | DX: K57.30 Diverticulosis of large intestine without perforation or abscess without bleeding (principal); D17.71 Benign lipomatous neoplasm of kidney; R05.9 Cough, unspecified | CPT/HCPCS: 71045; 74177 ==

== ENCOUNTER 2024-12-12 14:31 | Outpatient (AMB) | payer MEDICAID, SELFPAY ==
[2024-12-12 14:37] VITALS: BP 110/64; PULSE 71; BMI 36.6
--- NOTE | 2024-12-12 14:37 | MHC.OFFVIS ---
Vital Signs 12/12/24 14:37 Height 5 ft 4 in Weight 212 lb 15.465 oz BMI 36.6 BP 110/64 Blood Pressure Location Lt brachial Position Sitting Pulse 71 Pulse Source Monitor Intake Visit Reasons: 1 year f/u Gang Drill Operator Required: Yes Gang Drill Operator Language: Taping Machine Operator Name: velia/james/karime [id number] Accompanied by: Self / Same As Patient Allergies No Known Allergies [No Known Allergies*] Allergy (Verified 12/02/24 07:37) Medication List - Last Reconciled 12/12/24 by Adebayo Burks MD blood sugar diagnostic As directed chlorthalidone 25 mg PO DAILY cholecalciferol (vitamin D3) 50 mcg PO DAILY diclofenac sodium 1% 2 grams topical QID empagliflozin (Jardiance) 10 mg PO QAM ferrous sulfate 325 mg PO Q OTHER DAY glipizide ER 5 mg PO DAILY hydrocortisone 2.5% (Anusol-HC) 1 appl [place] BID-QID PRN lancets (TRUEplus Lancets) As directed lisinopril 40 mg PO DAILY metformin 1,000 mg PO BID omeprazole 20 mg PO DAILY sennosides (Natural Senna Laxative) 8.6 mg PO BEDTIME HPI Comments Details: Adeola returns for follow-up. In the past, she was seen regarding palpitations. Random episodes without any specific patterns. No other complaints like angina or shortness of breath. She underwent workup including echocardiogram/Holter monitor. That shows suggestion of PVCs. Over the last few months, she states that her palpitations have improved spontaneously and she is not really feeling them. Otherwise, no known cardiomyopathy or myocardial infarction. [facility] Medical History Dysplasia of cervix, low grade (MANISHA 1) Hypothyroid GERD (gastroesophageal reflux disease) Urge incontinence HTN (hypertension) Hemorrhoids Diabetes Surgical History Hx of colonoscopy History of Family History Family/Other Breast cancer Maternal Aunt Breast cancer Maternal Aunt Thyroid disease Father HTN (hypertension) Mother Hernia Age related osteoporosis Social History Household Members Other:: daughter Housing: Apartment Alcohol intake: former Patient Tobacco Use Status: Former Tobacco user service: No Current occupational status: employed Sexual orientation: Straight/Heterosexual Gender identity: Female Review of Systems Const Denies chills, Denies fatigue, Denies fever(s), Denies frequent falls, Denies weakness, Denies weight gain and Denies weight loss ENT Denies dizziness Card Denies chest pain, Denies leg edema, Denies lightheadedness, Denies palpitations, Denies dyspnea and Denies dyspnea on exertion Resp Denies cough, Denies dyspnea and Denies dyspnea on exertion GI Denies hematochezia Musc Denies abnormal gait, Denies muscle weakness, Denies numbness, Denies radiating pain into limb and Denies tingling Neuro Denies abnormal gait, Denies dizziness, Denies frequent falls, Denies numbness, Denies tingling and Denies weakness Endo Denies fatigue and Denies palpitations Physical Exam Vital Signs: Last Vital Signs Pulse 71 12/12/24 14:37 BP 110/64 12/12/24 14:37 BMI result Body Mass Index 36.6 Const General: comfortable and no acute distress Orientation/consciousness: patient oriented x3 HEENT Other: Unremarkable Head: Yes normal to inspection Neck Neck: Yes normal visual inspection Chest Chest palpation & inspection: normal inspection of the chest Resp Auscultation: clear to auscultation bilaterally Cardio Palpation: normal PMI Heart sounds: S1 normal heart sound present, S2 normal heart sound present, no gallops, no murmurs and no rubs GI Palpation (GI): Soft to palpation Back/Spine/Pelvis Other: unremarkable Skin General skin exam: no rashes or lesions noted Neuro General: patient oriented x3 Extrem General: Yes normal to inspection Psych Mental Status: mental status grossly normal Office Procedures EKG Details: EKG with underlying sinus rhythm at 71/Min; nonspecific ST[place] changes; [place] [id number], Complete Assessment & Plan Assessment & Plan (1) Heart palpitations: Code(s): R00.2 - Palpitations Category: Medical (2) PVC (premature ventricular contraction): Code(s): I49.3 - Ventricular premature depolarization Category: Medical Plan In the Holter monitor, underlying rhythm is sinus. PVCs reported as 1.3% but the strips do not show any isolated beats. There are 2 short runs, possible NSVT but can also be supraventricular with aberrancy. Echocardiogram with LVEF of 60-65%; mildly reduced peak global longitudinal strain but otherwise unremarkable. Overall, possible PVCs vs PACs causing palpitations in the past, but seems resolved at this time. As she has got no other cardiac symptoms, no specific intervention. We will assess her for any undiagnosed sleep apnea. Otherwise, mainly reassurance. Orders: Orders RT home sleep study Today G47.33 - Obstructive sleep apnea (adult) (pediatric) Coding Level of Care Code Est Pt Level 3 (42200) Diagnoses Heart palpitations R00.2 PVC (premature ventricular contraction) I49.3 CPT Codes EKG - CPT: 95262-[id number], Complete ([id number])
--- OUTSIDE RECORDS SUMMARY | 2024-12-12 17:13 | XMS_ITS | Encounter Summary ---
Author Organization [facility] Address [address] [facility] [address] [place] [address] Care Team Providers Care Store Group Manager Name Role Phone Nadine Ham MD Primary Care Provide r Encounter Details Date Type Department Care Team (Late st Contact Info) Description 02/02/2023 Orders Only [facility] MED & PEDS [address] [place] [address] Peace Murphy LPN Social History Tobacco Use [...] on filedocumented in this encounter Care Teams Store Group Manager Relationship Specialty Start Date End Date Nadine Ham MD [address] [place] [id number] PCP - General Family Medicine 07/23/18 documented as of this encounter
--- OUTSIDE RECORDS SUMMARY | 2024-12-12 17:14 | XMS_ITS | Encounter Summary ---
Author Organization [facility] [employer] Address [address] [facility] [address] [place] [address] Care Team Providers Care Licensed Prosthetist/Orthotist Name Role Phone Nadine Ham MD Primary Care Provide r Reason for Visit * Reason Onset Date Comments Appointment Request 11/27/2023 Encounter Details Date Type Department Care Team ([facility] st Contact Info) Description 11/27/2023 Telephone [facility] MEDICINE [address] [place] [address] Nadine Ham MD [address] [place] [address] Appointment Request Social History Tobacco Use Types [...] documented as of this encounter Care Teams Licensed Prosthetist/Orthotist Relationship Specialty Start Date End Date Nadine Ham MD [address] [place] [address] PCP - General Family Medicine 07/23/18 documented as of this encounter
--- OUTSIDE RECORDS SUMMARY | 2024-12-12 17:14 | XMS_ITS | Encounter Summary ---
Author Organization [facility] [employer] Address [address] [facility] [address] [place] [address] Care Team Providers Care Milieu Counselor Name Role Phone Nadine Ham MD Primary Care Provide r Encounter Details Date Type Department Care Team (Late st Contact Info) Description 01/18/2023 Orders Only [facility] MEDICINE [address] [place] [address] Valarie Dee, RN [address] [place] [address] Social History Tobacco Use Types Packs/Day Years [...] us Historical Provider HEALTH MAINTENANCE Final Result [facility] [address] [place] [address] [phone] documented in this encounter Visit Diagnoses Not on filedocumented in this encounter Care Teams Milieu Counselor Relationship Specialty Start Date End Date Nadine Ham MD [address] [place] [address] PCP - General Family Medicine 07/23/18 documented as of this encounter
--- OUTSIDE RECORDS SUMMARY | 2024-12-12 17:14 | XMS_ITS | Encounter Summary ---
Author Organization [facility] Address [address] [place] [address] [address] [place] [address] Care Team Providers Care Junior Business Analyst Name Role Phone Nadine Ham MD Primary Care Provide r Encounter Details Date Type Department Care Team (Late st Contact Info) Description 03/24/2023 Orders Only [facility] MEDICINE [address] [place] [address] Jessica Groves LPN Social History Tobacco Use [...] on filedocumented in this encounter Care Teams Junior Business Analyst Relationship Specialty Start Date End Date Nadine Ham MD [address] [place] [address] PCP - General Family Medicine 07/23/18 documented as of this encounter
--- OUTSIDE RECORDS SUMMARY | 2024-12-12 17:14 | XMS_ITS | Encounter Summary ---
Author Organization [employer] Address [address] [place] [address] [address] [place] [address] Care Team Providers Care Ios Programmer Name Role Phone Nadine Ham MD Primary Care Provide r Encounter Details Date Type Department Care Team (Late st Contact Info) Description 01/18/2023 Abstract [facility] MEDICINE [address] [place] [address] Nadine Ham MD [address] [place] [address] Social History Tobacco Use Types Packs/Day Years [...] AM EST Recommended 10 year follow up( [facility] ) Historical Provider HEALTH MAINTENANCE Final Result documented in this encounter Visit Diagnoses Not on filedocumented in this encounter Care Teams Ios Programmer Relationship Specialty Start Date End Date Nadine Ham MD [address] [place] [id number] PCP - General Family Medicine 07/23/18 documented as of this encounter
--- OUTSIDE RECORDS SUMMARY | 2024-12-12 17:14 | XMS_ITS | Encounter Summary ---
Author Organization [employer] Address [address] [facility] [address] [place] [address] Care Team Providers Care Career Education Teacher Name Role Phone Nadine Ham MD Primary Care Provide r Reason for Visit * Reason Comments Med Refill Encounter Details Date Type Department Care Team (Late st Contact Info) Description 10/15/2023 Refill [facility] MEDICINE [address] [place] [address] Emile Roldan MD [address] [place], [place] [id number] Type 2 diabetes mellitus without complication, unspecified whether longterm insulin use ([facility] Social History Tobacco Use Types Packs/Day Years Used Date Smoking Tobacco: Never Passive Smoke Exposure: Never Smokeless Tobacco: Never Depression Answer Date Recorded Patient Health Questionnaire-9 Score 0 06/15/2023 Housing Stability Answer Date Recorded What is your housing situation today? I have eben sing 06/26/[address] you li [...] 2 diabetes mellitus without complication, unspecified whether longterm insulin use ([facility]) documented in this encounter Additional Health Concerns Assessment Noted Time PHQ-9 Depression Total Score: 0 06/15/20 23 11:13 AM EDT documented as of this encounter Care Teams Career Education Teacher Relationship Specialty Start Date End Date Nadine Ham MD [address] [place], [place] PCP - General Family Medicine 07/23/18 documented as of this encounter
--- OUTSIDE RECORDS SUMMARY | 2024-12-12 17:14 | XMS_ITS | Encounter Summary ---
Author Organization [employer] Address [address] [facility] [address] [place] [address] Care Team Providers Care Pad Machine Offbearer Name Role Phone Nadine Ham MD Primary Care Provide r Encounter Details Date Type Department Care Team (Late st Contact Info) Description 10/03/2022 Orders Only [facility] MED & PEDS [address] [place] [address] Peace Murphy LPN Social History Tobacco Use [...] on filedocumented in this encounter Care Teams Pad Machine Offbearer Relationship Specialty Start Date End Date Nadine Ham MD [address] [place] [id number] PCP - General Family Medicine 07/23/18 documented as of this encounter
--- OUTSIDE RECORDS SUMMARY | 2024-12-12 17:14 | XMS_ITS | Encounter Summary ---
Author Organization [employer] Address [address] [facility] [address] [place] [address] Care Team Providers Care Wheat And Oats Flake Miller Name Role Phone Nadine Ham MD Primary Care Provide r Reason for Visit * Reason Comments Med Refill Encounter Details Date Type Department Care Team (Late st Contact Info) Description 10/15/2023 Refill [facility] MEDICINE [address] [place] [address] Doreen Marques MD [address] [place] [address] Essential hypertension Social History Tobacco Use Types [...] documented as of this encounter Care Teams Wheat And Oats Flake Miller Relationship Specialty Start Date End Date Nadine Ham MD [address] [place] [id number] PCP - General Family Medicine 07/23/18 documented as of this encounter
--- OUTSIDE RECORDS SUMMARY | 2024-12-12 17:14 | XMS_ITS | Clinical Summary ---
Author Organization [employer] Address [address] [place] [address] Care Team Providers Care Brands Editor Name Role Phone Nadine Ham MD Primary Care Provide r Allergies No known active allergies Medications Diclofenac Sodium 1 % gelIndications:O ther chronic pain APPLY 2 GRAMS TO AFFECTED AREA(S) FOUR TIMES DAILY 100 g 1 3 Active Lidoderm 5 % patch APPLY 1 TO 2 PATCHES TOPICALLY DAILY 12 HOURS ON, 12 HOURS OFF. NEEDED FOR PAIN 2 Active lisinopril 40 MG tablet take 1 tablet by oral route every day 2 Active FREESTYLE LITE test strip TEST BLOOD SUGAR TWICE DAILY 50 strip 11 3 Active TRUEplus Lancets 33G misc TEST BLOOD SUGAR TWICE DAILY 100 each 3 Active FREESTYLE LITE test strip TEST BLOOD SUGAR TWICE DAILY 3 Active TRUEplus Lancets 33G misc TEST BLOOD SUGAR TWICE DAILY 3 Active Cetylpyridinium Chloride (Mouth Rinse) 0.07 % liquidIndication s:Gingivitis Use 5 mL in the mouth or throat Once daily. 500 mL 3 Active fluticasone (Flonase) 50 MCG/ACT nasal spray Administer 1-2 sprays into each nostril in the morning for 14 days. Shake gently. Before first use, prime pump. After use, clean tip and replace cap. 16 g 3 Active glipiZIDE XL (Glucotrol XL) 5 MG 24 hr tablet TAKE 1 TABLET BY MOUTH TWICE DAILY 180 tablet 1 4 Active omeprazole (PriLOSEC) [address] capsuleIndicatio ns:Gastroesophag eal reflux disease, unspecified whether esophagitis present Take 1 capsule (20 mg) by mouth before breakfast and before evening meal. Do not crush or chew. 60 capsule 3 4 Active empagliflozin (Jardiance) 10 MGIndications:Ty pe 2 diabetes mellitus with hyperglycemia, without long-term current use of insulin ([facility]) Take 1 tablet (10 mg) by mouth in the morning. 30 tablet 11 4 Active lisinopril 40 MG tablet TAKE 1 TABLET BY MOUTH EVERY DAY 90 tablet 3 4 Active semaglutide (Ozempic) 2 MG/1.5ML solution pen-injectorIndi cations:Type 2 diabetes mellitus with hyperglycemia, without long-term current use of insulin ([facility]) Inject 0.25 mg under the skin 1 (one) time per week. 1 each 12 4 Active Additional Information Patient not taking.Reported on 08/15/2024 ferrous sulfate 325 (65 Fe) MG EC tabletIndication s:Iron deficiency anemia, unspecified iron deficiency anemia type Take 1 tablet (325 mg) by mouth every other day. Do not crush, chew, or split. 45 tablet 1 4 Active senna (Senokot) 8.6 MG tablet TAKE 1 TABLET BY MOUTH EVERY DAY AT BEDTIME FOR CONSTIPATION 4 Active omeprazole (PriLOSEC) [address] capsule TAKE 1 CAPSULE BY MOUTH EVERY DAY BEFORE A MEAL 90 capsule 1 5 Active metFORMIN (Glucophage) 1000 MG tabletIndication s:Type 2 diabetes mellitus without complication, unspecified whether exterminator helper insulin use ([facility]) TAKE 1 TABLET BY MOUTH TWICE DAILY IN THE MORNING AND IN THE EVENING WITH MEALS 180 tablet 1 5 Active chlorthalidone (Hygroton) 25 MG tabletIndication s:Essential hypertension TAKE 1 TABLET BY MOUTH EVERY MORNING 90 tablet 1 5 Active Acetaminophen Extra Strength 500 MG tabletIndication s:Tooth infection TAKE 2 TABLETS BY MOUTH EVERY 6 HOURS NEEDED FOR PAIN 30 tablet 5 Active cholecalciferol (Vitamin D-3) 25 MCG tabletIndication s:Type 2 diabetes mellitus with hyperglycemia, without long-term current use of insulin (CMS/HCC) TAKE 1 TABLET BY MOUTH EVERY DAY 60 tablet 5 Active gabapentin (Neurontin) 100 MG capsuleIndicatio ns:Fibromyalgia TAKE 3 CAPSULES BY MOUTH TWICE DAILY 180 capsule 5 Active lidocaine (Lidoderm) 5 % patchIndications :Pain APPLY 1 TO 2 PATCHES TOPICALLY TO SKIN, LEAVE ON FOR 12 HOURS AND OFF FOR 12 HOURS DIRECTED 60 patch 2 5 Active Active Problems Problem Noted Date Diagnosed Date [...] Encounters Date Type Department Care Team Description 2024 Orders Only GENERIC EXTERNAL DATA DEPARTMENT Provider, Generic External Data 11/15/2024 Population Health Risk Score [facility] ([facility]) Department [address] [phone] Provider, Population Health Generic 10/31/2024 Telephone [facility] [address] [place] [address] Nadine Ham MD nurse triage 10/29/2024 Orders Only GENERIC EXTERNAL DATA DEPARTMENT Provider, Generic External Data 10/16/2024 Refill [facility] [address] [place] [address] Nadine Ham MD Tooth infection; Type 2 diabetes mellitus with hyperglycemia, without long-term current use of insulin ([facility]); Fibromyalgia; Pain 10/13/2024 Refill [facility] [address] [place] [address] Nadine Ham MD Type 2 diabetes mellitus without complication, unspecified whether fdc insulin use ([facility]); Essential hypertension 09/26/2024 2:00 PM EST Office Visit [facility] [address] [place] [address] Bnag, Liliana, OD Presbyopia (Primary Dx) from Last 3 Months Immunizations Name Administration [...] 2024 07/25/2019 Dental X-Ray: Bitewings 05/18/2024 05/17/2023 Depression Screening 06/15/2024 06/15/2023, 06/15/20 23 SDOH Screening 06/15/2024 06/15/2023 Diabetes: Hemoglobin A1C 10/23/2024 024, 03/11/2024, 12/12/2023, Additional history exists Mammogram 03/14/2025 03/14/2024, 06/04, 10/09/2018 Tobacco Screening 08/16/2025 08/16/2024 Diabetes: Urine Protein Screening 10/29/2025 10/29/2024, 05/25/2023 Lipid Panel 10/29/2025 10/29/2024, 05/06, 11/08/2021 Dental X-Ray: Full Mouth 05/18/2026 05/17/2023 Eye [...] Procedure Name Priority Date/Time Associated Diagnosis Comments CT ABDOMEN PELVIS W CONTRAST Routine 2024 10:13 AM EDT URINALYSIS, COMPLETE, WITH REFLEX TO CULTURE Routine 2024 9:38 AM EDT HIGH SENSITIVITY TROPONIN I Routine 2024 9:30 AM EDT LIPASE Routine 2024 9:30 AM EDT MAGNESIUM Routine 2024 9:30 AM EDT BASIC METABOLIC PANEL Routine 2024 9:30 AM EDT HEPATIC FUNCTION PANEL Routine 9:30 AM EDT CBC WITH AUTO DIFFERENTIAL Routine 2024 7:59 AM EDT SARS COV2/INFLUENZA A/B AND RSV RNA QL NAAT Routine 2024 7:59 AM EDT XR CHEST 1 VIEW Routine 2024 7:46 AM EDT GLUCOSE, WHOLE BLOOD Routine 2024 7:38 AM EDT COMPREHENSIVE METABOLIC PANEL Routine 10/29/2024 1:15 PM EST Type 2 diabetes mellitus with hyperglycemia, without long-term current use of insulin (CMS/HCC) ALBUMIN, RANDOM URINE W/CREATININE Routine 10/29/2024 1:15 PM EST Type 2 diabetes mellitus with hyperglycemia, without long-term current use of insulin (CMS/HCC) LIPID PANEL, STANDARD Routine 10/29/2024 1:15 PM EST Type 2 diabetes mellitus with hyperglycemia, without long-term current use of insulin (CMS/HCC) CBC WITH AUTO DIFFERENTIAL Routine 10/29/2024 1:13 PM EST POCT GLYCATED HEMOGLOBIN, TOTAL Routine 07/23/2024 3:29 PM EST Type 2 diabetes mellitus with hyperglycemia, without long-term current use of insulin (CMS/HCC) BI MAMMOGRAM SCREENING TOMOSYNTHESIS BILATERAL Routine 03/14/2024 2:36 PM EDT Encounter for screening mammogram for malignant neoplasm of breast INTRAORAL - COMPLETE SERIES OF RADIOGRAPHIC IMAGES [...] Recently Relevant to Health Maintenance Results * CT Abdomen Pelvis w/ Contrast (2024 10:13 AM EDT) Anatomical Region Laterality Modality Body, Pelvis, Abdomen Computed T omography 2024 10:1 3 AM EDT Narrative 2024 11:03 AM EDT ? [facility] ?[address] ?[place] [address] ? CT Scan Report ? Signed ? Patient: Silvio Hardy,Adeola ?M ?? R#: [id number] ? : 1970 ?Acct:[id number] ? Age/Sex: 54 / F ?ADM Date: 12/02/24 ? Loc: HO.ED ? Attending Dr: ? Ordering Physician: Alondra Munoz DO ?? Date of Service: 12/02/24 ?? Procedure(s): CT abdomen pelvis w IV con ?? Accession Number(s): [id number] ? cc: Alondra Munoz DO; [facility] ? Report Number: ?? [id number]: Total DLP = ??785.00 mGy-cm ?? EXAMINATION: ??CT ABDOMEN PELVIS WITH IV CONTRAST ? HISTORY: LLQ pain, n/v/d ? COMPARISON: Comparison is made with the prior examination dated ?? 02/10/2022. ? TECHNIQUE: CT scan of the abdomen and pelvis was performed following ?? administration of 85 mL Omnipaque 350 using standard departmental ?? protocol. ?? Coronal and sagittal reformatted images were generated and ?? reviewed. ??Oral contrast material was not administered at the request ?? of the referring physician. ? This CT exam was performed with one or more of the following dose ?? reduction techniques: automated exposure control, adjustment of the mA ?? and/or kV according to patient size, use of iterative reconstruction ?? technique. ? DLP: 785 mGy-cm ? FINDINGS: ? LOWER CHEST: The visualized lung bases are clear. There is no pleural ?? effusion. ? CARDIOVASCULATURE: The heart is normal in size. ??There is no ?? pericardial effusion. ? LIVER: ??The liver is normal in size and contour. ??No liver mass is ?? identified. ??The hepatic and portal veins are patent. ? GALLBLADDER / BILE DUCTS: ??The gallbladder is unremarkable. There is no ?? intra or extrahepatic biliary ductal dilatation. ? SPLEEN: The spleen is normal in size. No focal splenic lesion is ?? identified. ? PANCREAS: The pancreas is unremarkable in appearance. ? ADRENAL GLANDS: Within normal limits. ? KIDNEYS/RETROPERITONEUM: No renal calculi are identified. There is no ?? hydronephrosis. ??There is a subcentimeter fat attenuation lesion at the ?? upper pole of the left kidney, consistent with a tiny angiomyolipoma. ? LYMPH NODES: ??No abdominal or pelvic lymphadenopathy. ? VASCULATURE: ??The abdominal aorta demonstrates atherosclerotic ?? calcification, but is normal in caliber. ? MESENTERY/PERITONEUM: No free fluid. No masses. ??There is no free ?? intraperitoneal gas. ? STOMACH: ??There is a small hiatal hernia. The stomach is collapsed, ?? limiting evaluation. ? SMALL BOWEL: ?? The small bowel is normal in caliber. ? COLON: ??There are scattered diverticuli of the descending colon, ?? without evidence of diverticulitis. ? APPENDIX: ??Normal. ? URINARY BLADDER/PELVIC ORGANS: The urinary bladder is collapsed, ?? limiting evaluation. ??The uterus and ovaries are unremarkable. ? BONES / SOFT TISSUES: ??No suspicious bony or soft tissue abnormalities. ? CT/CT abdomen pelvis w IV con ?? IMPRESSION: ? 1. Diverticulosis of the descending colon, without evidence of ?? diverticulitis. ? 2. Small hiatal hernia. ? 3. Subcentimeter left renal angiomyolipoma. ? Electronically signed by: ??Irvin Maher MD ??2024 11:01 AM EDT ?? RP ? Dictated By: ?Irvin Maher MD ? Signed By: ?<Electronically signed by Irvin Maher MD in OV> ?12/02/24 1101 ? DD/ 1013 ? TD/TT: 12/02/24 1051 ? Principal Android Developer: ? Procedure Note Roz, Image - [address] [place] [address] CT Scan Report Signed Patient: Gonzalo De La Fuente R#: [id number] : 1970Acct:[id number] Age/Sex: 54 / FADM Date: 12/02/24 Loc: HO.ED Attending Dr: Ordering Physician: Alondra Munoz DO Date of Service: 12/02/24 Procedure(s): CT abdomen pelvis w IV con Accession Number(s): [id number] cc: Alondra Munoz DO; [facility] Report Number: [id number]: Total DLP = 785.00 mGy-cm EXAMINATION: CT ABDOMEN PELVIS WITH IV CONTRAST HISTORY: LLQ pain, n/v/d COMPARISON: Comparison is made with the prior examination dated 02/10/2022. TECHNIQUE: CT scan of the abdomen and pelvis was performed following administration of 85 mL Omnipaque 350 using standard departmental protocol. Coronal and sagittal reformatted images were generated and reviewed. Oral contrast material was not administered at the request of the referring physician. This CT exam was performed with one or more of the following dose reduction techniques: automated exposure control, adjustment of the mA and/or kV according to patient size, use of iterative reconstruction technique. DLP: 785 mGy-cm FINDINGS: LOWER CHEST: The visualized lung bases are clear. There is no pleural effusion. CARDIOVASCULATURE: The heart is normal in size. There is no pericardial effusion. LIVER: The liver is normal in size and contour. No liver mass is identified. The hepatic and portal veins are patent. GALLBLADDER / BILE DUCTS: The gallbladder is unremarkable. There is no intra or extrahepatic biliary ductal dilatation. SPLEEN: The spleen is normal in size. No focal splenic lesion is identified. PANCREAS: The pancreas is unremarkable in appearance. ADRENAL GLANDS: Within normal limits. KIDNEYS/RETROPERITONEUM: No renal calculi are identified. There is no hydronephrosis. There is a subcentimeter fat attenuation lesion at the upper pole of the left kidney, consistent with a tiny angiomyolipoma. LYMPH NODES: No abdominal or pelvic lymphadenopathy. VASCULATURE: The abdominal aorta demonstrates atherosclerotic calcification, but is normal in caliber. MESENTERY/PERITONEUM: No free fluid. No masses. There is no free intraperitoneal gas. STOMACH: There is a small hiatal hernia. The stomach is collapsed, limiting evaluation. SMALL BOWEL: The small bowel is normal in caliber. COLON: There are scattered diverticuli of the descending colon, without evidence of diverticulitis. APPENDIX: Normal. URINARY BLADDER/PELVIC ORGANS: The urinary bladder is collapsed, limiting evaluation. The uterus and ovaries are unremarkable. BONES / SOFT TISSUES: No suspicious bony or soft tissue abnormalities. CT/CT abdomen pelvis w IV con IMPRESSION: 1. Diverticulosis of the descending colon, without evidence of diverticulitis. 2. Small hiatal hernia. 3. Subcentimeter left renal angiomyolipoma. Electronically signed by: Irvin Maher MD 2024 11:01 AM EDT RP Dictated By: Irvin Maher MD Signed By: <Electronically signed by Irvin Maher MD in OV> 12/02/24 1101 DD/ 1013 TD/TT: 12/02/24 1051 Principal Android Developer: [facility] External Provider IMG CT PROCEDURES Final Result * (ABNORMAL) Urinalysis, Complete, with Reflex to Culture (2024 9:38 AM EDT) Color Urine Yellow [facility] Appearance Urine Clear [facility] PH 5.0 5.0 - 9.0 [facility] Glucose Urine UA >=1000(A) Negative mg/dL [facility] Urine Blood Negative Negative [facility] Specific [place] - Urine >=1.030(H) 1.005 - 1.025 [facility] Urine Protein 30 (1+)(A) Neg-Trace mg/dL [facility] Urine Ketones Trace Negative mg/dL [facility] Nitrite Urine Negative Negative [facility] Leukocyte Esterase Urine Negative Negative [facility] RBC Urine 0-2 0 - 2 /HPF [facility] Urine WBC 0-5 0 - 5 /HPF [facility] Urine Squamous Epithelial Cell 3-5 0 - 2 /HPF [facility] Urine Bacteria None Seen None Seen [facility] Hyaline Casts, Urine 11-20 0 - 2 /LPF [facility] 2024 9:38 AM EDT 2024 9:40 AM EDT Narrative [facility] - 2024 9:54 AM EDT [id number], Clean Catch us Generic External Data Provider LAB URINE ORDERAB LES Final Result Performing Organization Address [facility] Co de Phone Number [facility] [address] [place] [phone] * High Sensitivity Troponin I (2024 9:30 AM EDT) TROPONIN I HIGH SENSITIVITY 3.3 <3.5 - 17.0 ng/L [facility] Comment:The Shin high sens itivity Troponin-I results should beused in conjunction with other diagnostic information suchas ECG, clinical observations and information, and patientsymptoms to aid in the diagnosis of HI. 2024 9:30 AM EDT 2024 9:33 AM EDT us Generic External Data Provider LAB BLOOD ORDERAB LES Final Result Performing Organization Address [facility] Co de Phone Number [facility] [address] [place] [phone] * Magnesium (2024 9:30 AM EDT) Magnesium 1.9 1.6 - 2.6 mg/dL [facility] 2024 9:30 AM EDT 2024 9:33 AM EDT us Generic External Data Provider LAB BLOOD ORDERAB LES Final Result Performing Organization Address [facility] Co de Phone Number [facility] [address] [place] [phone] * Lipase (2024 9:30 AM EDT) [facility] Lipase 31 8 - 78 U/L [facility] 2024 9:30 AM EDT 2024 9:33 AM EDT Generic External Data Provider LAB BLOOD ORDERAB LES Final Result Performing Organization Address [facility] Co de Phone Number [facility] [address] [place] [phone] * Hepatic Function Panel (2024 9:30 AM EDT) [facility] Bilirubin, Total 0.3 0.0 - 1.0 mg/dL [facility] Bilirubin, Direct 0.1 0.0 - 0.5 mg/dL [facility] Aspartate Amino Transferase 26 5 - 31 U/L [facility] Alanine Aminotransferase 16 0 - 31 U/L [facility] Total Protein 7.5 6.5 - 8.0 g/dL [facility] Albumin Level 4.0 3.5 - 5.0 g/dL [facility] Alkaline Phosphatase 109 39 - 117 U/L [facility] 2024 9:30 AM EDT 2024 9:33 AM EDT us Generic External Data Provider LAB BLOOD ORDERAB LES Final Result Performing Organization Address [facility] Co de Phone Number [facility] [address] [place] [phone] * (ABNORMAL) Basic Metabolic Panel (2024 9:30 AM EDT) [facility] Sodium 137 135 - 145 mmol/L [facility] Potassium 3.7 3.3 - 5.1 mmol/L [facility] Chloride 102 96 - 108 mmol/L [facility] Carbon Dioxide 25 22 - 29 mmol/L [facility] Anion Gap 14 12 - 20 [facility] Urea Nitrogen (BUN) 21(H) 9 - 16 mg/dL [facility] Creatinine, Serum 1.38 0.5 - 1.4 mg/dL [facility] Creatinine Clr Calc Pharmacy 51.9 [facility] Comment:Provided height and weight: 162.56 cm,96.7 kg.eGFR (calculated from the MDRD study equation) and eCrCl(calculated from the Cockcroft-Gault equation) are based ondifferent parameters and may not yield comparable results.If eCrCl result is absurd, please check patient'sheight/weight. Estimated Glomerular Filt Rate 40 [facility] Comment:Chronic Kidney Disea se: Estimated GFR < 60 mL/min/1.64c1Ediewn Kidney Disease: Estimated GFR < 15 mL/min/1.73m2 Glucose 281(H) 60 - 115 mg/dL [facility] Calcium 9.2 8.4 - 10.2 mg/dL [facility] 2024 9:30 AM EDT 2024 9:33 AM EDT us Generic External Data Provider LAB BLOOD ORDERAB LES Final Result [facility] [address] [place] [phone] * (ABNORMAL) SARS-CoV-2 RNA, Influenza A/B, and RSV RNA, Ql NAAT (2024 7:59 AM EDT) Influenza A PCR NEGATIVE Negative [facility] Influenza B PCR POSITIVE(A) Negative [facility] Resp Syncy Virus RNA Qual PCR NEGATIVE Negative [facility] SARS COV2 PCR NEGATIVE Negative [facility] Comment:All test results mus t be correlated with clinical findings.Negative results do not preclude SARS-CoV2, influenza Avirus, influenza B virus and/or RSV infectionand should not be used as the sole basis for treatment orother patient management decisions. Negative results must becombined with clinical observations, patient history, andepidemiological information.This test has not been evaluated for monitoring treatment ofinfection.This test has been authorized by the FDA under an EmergencyUse Authorization (EUA) for use by authorized laboratories.Testing performed on the [employer] GeneXpert utilizingreal-time RT-PCR.All SARS CoV2 and positive influenza A/B results arereported to [facility]. 2024 7:59 AM EDT 2024 8:02 AM EDT us Generic External Data Provider LAB MICROBIOLOGY - GENERAL ORDERABLES Final Result [facility] [address] [place] [phone] * (ABNORMAL) CBC auto differential (2024 7:59 AM EDT) Only the most recent of2 resultswithin the time period is included. White Blood Count 10.0 4.8 - 10.8 X10*3/uL [facility] Red Blood Count 5.13 4.20 - 5.50 X10*6/uL [facility] Hemoglobin 12.4 12.0 - 16.0 g/dl [facility] Hematocrit 40.4 37.0 - 47.0 % [facility] Mean Corpuscular Volume 78.8(L) 80.0 - 98.0 fL [facility] Mean Corpuscular Hemoglobin 24.2(L) 27.0 - 33.0 pg [facility] Mean Corpuscular HGB Conc 30.7(L) 31.0 - 35.0 g/dl [facility] Red Cell Distribution Width 15.2 11.0 - 16.0 % [facility] Platelet Count 333 160 - 400 X10*3/uL [facility] Mean Platelet Volume 11.3 9.4 - 12.3 fL [facility] Neutrophils Percent Auto 71.2 45 - 73 % [facility] Imm Gran Pct Auto 0.4 0.0 - 0.4 % [facility] Lymphocytes Percent Auto 20.4 20 - 40 % [facility] Monocytes Percent Auto 6.7 2 - 11 % [facility] Eosinophils Percent Auto 0.9 0 - 4 % [facility] Basophils Percent Auto 0.4 0 - 2 % [facility] NRBC Pct Auto 0.0 0.0 - 0.2 /100WBC [facility] Neutrophils Absolute Auto 7.1 2.0 - 8.3 x10*3/uL [facility] Imm Gran Abs Auto 0.04(H) 0.00 - 0.03 X10*3/uL [facility] Lymphocytes Absolute Auto 2.0 1.2 - 4.9 X10*3/uL [facility] Monocytes Absolute Auto 0.7 0.1 - 1.2 X10*3/uL [facility] Eosinophils Absolute Auto 0.1 0.0 - 0.4 X10*3/uL [facility] Basophils Absolute Auto 0.0 0.0 - 0.2 X10*3/uL [facility] NRBC Abs Auto 0.000 0.0 - 0.012 X10*3/uL [facility] 2024 7:59 AM EDT 2024 8:02 AM EDT us Generic External Data Provider LAB BLOOD ORDERAB LES Final Result Performing Organization Address City/State/[facility] Co de Phone Number [facility] [address] [place] [phone] * XR Chest 1 View (2024 7:46 AM EDT) Anatomical Region Laterality Modality Chest Radiographic Dionna ging 2024 7:46 AM EDT Narrative 2024 8:22 AM EDT ? [facility] ?[address] ?[place] [address] ?XRay Report ? Signed ? Patient: Silvio Hardy,Adeola ?M ?? R#: [id number] ? : 1970 ?Acct:[id number] ? Age/Sex: 54 / F ?ADM Date: 12/02/24 ? Loc: HO.ED ? Attending Dr: ? Ordering Physician: Alondra Munoz DO ?? Date of Service: 12/02/24 ?? Procedure(s): XR chest 1V ?? Accession Number(s): [id number] ? cc: Alondra Munoz DO; [facility] ? EXAMINATION: ?? XR CHEST ? CLINICAL INFORMATION: ?? cough ? COMPARISON: ?? January 21, 2020. ? TECHNIQUE: ?? Frontal view of the chest was obtained. ? FINDINGS: ?? No consolidation, pleural effusion or pneumothorax. Cardiomediastinal ?? silhouette size is normal with a round shaped apex. Prominent ascending ?? thoracic aorta. ?? Multilevel thoracic spondylosis. ?? Degenerative changes in the shoulders. ? XR/XR chest 1V ?? IMPRESSION: ?? No acute airspace disease. ?? Consider hypertensive cardiomyopathy in the correct clinical settings. ? Electronically signed by: ??Sam Garg MD ??2024 08:19 AM ?? EDT RP ? Dictated By: ?Sam Santos MD ? Signed By: ?<Electronically signed by Sam Trivedi MD in OV> ? 12/02/24 0819 ? DD/ ? TD/TT: 12/02/24812 ? Principal Android Developer: ? Procedure Note Roz, Image - [address] [address] XRay Report Signed Patient: Gonzalo De La Fuente R#: [id number] : 1970Acct:[id number] Age/Sex: 54 / FADM Date: 12/02/24 Loc: HO.ED Attending Dr: Ordering Physician: Alondra Munoz DO Date of Service: 12/02/24 Procedure(s): XR chest 1V Accession Number(s): [id number] cc: Alondra Munoz DO; [facility] EXAMINATION: XR CHEST CLINICAL INFORMATION: cough COMPARISON: January 21, 2020. TECHNIQUE: Frontal view of the chest was obtained. FINDINGS: No consolidation, pleural effusion or pneumothorax. Cardiomediastinal silhouette size is normal with a round shaped apex. Prominent ascending thoracic aorta. Multilevel thoracic spondylosis. Degenerative changes in the shoulders. XR/XR chest 1V IMPRESSION: No acute airspace disease. Consider hypertensive cardiomyopathy in the correct clinical settings. Electronically signed by: Sam Garg MD 2024 08:19 AM EDT RP Dictated By: Sam Santos MD Signed By: <Electronically signed by Sam Trivedi MDin OV> 2419 DD/ TD/TT: 12/02/24 08 Principal Android Developer: [facility] External Provider IMG XR PROCEDURES Final Result * (ABNORMAL) Glucose, Whole Blood (2024 7:38 AM EDT) Glucose, Whole Blood 350(HH) 60 - 115 mg/dL [facility] Comment:METER #: [id number] 2024 7:38 AM EDT 12/03/2024 11:04 AM EDT Generic External Data Provider LAB BLOOD ORDERAB LES Final Result [facility] [address] [place] [phone] * Albumin, Random Urine W/Creatinine (10/29/2024 1:15 PM EST) Creatinine, Urine 88.15 mg/dL [facility] Microalbumin Urine 5.0 mg/L H [facility] Microalbum Creatinine Ratio Ur 5.6 <30 ug/mg cr [facility] Comment:Albumin/Creatinine R atio Reference Ranges: Normal: < 30 ug/mg creatinine Microalbuminuria: 30 - 300 ug/mg creatinineClinical Albuminuria: > 300 ug/mg creatinine Urine (Urine, Random) 10/29/2024 1:15 PM EST 10/29/2024 4:14 PM EST us Nadine Castellano MD LAB URINE ORDERABLES Final Result Performing Organization Address [facility] Co de Phone Number [facility] [address] [place] [address] [phone] * (ABNORMAL) Lipid Panel, Standard (10/29/2024 1:15 PM EST) Triglycerides 181(H) <150 mg/dL [facility] Comment:Slight Lipemia.Betty able Triglyceride: less than 150 mg/dLBorderline High Triglyceride 150-199 mg/dLHigh Triglyceride: 200-499 mg/dLVery High Triglyceride: greater than or equal to 5OO mg/dL Cholesterol 172 <200 mg/dL [facility] Comment:Desirable Cholestero l: less than 200 mg/dLBorderline High Cholesterol: 200-239 mg/dLHigh Cholesterol: greater than 239 mg/dL LDL Cholesterol Calculated 80 <100 mg/dL [facility] Comment:Desirable LDL: less than 100 mg/dLNear Optimal/Above Optimal LDL: 110- 129 mg/dLBorderline High LDL: 130-159 mg/dLHigh LDL: 160-189 mg/dLVery High LDL: greater than or equal to 190 mg/dL HDL Cholesterol 56 >40 mg/dL [facility] Comment:Desirable HDL: great er than 40 mg/dL Note: This HDL assay may give artificially low results in patients with liver disease. Blood Venous blood specimen / Unknown 10/29/2024 1:15 PM EST 10/29/2024 4:08 PM EST us Nadine Castellano MD LAB BLOOD ORDERABLES Final Result Performing Organization Address City/[facility]/ZIP Co de Phone Number [facility] [address] [place] [address] [phone] * (ABNORMAL) Comprehensive Metabolic Panel (10/29/2024 1:15 PM EST) Sodium 139 135 - 145 mmol/L [facility] Potassium 3.9 3.3 - 5.1 mmol/L [facility] Chloride 105 96 - 108 mmol/L [facility] Carbon Dioxide 26 22 - 29 mmol/L [facility] Anion Gap 12 12 - 20 [facility] Urea Nitrogen (BUN) 15 9 - 16 mg/dL [facility] Creatinine, Serum 0.92 0.5 - 1.4 mg/dL [facility] Estimated Glomerular Filt Rate >60 [facility] Comment:Chronic Kidney Disea se: Estimated GFR < 60 mL/min/[id number] Kidney Disease: Estimated GFR < 15 mL/min/1.73m2 Glucose 227(H) 60 - 115 mg/dL [facility] Calcium 9.7 8.4 - 10.2 mg/dL [facility] Bilirubin, Total 0.2 0.0 - 1.0 mg/dL [facility] Aspartate Amino Transferase 22 5 - 31 U/L [facility] Alanine Aminotransferase 39(H) 0 - 31 U/L [facility] Total Protein 8.3(H) 6.5 - 8.0 g/dL [facility] Albumin Level 4.2 3.5 - 5.0 g/dL [facility] Alkaline Phosphatase 139(H) 39 - 117 U/L [facility] Blood Venous blood specimen / Unknown 10/29/2024 1:15 PM EST 10/29/2024 4:08 PM EST us Nadine Castellano MD LAB BLOOD ORDERABLES Final Result [facility] [address] [place] [phone] [phone] * (ABNORMAL) POCT HGB A1C (07/23/2024 [...] EDT Narrative 04/09/2024 8:56 AM EDT ? [facility] ? [address] ?[place], [place] [address] ? Mammography Report ? Signed ? Patient: Adeola De La Fuente ?M ?? R#: [id number] ? : 1970 ?Acct:[id number] ? Age/Sex: 53 / F ?ADM Date: 03/14/24 ? Loc: HO.MAMMO ? Attending Dr: Nadine Castellano MD ? Ordering Physician: Nadine Ham MD ?Results: ?? 2Benign Findings ? Date of Service: 03/14/24 ?Follow Up: 1 Year From Orig ?? inal Mammogram ? Procedure(s): MM tomosynthesis screening BI ?? Accession Number(s): [id number] ? cc: [place] Castellano,Nadine DISLA ? EXAMINATION: ?? MM SCREENING DIGITAL BREAST [...] by Virginia Lau MD in OV> ? 04/09/24851 ? DD/ 1436 ? TD/TT: ? Principal Android Developer: ? Procedure Note Roz, Image - 04/09/2024 [facility] [address] [place] [address] Dr. [place], [place] [address] Mammography Report Signed Patient: Gonzalo De La Fuente R#: [id number] : 1970Acct:[id number] Age/Sex: 53 / FADM Date: 03/14/24 Loc: HO.MAMMO Attending Dr: Nadine Castellano MD Ordering Physician: Nadine Hamesults: 2Benign Findings Date of Service: 03/14/24Follow Up: 1 Year From Orig inal Mammogram Procedure(s): MM tomosynthesis screening BI Accession Number(s): [id number] cc: Nadine Ham MD EXAMINATION: MM SCREENING [...] in OV> 04/09/24 0852 DD/ 1436 TD/TT: Principal Android Developer: Nadine Castellano MD IMG BI PROCEDURES Fin al Result * (ABNORMAL) HPV mRNA E6/E7 w/Reflex to HPV Genotypes 16, 18/45 (02/01/2023 3:18 PM EDT) HPV nRNA E6/E7 Detected(A ) Not Detected [facility] Comment:Methodology: Transcr iption-Mediated AmplificationThis assay detects E6/E7 viral messenger RNA (mRNA) from 14high-risk HPV types (16,18,31,33,35,39,45,51,52,56,58,59,66,68).Cervical sources are required for HPV testing.If a vaginal source from a patient who has had atotal hysterectomy with removal of cervix wassubmitted, please contact the testing laboratoryfor alternative testing options.For additional information, please refer tohttp://education.[employer]/faq/MCE050l9(This link if provided for information/educational purposes only.)THIS TEST WAS PERFORMED AT:[employer] [address] [id number] STAUFFER MD HPV 16 RNA NOT DETECTED NOT DETECTED [facility] HPV 18/45 RNA NOT DETECTED NOT DETECTED [facility] Comment:Methodology: Transcr iption Mediated AmplificationCervical sources are required for HPV testing.If a vaginal source from a patient who has had atotal hysterectomy with removal of cervix wassubmitted, please contact the testing laboratoryfor alternative testing options.THIS TEST WAS PERFORMED AT:[facility] [address] [phone] STAUFFER MD 02/01/2023 3:18 PM EDT 02/02/2023 8:30 AM EDT [facility] External Provider LAB CYT OLOGY ORDERABLES Final Result [facility] [address] [place] [phone] [phone] * Pap Smear (02/01/2023 3:18 PM EDT) 02/01/2023 3:18 PM EDT 02/02/2023 8:30 AM EDT Narrative [facility] - 02/22/2023 6:19 PM EDT ----- ------- Name: Adeola De La Fuente ? Age/Sex: 52/F ? : 1970 Unit#: [id number] ?? Attend Dr: Murali Leon MD ?Re02/01/23 ?Status: DEP REF ? Location: HO.LNP ?Disch: ? ----- ------- SPEC : [id number] ? RECD: 02/02/23 ? STATUS: ??SOUT ? REQ NUM: [id number] ? MIROSLAVA: 02/01/23-3456 ? SUBM DR: Murali Leon MD ? [...] Not Detected ? HPV testing performed by [facility], [place], [place]. ??See reference laboratory ?? portion of the EMR for entire report. ?Clinical Information LMP: Postmenopausal Previous PAP test: 2020, MANISHA I ? Material Received ?? ThinPrep-Cervical Copies To: ?? Nadine Ham MD ?? [address] [facility] ?? [place] [address] ?? [phone] ?? Murali Leon MD ?? [address] [place] [address] [address] [facility] ?? [place] [address] ?? [phone] ----- ------- Signed (signature on file) Teresa Ferrera 02/22/231818 ? ----- ------- ? END OF REPORT ? [facility] External Provider LAB CYT OLOGY ORDERABLES Final Result [facility] [address] [place] [phone] [phone] * Colonoscopy (10/07/2019) Colonoscopy Normal Normal 10/07/2019 Iona Gaytan Maricel - 10/07/2019 11:48 AM EST Recommended 10 year follow up( [facility] [place] Historical Provider MD HEALTH MAINTENANCE Final Result from Last 3 Months or Most Recently Relevant to Health Maintenance Insurance [facility] C[place] AD[place] Care Teams Brands Editor Relationship Specialty Start Date End Date Nadine Ham MD [address] [place] [address] PCP - General Family Medicine 07/23/18
--- OUTSIDE RECORDS SUMMARY | 2024-12-12 17:14 | XMS_ITS | Encounter Summary ---
Author Organization [employer] Address [address] [facility] 7t [place] [address] Care Team Providers Care Level Vial Inspector Name Role Phone Nadine Ham MD Primary Care Provide r Encounter Details Date Type Department Care Team ([facility] st Contact Info) Description 07/13/2023 Orders Only [facility] [address] [place] [address] Nadine Ham MD [address] [place] [address] Social History Tobacco Use Types Packs/Day Years [...] documented as of this encounter Care Teams Level Vial Inspector Relationship Specialty Start Date End Date Nadine Ham MD [address] [place] [address] PCP - General Family Medicine 07/23/18 documented as of this encounter
--- OUTSIDE RECORDS SUMMARY | 2024-12-12 17:14 | XMS_ITS | Encounter Summary ---
Author Organization [employer] Address [address] [place] [address] 7t [place] [address] Care Team Providers Care Senior Benefits Analyst Name Role Phone Nadine Ham MD Primary Care Provide r Encounter Details Date Type Department Care Team (Late st Contact Info) Description 11/17/2022 Abstract [facility] [address] [place] [address] Nadine Ham MD [address] [place] [address] Social History Tobacco Use Types Packs/Day Years [...] on filedocumented in this encounter Care Teams Senior Benefits Analyst Relationship Specialty Start Date End Date Nadine Ham MD [address] [place] [address] PCP - General Family Medicine 07/23/18 documented as of this encounter
--- OUTSIDE RECORDS SUMMARY | 2024-12-12 17:14 | XMS_ITS | Encounter Summary ---
Author Organization [employer] Address [address] [place] [address] [address] [place] [address] Care Team Providers Care Communications Consultant Name Role Phone Nadine Ham MD Primary Care Provide r Encounter Details Date Type Department Care Team (Late st Contact Info) Description 10/19/2022 Telephone [facility] [address] [place], [place] [phone] Nadine Ham MD [address] [place] [address] Social History Tobacco Use Types Packs/Day Years [...] on filedocumented in this encounter Care Teams Communications Consultant Relationship Specialty Start Date End Date Nadine Ham MD [address] [place] [address] PCP - General Family Medicine 07/23/18 documented as of this encounter
--- OUTSIDE RECORDS SUMMARY | 2024-12-12 17:14 | XMS_ITS | Encounter Summary ---
Author Organization [employer] Address [address] [facility] 7t [place] [address] Care Team Providers Care Delivery Driver/Customer Service Name Role Phone Nadine Ham MD Primary Care Provide r Encounter Details Date Type Department Care Team (Late st Contact Info) Description 04/14/2023 Orders Only [facility] [address] [place] [address] Peace Murphy LPN Social History Tobacco Use [...] on filedocumented in this encounter Care Teams Delivery Driver/Customer Service Relationship Specialty Start Date End Date Nadine Ham MD [address] [place] [phone] PCP - General Family Medicine 07/23/18 documented as of this encounter
--- OUTSIDE RECORDS SUMMARY | 2024-12-12 17:14 | XMS_ITS | Encounter Summary ---
Author Organization [employer] Address [address] [facility] 7t [place] [address] Care Team Providers Care Behavioral Health Director Name Role Phone Nadine Ham MD Primary Care Provide r Encounter Details Date Type Department Care Team ([facility] st Contact Info) Description 07/25/2024 Orders Only [facility] [address] [place] [address] Nadine Ham MD [address] [place] [address] Social History Tobacco Use Types Packs/Day Years [...] documented as of this encounter Care Teams Behavioral Health Director Relationship Specialty Start Date End Date Nadine Ham MD [address] [place] [address] PCP - General Family Medicine 07/23/18 documented as of this encounter
== END 2024-12-12 14:55 | disposition home or self-care (01) ==
LOC: HO.HCS 14:32
PROVIDERS: PCP Internal Medicine; Visit Provider Internal Medicine
DX: R00.2 Palpitations (principal); I49.3 Ventricular premature depolarization
CPT/HCPCS: 93010; 99213

== ENCOUNTER → 2024-12-12 14:31 | Outpatient (BNVA) | payer MEDICAID, SELFPAY | PROVIDERS: PCP Internal Medicine; Visit Provider Internal Medicine | DX: R00.2 Palpitations (principal); I49.3 Ventricular premature depolarization | CPT/HCPCS: 93005; 99212 ==

== ENCOUNTER 2025-01-13 15:56 | Outpatient (REF) | payer MEDICAID, SELFPAY ==
--- OUTSIDE RECORDS SUMMARY | 2025-01-13 15:59 | XMS_ITS | Encounter Summary ---
Author Organization [employer] Address [address] [facility] 7t [place] [address] Care Team Providers Care Special Education Case Manager Name Role Phone Nadine Ham MD Primary Care Provide r Reason for Visit * Reason Onset Date Comments Appointment Request 11/27/2023 Encounter Details Date Type Department Care Team ([facility] st Contact Info) Description 11/27/2023 Telephone [facility] [address] [place], [place] [phone] Nadine Ham MD [address] [place], [place] [phone] Appointment Request Social History Tobacco Use Types [...] documented as of this encounter Care Teams Special Education Case Manager Relationship Specialty Start Date End Date Nadine Ham MD [address] [place] [address] PCP - General Family Medicine 07/23/18 documented as of this encounter
--- OUTSIDE RECORDS SUMMARY | 2025-01-13 15:59 | XMS_ITS | Encounter Summary ---
Author Organization [employer] Address [address] [facility] [address] [place] [address] Care Team Providers Care Senior Windows Engineer Name Role Phone Nadine Ham MD Primary Care Provide r Encounter Details Date Type Department Care Team (Late st Contact Info) Description 01/13/2025 3:40 PM EDT Office Visit [facility] [address] [place] [address] Dietary counseling; Exercise counseling; Class 2 severe obesity with serious comorbidity and body mass index (BMI) of 39.0 to 39.9 in adult, unspecified obesity type (CMS/HCC) Social History Tobacco Use Types Packs/Day Years [...] AM EDT documented as of this encounter Last Filed Vital Signs Vital Sign Reading Time Taken Comments Blood Pressure 150/98 01/13/2025 2:57 PM EDT Pulse 89 01/13/2025 2:52 PM EDT Temperature 36.5 ??C (97.7 ??F) 01/13/2025 2:52 PM ED T Respiratory Rate - - Oxygen Saturation 97% 01/13/2025 2:52 PM EDT Inhaled Oxygen Concentration - - Weight - - Height - - Body Mass Index - - documented in this encounter Plan of Treatment Not on file documented as of this encounter Visit Diagnoses Diagnosis Dietary counseling Dietary surveillance and counseling Exercise counseling Class 2 severe obesity with serious comorbidity and body mass index (BMI) of 39.0 to 39.9 in adult, unspecified obesity type (CMS/HCC) documented in this encounter Additional Health Concerns Assessment Noted Time PHQ-9 Depression Total Score: 0 06/15/20 23 11:13 AM EDT documented as of this encounter Care Teams Senior Windows Engineer Relationship Specialty Start Date End Date Nadine Ham MD [address] [place] [phone] PCP - General Family Medicine 07/23/18 documented as of this encounter
--- OUTSIDE RECORDS SUMMARY | 2025-01-13 15:59 | XMS_ITS | Encounter Summary ---
Author Organization [employer] Address [address] [facility] 7t [place] [address] Care Team Providers Care Property Developer Name Role Phone Nadine Ham MD Primary Care Provide r Encounter Details Date Type Department Care Team (Late st Contact Info) Description 01/18/2023 Abstract [facility] [address] [place] [address] Nadine Ham MD [address] [place] [address] Social History Tobacco Use Types Packs/Day Years [...] (11/16/2021 12:00 AM EDT) us Historical Provider MD IN CLINIC/BEDSIDE ORDERAB LES Final Result * Colonoscopy (10/07/2019) Colonoscopy Normal Normal 10/07/2019 Narrative Mariecl Gaytan - 10/07/2019 11:48 AM EST Recommended 10 year follow up( [facility] [place] ) Historical Provider HEALTH MAINTENANCE Final Result documented in this encounter Visit Diagnoses Not on filedocumented in this encounter Care Teams Property Developer Relationship Specialty Start Date End Date Nadine Ham MD [address] [place] [phone] PCP - General Family Medicine 07/23/18 documented as of this encounter
--- OUTSIDE RECORDS SUMMARY | 2025-01-13 15:59 | XMS_ITS | Encounter Summary ---
Author Organization [employer] Address [address] [facility] [address]t [place] [address] Care Team Providers Care Upsetter Name Role Phone Nadine Ham MD Primary Care Provide r Encounter Details Date Type Department Care Team ([facility] st Contact Info) Description 01/18/2023 Orders Only [facility] [address] [place] [address] Valarie Dee RN [address] [place] [address] Social History Tobacco Use Types Packs/Day Years [...] us Historical Provider HEALTH MAINTENANCE Final Result [facility] [address] [place] [address] [phone] documented in this encounter Visit Diagnoses Not on filedocumented in this encounter Care Teams Upsetter Relationship Specialty Start Date End Date Nadine Ham MD [address] [place] [address] PCP - General Family Medicine 07/23/18 documented as of this encounter
--- OUTSIDE RECORDS SUMMARY | 2025-01-13 15:59 | XMS_ITS | Encounter Summary ---
Author Organization [employer] Address [address] [place] [address] 7[address] [place] [address] Care Team Providers Care Emissions Inspector Name Role Phone Nadine Ham MD Primary Care Provide r Encounter Details Date Type Department Care Team (Late st Contact Info) Description 11/17/2022 Abstract [facility] [address] [place], [place] [phone] Nadine Ham MD [address] [place] [address] Social History Tobacco Use Types Packs/Day Years [...] on filedocumented in this encounter Care Teams Emissions Inspector Relationship Specialty Start Date End Date Nadine Ham MD [address] [place], [place] [phone] PCP - General Family Medicine 07/23/18 documented as of this encounter
--- OUTSIDE RECORDS SUMMARY | 2025-01-13 15:59 | XMS_ITS | Clinical Summary ---
Author Organization [employer] Address [address] [facility] 7[address] [place] [address] Care Team Providers Care Guest Service Representative Name Role Phone Nadine Ham MD Primary [...] mouth or throat Once daily. 500 mL 1 3 Active fluticasone (Flonase) 50 MCG/ACT nasal [...] hyperglycemia, without long-term current use of insulin ([facility]) Take 1 tablet (10 mg) by mouth in the morning. 30 tablet 11 4 Active lisinopril 40 MG tablet TAKE 1 TABLET BY MOUTH EVERY DAY 90 tablet 3 4 Active semaglutide (Ozempic) 2 MG/1.5ML solution pen-injectorIndi cations:Type 2 diabetes mellitus with hyperglycemia, without long-term current use of insulin ([facility]) Inject 0.25 mg under the skin 1 [...] 2 diabetes mellitus without complication, unspecified whether head boys golf coach insulin use ([facility]) TAKE 1 TABLET BY MOUTH TWICE DAILY [...] Encounters Date Type Department Care Team Description 01/13/2025 3:40 PM EDT Office Visit [facility] [address] [place] [phone] Dietary counseling; Exercise counseling; Class 2 severe obesity with serious comorbidity and body mass index (BMI) of 39.0 to 39.9 in adult, unspecified obesity type ([facility]) 2024 Orders Only GENERIC EXTERNAL DATA DEPARTMENT Provider, Generic External Data 11/15/2024 Population Health Risk Score [facility] Department [address] [place] [phone] Provider, Population Health Generic 10/31/2024 Telephone [facility] MEDICINE [address] [place] [phone] Nadine Ham MD nurse triage 10/29/2024 Orders Only GENERIC EXTERNAL DATA DEPARTMENT Provider, Generic External Data 10/16/2024 Refill [facility] [address] [place] [address] Nadine Ham MD Tooth infection; Type 2 diabetes mellitus with hyperglycemia, without long-term current use of insulin ([facility]); Fibromyalgia; Pain from Last 3 Months Immunizations Name Administration [...] 36.5 ??C (97.7 ??F) 01/13/2025 2:52 PM E DT Respiratory Rate 18 07/23/2024 3:25 PM EST Oxygen Saturation 97% 01/13/2025 2:52 PM EDT Inhaled Oxygen Concentration - - Weight 98.9 [...] EDT Narrative 2024 11:03 AM EDT ? [facility] ?[address] ?[place] [address] ? CT Scan Report ? Signed ? Patient: Silvio Hardy,Adeola ?M ?? R#: [id number] ? : 1970 ?Acct:[id number] ? Age/Sex: 54 / F ?ADM Date: 12/02/24 ? Loc: HO.ED ? Attending Dr: ? Ordering Physician: Alondra Munoz DO ?? Date of Service: 12/02/24 ?? Procedure(s): CT abdomen pelvis w IV con ?? Accession Number(s): [id number] ? cc: Alondra Munoz DO; [facility] ? Report Number: ?? [id number]: Total DLP = ??785.00 mGy-cm ?? EXAMINATION: [...] DD/ 1013 ? TD/TT: 12/02/24 1051 ? Hydraulic Lift Driver: ? Procedure Note Roz, Sendy - 2024 [facility] [address] [place] [address] CT Scan Report Signed Patient: Gonzalo De La Fuente R#: [id number] : 1970Acct:[id number] Age/Sex: 54 / FADM Date: 12/02/24 Loc: HO.ED Attending Dr: Ordering Physician: Alondra Munoz DO Date of Service: 12/02/24 Procedure(s): CT abdomen pelvis w IV con Accession Number(s): [id number] cc: Alondra Munoz DO; [facility] Report Number: [id number]: Total DLP = 785.00 mGy-cm EXAMINATION: CT [...] Irvin Maher MD 2024 11:01 AM EDT Dictated By: Irvin Maher MD Signed By: <Electronically signed by Irvin Maher MD in OV> 12/02/24 1101 DD/ 1013 TD/TT: 12/02/24 1051 Hydraulic Lift Driver: [facility] External Provider IMG CT PROCEDURES Final Result * (ABNORMAL) Urinalysis, Complete, with Reflex to Culture (2024 9:38 AM EDT) Color Urine Yellow [facility] Appearance Urine Clear [facility] PH 5.0 5.0 - 9.0 [facility] Glucose Urine UA >=1000(A) Negative mg/dL [facility] Urine Blood Negative Negative [facility] Specific Rotan - Urine >=1.030(H) 1.005 - 1.025 [facility] Urine Protein 30 (1+)(A) Neg-Trace mg/dL [facility] Urine Ketones Trace Negative mg/dL [facility] Nitrite Urine Negative Negative [facility] Leukocyte Esterase Urine Negative Negative [facility] RBC Urine 0-2 0 - 2 /HPF [facility] Urine WBC 0-5 0 - 5 /HPF [facility] Urine Squamous Epithelial Cell 3-5 0 - 2 /HPF [facility] Urine Bacteria None Seen None Seen [facility] Hyaline Casts, Urine 11-20 0 - 2 /LPF [facility] 2024 9:38 AM EDT 2024 9:40 AM EDT Narrative [facility] - 2024 9:54 AM EDT [id number], Clean Catch us Generic External Data Provider LAB URINE ORDERAB LES Final Result Performing Organization Address [facility] Co de Phone Number [facility] [address] [place] [phone] * High Sensitivity Troponin I (2024 9:30 AM EDT) Pathologist [facility] TROPONIN I HIGH SENSITIVITY 3.3 <3.5 - 17.0 ng/L [facility] Comment:The Shin high sens itivity Troponin-I results should beused in conjunction with other diagnostic information suchas ECG, clinical observations and information, and patientsymptoms to aid in the diagnosis of [place]. 2024 9:30 AM EDT 2024 9:33 AM EDT us Generic External Data Provider LAB BLOOD ORDERAB LES Final Result Performing Organization Address [facility] Co de Phone Number [facility] [address] [place] [phone] * Magnesium (2024 9:30 AM EDT) Magnesium 1.9 1.6 - 2.6 mg/dL [facility] 2024 9:30 AM EDT 2024 9:33 AM EDT us Generic External Data Provider LAB BLOOD ORDERAB LES Final Result Performing Organization Address [facility] Co de Phone Number [facility] [address] [place] [phone] * Lipase (2024 9:30 AM EDT) Pathologist [facility] Lipase 31 8 - 78 U/L [facility] 2024 9:30 AM EDT 2024 9:33 AM EDT Generic External Data Provider LAB BLOOD ORDERAB LES Final Result Performing Organization Address [facility] Co de Phone Number [facility] [address] [place] [phone] * Hepatic Function Panel (2024 9:30 AM EDT) [facility] Bilirubin, Total 0.3 0.0 - 1.0 mg/dL [facility] Bilirubin, Direct 0.1 0.0 - 0.5 mg/dL [facility] Aspartate Amino Transferase 26 5 - 31 U/L [facility] Alanine Aminotransferase 16 0 - 31 U/L [facility] Total Protein 7.5 6.5 - 8.0 g/dL [facility] Albumin Level 4.0 3.5 - 5.0 g/dL [facility] Alkaline Phosphatase 109 39 - 117 U/L [facility] 2024 9:30 AM EDT 2024 9:33 AM EDT Generic External Data Provider LAB BLOOD ORDERAB LES Final Result Performing Organization Address [facility] Co de Phone Number [facility] [address] [place] [phone] [phone] * (ABNORMAL) Basic Metabolic Panel (2024 9:30 AM EDT) [facility] Sodium 137 135 - 145 mmol/L [facility] Potassium 3.7 3.3 - 5.1 mmol/L [facility] Chloride 102 96 - 108 mmol/L [facility] Carbon Dioxide 25 22 - 29 mmol/L [facility] Anion Gap 14 12 - 20 [facility] Urea Nitrogen (BUN) 21(H) 9 - 16 mg/dL [facility] Creatinine, Serum 1.38 0.5 - 1.4 mg/dL [facility] Creatinine Clr Calc Pharmacy 51.9 [facility] Comment:Provided height and weight: 162.56 cm,96.7 kg.eGFR (calculated from the MDRD study equation) and eCrCl(calculated from the Cockcroft-Gault equation) are based ondifferent parameters and may not yield comparable results.If eCrCl result is absurd, please check patient'sheight/weight. Estimated Glomerular Filt Rate 40 [facility] Comment:Chronic Kidney Disea se: Estimated GFR < 60 mL/min/1.30y2Cauczb Kidney Disease: Estimated GFR < 15 mL/min/1.73m2 Glucose 281(H) 60 - 115 mg/dL [facility] Calcium 9.2 8.4 - 10.2 mg/dL [facility] 2024 9:30 AM EDT 2024 9:33 AM EDT us Generic External Data Provider LAB BLOOD ORDERAB LES Final Result [facility] [address] [place] [phone] [phone] * (ABNORMAL) SARS-CoV-2 RNA, Influenza A/B, and RSV RNA, Ql NAAT (2024 7:59 AM EDT) Influenza A PCR NEGATIVE Negative [facility] Influenza B PCR POSITIVE(A) Negative [facility] Resp Syncy Virus RNA Qual PCR NEGATIVE Negative [facility] SARS COV2 PCR NEGATIVE Negative [facility] Comment:All test results mus t be [...] use by authorized laboratories.Testing performed on the [employer] GeneXpert utilizingreal-time RT-PCR.All SARS CoV2 and positive influenza A/B results arereported to [facility]. 2024 7:59 AM EDT 2024 8:02 AM EDT us Generic External Data Provider LAB MICROBIOLOGY - GENERAL ORDERABLES Final Result [facility] [address] [place] [phone] * (ABNORMAL) CBC auto differential (2024 7:59 AM EDT) Only the most recent of2 resultswithin the time period is included. White Blood Count 10.0 4.8 - 10.8 X10*3/uL [facility] Red Blood Count 5.13 4.20 - 5.50 X10*6/uL [facility] Hemoglobin 12.4 12.0 - 16.0 g/dl [facility] Hematocrit 40.4 37.0 - 47.0 % [facility] Mean Corpuscular Volume 78.8(L) 80.0 - 98.0 fL [facility] Mean Corpuscular Hemoglobin 24.2(L) 27.0 - 33.0 pg [facility] Mean Corpuscular HGB Conc 30.7(L) 31.0 - 35.0 g/dl [facility] Red Cell Distribution Width 15.2 11.0 - 16.0 % [facility] Platelet Count 333 160 - 400 X10*3/uL [facility] Mean Platelet Volume 11.3 9.4 - 12.3 fL [facility] Neutrophils Percent Auto 71.2 45 - 73 % [facility] Imm Gran Pct Auto 0.4 0.0 - 0.4 % [facility] Lymphocytes Percent Auto 20.4 20 - 40 % [facility] Monocytes Percent Auto 6.7 2 - 11 % [facility] Eosinophils Percent Auto 0.9 0 - 4 % [facility] Basophils Percent Auto 0.4 0 - 2 % [facility] NRBC Pct Auto 0.0 0.0 - 0.2 /100WBC [facility] Neutrophils Absolute Auto 7.1 2.0 - 8.3 x10*3/uL [facility] Imm Gran Abs Auto 0.04(H) 0.00 - 0.03 X10*3/uL [facility] Lymphocytes Absolute Auto 2.0 1.2 - 4.9 X10*3/uL [facility] Monocytes Absolute Auto 0.7 0.1 - 1.2 X10*3/uL [facility] Eosinophils Absolute Auto 0.1 0.0 - 0.4 X10*3/uL [facility] Basophils Absolute Auto 0.0 0.0 - 0.2 X10*3/uL [facility] NRBC Abs Auto 0.000 0.0 - 0.012 X10*3/uL [facility] 2024 7:59 AM EDT 2024 8:02 AM EDT us Generic External Data Provider LAB BLOOD ORDERAB LES Final Result Performing Organization Address City/State/[facility] Co de Phone Number [facility] [address] [place] [phone] * XR Chest 1 View (2024 7:46 AM EDT) Anatomical Region Laterality Modality Chest Radiographic Dionna ging 2024 7:46 AM EDT Narrative 2024 8:22 AM EDT ? [facility] ?[address] ?[place] [address] ?XRay Report ? Signed ? Patient: Silvio Hardy,Adeola ?M ?? R#: [id number] ? : 1970 ?Acct:[id number] ? Age/Sex: 54 / F ?ADM Date: 03/31/25 ? Loc: HO.ED ? Attending Dr: ? Ordering Physician: Alondra Munoz DO ?? Date of Service: 12/02/24 ?? Procedure(s): XR chest 1V ?? Accession Number(s): [id number] ? cc: Alondra Munoz DO; [facility] ? EXAMINATION: ?? XR CHEST ? CLINICAL [...] ? 12/02/24 0819 ? DD/ ? TD/TT: 2413 ? Hydraulic Lift Driver: ? Procedure Note Jeraldnapoleondinaakenan, Image - 2024 [place] [address] XRay Report Signed Patient: Gonzalo De La Fuente R#: [id number] : 1970Acct:[id number] Age/Sex: 54 / FADM Date: 12/02/24 Loc: HO.ED Attending Dr: Ordering Physician: Alondra Munoz DO Date of Service: 12/02/24 Procedure(s): XR chest 1V Accession Number(s): [id number] cc: Alondra Munoz DO; [facility] EXAMINATION: XR CHEST CLINICAL INFORMATION: cough COMPARISON: [...] <Electronically signed by Sam Trivedi MDin OV> 12/02/24818 DD/ TD/TT: 12/02/24 08 Hydraulic Lift Driver: [facility] External Provider IMG XR PROCEDURES Final Result * (ABNORMAL) Glucose, Whole Blood (2024 7:38 AM EDT) Glucose, Whole Blood 350(HH) 60 - 115 mg/dL [facility] Comment:METER #: [id number] 2024 7:38 AM EDT 12/03/2024 11:04 AM EDT Generic External Data Provider LAB BLOOD ORDERAB LES Final Result Performing Organization Address City/State/[facility] Co de Phone Number [facility] [address] [place] [phone] * Albumin, Random Urine W/Creatinine (10/29/2024 1:15 PM EST) Creatinine, Urine 88.15 mg/dL [facility] Microalbumin Urine 5.0 mg/L [facility] Microalbum Creatinine Ratio Ur 5.6 <30 ug/mg cr [facility] Comment:Albumin/Creatinine R atio Reference Ranges: Normal: < 30 ug/mg creatinine Microalbuminuria: 30 - 300 ug/mg creatinineClinical Albuminuria: > 300 ug/mg creatinine Urine (Urine, Random) 10/29/2024 1:15 PM EST 10/29/2024 4:14 PM EST us Nadine Castellano MD LAB URINE ORDERABLES Final Result Performing Organization Address City/[facility] Co de Phone Number [facility] [address] [place] [phone] * (ABNORMAL) Lipid Panel, Standard (10/29/2024 1:15 PM EST) Triglycerides 181(H) <150 mg/dL [facility] Comment:Slight Lipemia.Betty able Triglyceride: less than 150 mg/dLBorderline High Triglyceride 150-199 mg/dLHigh Triglyceride: 200-499 mg/dLVery High Triglyceride: greater than or equal to 5OO mg/dL Cholesterol 172 <200 mg/dL [facility] Comment:Desirable Cholestero l: less than 200 mg/dLBorderline High Cholesterol: 200-239 mg/dLHigh Cholesterol: greater than 239 mg/dL LDL Cholesterol Calculated 80 <100 mg/dL [facility] Comment:Desirable LDL: less than 100 mg/dLNear Optimal/Above Optimal LDL: 110- 129 mg/dLBorderline High LDL: 130-159 mg/dLHigh LDL: 160-189 mg/dLVery High LDL: greater than or equal to 190 mg/dL HDL Cholesterol 56 >40 mg/dL [facility] Comment:Desirable HDL: great er than 40 mg/dL Note: This HDL assay may give artificially low results in patients with liver disease. Blood Venous blood specimen / Unknown 10/29/2024 1:15 PM EST 10/29/2024 4:08 PM EST us Nadine Castellano MD LAB BLOOD ORDERABLES Final Result Performing Organization Address City/[facility]/ZIP Co de Phone Number [facility] [address] [place] [phone] * (ABNORMAL) Comprehensive Metabolic Panel (10/29/2024 1:15 PM EST) Sodium 139 135 - 145 mmol/L [facility] Potassium 3.9 3.3 - 5.1 mmol/L [facility] Chloride 105 96 - 108 mmol/L [facility] Carbon Dioxide 26 22 - 29 mmol/L [facility] Anion Gap 12 12 - 20 [facility] Urea Nitrogen (BUN) 15 9 - 16 mg/dL [facility] Creatinine, Serum 0.92 0.5 - 1.4 mg/dL [facility] Estimated Glomerular Filt Rate >60 [facility] Comment:Chronic Kidney Disea se: Estimated GFR < 60 mL/min/1.73n3Swbcmh Kidney Disease: Estimated GFR < 15 mL/min/1.73m2 Glucose 227(H) 60 - 115 mg/dL [facility] Calcium 9.7 8.4 - 10.2 mg/dL [facility] Bilirubin, Total 0.2 0.0 - 1.0 mg/dL [facility] Aspartate Amino Transferase 22 5 - 31 U/L [facility] Alanine Aminotransferase 39(H) 0 - 31 U/L [facility] Total Protein 8.3(H) 6.5 - 8.0 g/dL [facility] Albumin Level 4.2 3.5 - 5.0 g/dL [facility] Alkaline Phosphatase 139(H) 39 - 117 U/L [facility] Blood Venous blood specimen / Unknown 10/29/2024 1:15 PM EST 10/29/2024 4:08 PM EST us Nadine Castellano MD LAB BLOOD ORDERABLES Final Result [facility] [address] [place] [phone] * (ABNORMAL) POCT HGB A1C (07/23/2024 3:29 PM EST) Hemoglobin A1C 8.1(A) 4.0 - 6.0 % QC Media Lot # [id number] Lot# Expiration Date [id number] Blood 07/23/2024 3:29 PM EST us Nadine Guy Josee Castellano MD POINT OF CARE TEST EN TER/EDIT ORDERABLES Final Result * BI Mammogram Screening Tomosynthesis Bilateral (03/14/2024 2:36 PM EDT) Anatomical Region Laterality Modality Breast Bilateral Mammography 03/14/2024 2:36 PM EDT Narrative 04/09/2024 8:56 AM EDT ? [facility] ? [address] ?[place] [address] ? Mammography Report ? Signed ? Patient: Adeola De La Fuente ?M ?? R#: [id number] ? : 1970 ?Acct:[id number] ? Age/Sex: 53 / F ?ADM Date: 03/14/24 ? Loc: HO.MAMMO ? Attending Dr: Nadine Castellano MD ? Ordering Physician: Nadine Ham MD ?Results: ?? 2Benign Findings ? Date of Service: 03/14/24 ?Follow Up: 1 Year From Orig ?? inal Mammogram ? Procedure(s): MM tomosynthesis screening BI ?? Accession Number(s): [id number] ? cc: Nadine Ham MD ? EXAMINATION: [...] 0852 ? DD/ 1436 ? TD/TT: ? Hydraulic Lift Driver: ? Procedure Note Roz, Image - 04/09/2024 [facility] [address] [place] [address] Mammography Report Signed Patient: Gonzalo De La Fuente R#: [id number] : 1970Acct:[id number] Age/Sex: 53 / FADM Date: 03/14/24 Loc: OSMIN Attending Dr: Nadine Castellano MD Ordering Physician: Nadine Ham MDResults: 2Benign Findings Date of Service: 03/14/24Follow Up: 1 Year From Orig inal Mammogram Procedure(s): MM tomosynthesis screening BI Accession Number(s): [id number] cc: Nadine Ham MD EXAMINATION: MM SCREENING [...] in OV> 04/09/24 0852 DD/ 1436 TD/TT: Hydraulic Lift Driver: Nadine Castellano MD IMG BI PROCEDURES Fin al Result * (ABNORMAL) HPV mRNA E6/E7 w/Reflex to HPV Genotypes 16, 18/45 (02/01/2023 3:18 PM EDT) HPV nRNA E6/E7 Detected(A ) Not Detected [facility] Comment:Methodology: Transcr iption-Mediated AmplificationThis assay detects E6/E7 viral messenger RNA (mRNA) from 14high-risk HPV types (16,18,31,33,35,39,45,51,52,56,58,59,66,68).Cervical sources are required for HPV testing.If a vaginal source from a patient who has had atotal hysterectomy with removal of cervix wassubmitted, please contact the testing laboratoryfor alternative testing options.For additional information, please refer tohttp://education.[employer]way Safety Step/faq/XVI950l1(This link if provided for information/educational purposes only.)THIS TEST WAS PERFORMED AT:[email or web address] [address] [id number] STAUFFER MD HPV 16 RNA NOT DETECTED NOT DETECTED [facility] HPV 18/45 RNA NOT DETECTED NOT DETECTED [facility] Comment:Methodology: Transcr iption Mediated AmplificationCervical sources are required for HPV testing.If a vaginal source from a patient who has had atotal hysterectomy with removal of cervix wassubmitted, please contact the testing laboratoryfor alternative testing options.THIS TEST WAS PERFORMED AT:[email or web address] [address] [id number] STAUFFER MD 02/01/2023 3:18 PM EDT 02/02/2023 8:30 AM EDT [facility] External Provider LAB CYT OLOGY ORDERABLES Final Result Performing Organization Address City/State/[facility] Co de Phone Number [facility] [address] [place] [phone] * Pap Smear (02/01/2023 3:18 PM EDT) 02/01/2023 3:18 PM EDT 02/02/2023 8:30 AM EDT Narrative [facility] - 02/22/2023 6:19 PM EDT ----- ------- Name: Adeola De La Fuente ? Age/Sex: 52/F ? : 1970 Unit#: [id number] ?? Attend Dr: Murali Leon MD ?Re02/01/23 ?Status: DEP REF ? Location: HO.LNP ?Disch: ? ----- ------- SPEC : [id number] ? RECD: 02/02/23 ? STATUS: ??SOUT ? REQ NUM: [id number] ? MIROSLAVA: 02/01/23-9447 ? SUBM DR: Murali Leon MD ? [...] Not Detected ? HPV testing performed by [facility], [place], [place]. ??See reference laboratory ?? portion of the EMR for entire report. ?Clinical Information LMP: Postmenopausal Previous PAP test: 2020, MANISHA I ? Material Received ?? ThinPrep-Cervical Copies To: ?? Nadine Ham MD ?? [address] [facility] ?? [place] [address] ?? [phone] ?? Murali Leon MD ?? [address] [place] [facility] ?? [place] [address] ?? [phone] ----- ------- Signed (signature on file) [place] 02/22/231818 ? ----- ------- ? END OF REPORT ? [facility] External Provider LAB CYT OLOGY ORDERABLES Final Result [facility] [address] [place] [address] [phone] * Colonoscopy (10/07/2019) Colonoscopy Normal Normal 10/07/2019 Maricel Green - 10/07/2019 11:48 AM EST Recommended 10 year follow up( [facility] ) Historical Provider MD HEALTH MAINTENANCE Final Result from Last 3 Months or Most Recently Relevant to Health Maintenance Insurance [facility] C[place] AD[place] Care Teams Guest Service Representative Relationship Specialty Start Date End Date Nadine Ham MD [address] [place] [address] PCP - General Family Medicine 07/23/18
--- OUTSIDE RECORDS SUMMARY | 2025-01-13 15:59 | XMS_ITS | Encounter Summary ---
Author Organization [employer] Address [address] [facility] 7t [place] [address] Care Team Providers Care Curator Of Photography And Prints Name Role Phone Nadine Ham MD Primary Care Provide r Encounter Details Date Type Department Care Team ([facility] st Contact Info) Description 07/25/2024 Orders Only [facility] [address] [place] [address] Nadine Ham MD [address] [place] [address] Social History Tobacco Use Types Packs/Day Years [...] documented as of this encounter Care Teams Curator Of Photography And Prints Relationship Specialty Start Date End Date Nadine Ham MD [address] [place] [phone] PCP - General Family Medicine 07/23/18 documented as of this encounter
--- OUTSIDE RECORDS SUMMARY | 2025-01-13 15:59 | XMS_ITS | Encounter Summary ---
Author Organization [employer] Address [address] [facility] [address] [place] [address] Care Team Providers Care News Wire Photo Operator Name Role Phone Nadine Ham MD Primary Care Provide r Reason for Visit * Reason Comments Med Refill Encounter Details Date Type Department Care Team ([facility] st Contact Info) Description 10/15/2023 Refill [facility] [address] [place] [address] Doreen Marques MD [address] [place] [address] Essential hypertension Social History Tobacco Use Types [...] documented as of this encounter Care Teams News Wire Photo Operator Relationship Specialty Start Date End Date Nadine Ham MD [address] [place] [phone] PCP - General Family Medicine 07/23/18 documented as of this encounter
--- OUTSIDE RECORDS SUMMARY | 2025-01-13 15:59 | XMS_ITS | Encounter Summary ---
Author Organization [employer] Address [address] [facility] [address]t [place] [address] Care Team Providers Care Box Worker Name Role Phone Nadine Ham MD Primary Care Provide r Encounter Details Date Type Department Care Team (Late st Contact Info) Description 02/02/2023 Orders Only [facility] MED & PEDS [address] [place] [address] Peace [place] LPN Social History Tobacco Use [...] on filedocumented in this encounter Care Teams Box Worker Relationship Specialty Start Date End Date Nadine Ham MD [address] [place] [phone] PCP - General Family Medicine 07/23/18 documented as of this encounter
--- OUTSIDE RECORDS SUMMARY | 2025-01-13 15:59 | XMS_ITS | Encounter Summary ---
Author Organization [employer] Address [address] [facility] 7t [place] [address] Care Team Providers Care Solution Engineer Name Role Phone Nadine Ham MD Primary Care Provide r Encounter Details Date Type Department Care Team (Late st Contact Info) Description 03/24/2023 Orders Only [facility] MEDICINE [address] [place] [address] Jessica Groves LPN Social History Tobacco Use [...] on filedocumented in this encounter Care Teams Solution Engineer Relationship Specialty Start Date End Date Nadine Ham MD [address] [place] [address] PCP - General Family Medicine 07/23/18 documented as of this encounter
--- OUTSIDE RECORDS SUMMARY | 2025-01-13 15:59 | XMS_ITS | Encounter Summary ---
Author Organization [employer] Address [address] [facility] 7t [place] [address] Care Team Providers Care Animal Bounty Hunter Name Role Phone Nadine Ham MD Primary Care Provide r Encounter Details Date Type Department Care Team (Late st Contact Info) Description 10/03/2022 Orders Only [facility] CHC MED & PEDS [address] [place] [address] Peace Murphy LPN Social History Tobacco Use [...] on filedocumented in this encounter Care Teams Animal Bounty Hunter Relationship Specialty Start Date End Date Nadine Ham MD [address] [place] [id number] PCP - General Family Medicine 07/23/18 documented as of this encounter
--- OUTSIDE RECORDS SUMMARY | 2025-01-13 15:59 | XMS_ITS | Encounter Summary ---
Author Organization [employer] Address [address] [place] [address] 7t [place] [address] Care Team Providers Care Machine Washer Name Role Phone Nadine Ham MD Primary Care Provide r Encounter Details Date Type Department Care Team (Late st Contact Info) Description 10/19/2022 Telephone [facility] MEDICINE [address] [place], [place] [phone] Nadine Ham MD [address] [place] [address] Social History Tobacco Use Types Packs/Day Years [...] on filedocumented in this encounter Care Teams Machine Washer Relationship Specialty Start Date End Date Nadine Ham MD [address] [place], [place] [phone] PCP - General Family Medicine 07/23/18 documented as of this encounter
--- OUTSIDE RECORDS SUMMARY | 2025-01-13 15:59 | XMS_ITS | Encounter Summary ---
Author Organization [employer] Address [address] [facility] 7t [place] [address] Care Team Providers Care Knotter Name Role Phone Nadine Ham MD Primary Care Provide r Encounter Details Date Type Department Care Team ([facility] st Contact Info) Description 07/13/2023 Orders Only [facility] MEDICINE [address] [place] [address] Nadine Ham MD [address] [place] [address] Social History Tobacco Use Types Packs/Day Years [...] documented as of this encounter Care Teams Knotter Relationship Specialty Start Date End Date Nadine Ham MD [address] [place] [id number] PCP - General Family Medicine 07/23/18 documented as of this encounter
--- OUTSIDE RECORDS SUMMARY | 2025-01-13 15:59 | XMS_ITS | Encounter Summary ---
Author Organization [employer] Address [address] [facility] 7t [place] [address] Care Team Providers Care Hot End Operator Name Role Phone Nadine Ham MD Primary Care Provide r Encounter Details Date Type Department Care Team (Late st Contact Info) Description 04/14/2023 Orders Only [facility] CHC MED & PEDS [address] [place] [address] Peace Murphy LPN Social History Tobacco Use [...] on filedocumented in this encounter Care Teams Hot End Operator Relationship Specialty Start Date End Date Nadine Ham MD [address] [place] [id number] PCP - General Family Medicine 07/23/18 documented as of this encounter
--- OUTSIDE RECORDS SUMMARY | 2025-01-13 15:59 | XMS_ITS | Encounter Summary ---
Author Organization [employer] Address [address] [facility] 7t [place] [address] Care Team Providers Care Bilingual Executive Assistant Name Role Phone Nadine Ham MD Primary Care Provide r Reason for Visit * Reason Comments Med Refill Encounter Details Date Type Department Care Team ([facility] st Contact Info) Description 10/15/2023 Refill [facility] MEDICINE [address] [place] [address] Emile Roldan MD [address] [place] [address] Type 2 diabetes mellitus without complication, unspecified whether skilled nursing insulin use ([facility]) Social History Tobacco Use Types Packs/Day Years [...] 2 diabetes mellitus without complication, unspecified whether emt intermediate insulin use ([facility]) documented in this encounter Additional Health Concerns Assessment Noted Time PHQ-9 Depression Total Score: 0 06/15/20 23 11:13 AM EDT documented as of this encounter Care Teams Bilingual Executive Assistant Relationship Specialty Start Date End Date Nadine Ham MD [address] [place] [address] PCP - General Family Medicine 07/23/18 documented as of this encounter
[2025-01-13 17:49] LABS: Alanine Aminotransferase 14 U/L (0-31); Albumin Level 4.2 g/dL (3.5-5.0); Alkaline Phosphatase 120 U/L (39-117); Anion Gap 13 (12-20); Aspartate Amino Transferase 19 U/L (5-31); Bilirubin Total 0.1 mg/dL (0.0-1.0); Blood Urea Nitrogen 21 mg/dL (9-16); Calcium 9.5 mg/dL (8.4-10.2); Carbon Dioxide 25 mmol/L (22-29); Chloride 104 mmol/L (96-108); Estimated Glomerular Filt Rate > 60; Glucose Random 141 mg/dL (60-115); Potassium 3.8 mmol/L (3.3-5.1); Sodium 138 mmol/L (135-145); Total Protein 7.7 g/dL (6.5-8.0)
== END 2025-01-13 15:57 | disposition home or self-care (01) ==
LOC: HO.HHCL 15:56
PROVIDERS: Visit Provider Internal Medicine Medical Oncology
DX: D64.9 Anemia, unspecified (principal)
CPT/HCPCS: 36415; 80053

== ENCOUNTER 2025-02-06 14:18 | Outpatient (AMB) | payer MEDICAID, SELFPAY ==
--- NOTE | 2025-02-06 14:29 | A.OFFVIS_ITS ---
Vital Signs 02/06/25 14:37 Height 5 ft 4 in Weight 212 lb BMI 36.4 Intake Visit Reasons: Pelvic pain Venue Attendant Required: Yes Venue Attendant Language: Bone Cooking Operator Services: Venue Attendant Present (in person) Venue Attendant Name: TIMOTHY Finnegan Information Interpreted: non-clinical & clinical Collarette Separator: Collarette Separator Present (TIMOTHY Finnegan) Accompanied by: Self / Same As Patient Allergies No Known Allergies [No Known Allergies*] Allergy (Verified 02/06/25 14:30) HPI Comments Details: The patient is presenting with LLQ pain started 1-2 months ago. It's intermitt ent in nature lasting few seconds and occurs 3x/day. it is associated with constipation, no dysuria, no frequency incontinence, no n/v, no feverishness, no vaginal discharge. In addition the patient is complaining of vulvovaginal itching over the last few weeks 12/02/2024 CT scan of abdomen and pelvis showed the following: IMPRESSION: 1. Diverticulosis of the descending colon, without evidence of diverticulitis. 2. Small hiatal hernia. 3. Subcentimeter left renal angiomyolipoma.: Pelvic viscera portion of the CT scan was unremarkable [facility] Medical History Dysplasia of cervix, low grade (MANISHA 1) Hypothyroid GERD (gastroesophageal reflux disease) Urge incontinence HTN (hypertension) Hemorrhoids Diabetes Surgical History Hx of colonoscopy History of Family History Family/Other Breast cancer Maternal Aunt Breast cancer Maternal Aunt Thyroid disease Father HTN (hypertension) Mother Hernia Age related osteoporosis Social History Household Members Other:: daughter Housing: Apartment Alcohol intake: former Patient Tobacco Use Status: Former Tobacco user service: No Current occupational status: employed Sexual orientation: Straight/Heterosexual Gender identity: Female Review of Systems Const All systems reviewed & are unremarkable except as noted in HPI and below Physical Exam Vital Signs: BMI result Body Mass Index 36.4 General: Yes no CVA tenderness External Female Exam: normal external appearance and normal appearance of the urethra Speculum Exam - Vagina: normal appearance of the vagina, normal palpation, no lesions and no masses Speculum Exam - Cervix: normal appearance of the cervix, normal palpation, no lesions, no masses and nontender Bimanual exam- vagina & uterus: normal bimanual exam, normal palpation, uterine size normal, normal palpation, uterine shape normal, No Cervical tenderness present and non-tender Bimanual Exam- Adnexa, other: normal adnexae Back/Spine/Pelvis Back: no CVA tenderness Results AMB Urinalysis Dipstick UR Leukocytes Negative Last Edit by Meera Penn, CORONER FORENSIC TECHNICIAN on 02/06/25 14:37 UR Nitrite Negative Last Edit by Meera Penn, CORONER FORENSIC TECHNICIAN on 02/06/25 14:37 UR Urobilinogen Normal Last Edit by Meera Penn, CORONER FORENSIC TECHNICIAN on 02/06/25 14:37 UR Protein Negative Last Edit by Meera Penn, CORONER FORENSIC TECHNICIAN on 02/06/25 14:37 UR Ph 6.0 Last Edit by Meera Millerero, CORONER FORENSIC TECHNICIAN on 02/06/25 14:37 UR Blood Negative Last Edit by Meera Penn, CORONER FORENSIC TECHNICIAN on 02/06/25 14:37 UR Specific [place] 1.015 Last Edit by Meera Millerero, CORONER FORENSIC TECHNICIAN on 02/06/25 14:37 UR Ketone Negative Last Edit by Meera Penn, CORONER FORENSIC TECHNICIAN on 02/06/25 14:37 UR Bilirubin Negative Last Edit by Meera Millerero, CORONER FORENSIC TECHNICIAN on 02/06/25 14:37 UR Glucose Negative Last Edit by Meera Penn, CORONER FORENSIC TECHNICIAN on 02/06/25 14:37 Results Reviewed Results Reviewed: Laboratory Last Values Urine pH (Clinic) 6.0 02/06/25 14:35 Specific [place] (Clinic) 1.015 02/06/25 14:35 Ur Protein (Clinic) Negative 02/06/25 14:35 Ur Ketones (Clinic) Negative 02/06/25 14:35 Urine Blood (Clinic) Negative 02/06/25 14:35 Urine Nitrite Negative 02/06/25 14:35 Urine Bilirubin (Clinic) Negative 02/06/25 14:35 Urobilinogen (Clinic) Normal 02/06/25 14:35 Leukocyte Esterase (Clinic) Negative 02/06/25 14:35 Urine Glucose (Clinic) Negative 02/06/25 14:35 Assessment & Plan Assessment & Plan (1) Pelvic pain: Code(s): R10.2 - Pelvic and perineal pain Category: Medical Plan: Urine dip done in the office was negative. GC and chlamydia taken and pelvic ultrasound ordered. Discussed with the patient the differential diagnosis of pelvic pain including but not limited to adnexal, uterine masses, pelvic infections (PID), GI the (Irritable bowel syndrome, diverticulitis, others), musculoskeletal, myofascial pain abdominal wall , adhesions, endometriosis, psychological and others causes. Will check results and treat accordingly. Recommended to the patient to go to emergency room to be evaluated for possible diverticulitis. All questions answered, the patient verbalized understanding. Instructed the patient to schedule an ultrasound and a follow-up appointment in 2 weeks. All questions answered, the patient verbalized understanding and agreed with the plan. (2) Vulvovaginitis: Code(s): N76.0 - Acute vaginitis Category: Medical Plan: GC/CT, Bacterial Vaginosis panel taken, Terazol 0.8% q.h.s. for 3 days was sent to the patient's pharmacy. The patient was instructed to call if symptoms don't improve in 48 hours. Orders: Orders Bacterial Vaginosis Panel Today N76.0 - Acute vaginitis AMB Urinalysis Dipstick Today R10.2 - Pelvic and perineal pain CT NG by PCR Today N76.0 - Acute vaginitis US pelvic and transvaginal Today R10.2 - Pelvic and perineal pain Medications: New terconazole 0.8% 1 appful vaginal BEDTIME 3 days 20 grams 0RF Coding Level of Care Code Est Pt Level 3 (54951) Diagnoses Pelvic pain R10.2 Vulvovaginitis N76.0
[2025-02-06 14:37] VITALS: BMI 36.4
--- OUTSIDE RECORDS SUMMARY | 2025-02-06 16:57 | XMS_ITS | Encounter Summary ---
Author Organization [employer] Address [address] [facility] 7t [place] [address] Care Team Providers Care Petal Cutter Name Role Phone Nadine Ham MD Primary Care Provide r Reason for Visit * Reason Comments Med Refill Encounter Details Date Type Department Care Team (Late st Contact Info) Description 10/15/2023 Refill [facility] MEDICINE [address] [place] [address] Emile Roldan MD [address] [place], [place] [phone] Type 2 diabetes mellitus without complication, unspecified whether supervisor intermediates insulin use ([facility]) Social History Tobacco Use Types Packs/Day Years [...] 2 diabetes mellitus without complication, unspecified whether shelter insulin use ([facility]) documented in this encounter Additional Health Concerns Assessment Noted Time PHQ-9 Depression Total Score: 0 06/15/20 23 11:13 AM EDT documented as of this encounter Care Teams Petal Cutter Relationship Specialty Start Date End Date Nadine Ham MD [address] [place] [address] PCP - General Family Medicine 07/23/18 documented as of this encounter
== END 2025-02-06 15:09 | disposition home or self-care (01) ==
LOC: HO.HWS 14:18
PROVIDERS: PCP Internal Medicine; Visit Provider Obstetrics & Gynecology
DX: R10.2 Pelvic and perineal pain (principal); N76.0 Acute vaginitis
CPT/HCPCS: 99213

== ENCOUNTER 2025-02-06 14:18 | Outpatient (REF) | payer MEDICAID, SELFPAY ==
[2025-02-06 18:14] LABS: Bacterial Vaginosis PCR NEGATIVE (Negative); Candida Group PCR NOT DETECTED (Not Detect); Candida glab krusei PCR NOT DETECTED (Not Detect); Trichomonas vaginalis PCR NOT DETECTED (Not Detect)
[2025-02-06 18:45] LABS: CT PCR NOT DETECTED (Not Detect.); NG PCR NOT DETECTED (Not Detect.)
== END 2025-02-06 14:19 | disposition home or self-care (01) ==
LOC: HO.LNP 14:18
PROVIDERS: PCP Internal Medicine; Visit Provider Obstetrics & Gynecology
DX: N76.0 Acute vaginitis (principal); R10.2 Pelvic and perineal pain
CPT/HCPCS: 81002; 81515; 87491; 87591; 99212

== ENCOUNTER → 2025-02-19 13:53 | Outpatient (REF) | payer MEDICAID, SELFPAY ==
--- OUTSIDE RECORDS SUMMARY | 2025-02-19 15:55 | XMS_ITS | Encounter Summary ---
Author Organization [employer] Address [address] [facility] 7t [place] [address] Care Team Providers Care Paper Processing Machine Helper Name Role Phone Nadine Ham MD Primary Care Provide r Reason for Visit * Reason Comments Med Refill Encounter Details Date Type Department Care Team (Late st Contact Info) Description 10/15/2023 Refill [facility] MEDICINE [address] [place] [address] Emile Roldan MD [address] [place], [place] [phone] Type 2 diabetes mellitus without complication, unspecified whether [facility] insulin use ([facility]) Social History Tobacco Use Types Packs/Day Years [...] 2 diabetes mellitus without complication, unspecified whether manager terminal insulin use ([facility]) documented in this encounter Additional Health Concerns Assessment Noted Time PHQ-9 Depression Total Score: 0 06/15/20 23 11:13 AM EDT documented as of this encounter Care Teams Paper Processing Machine Helper Relationship Specialty Start Date End Date Nadine Ham MD [address] [place] [address] PCP - General Family Medicine 07/23/18 documented as of this encounter
== END ==
LOC: HO.SL 13:53
PROVIDERS: PCP Internal Medicine; Visit Provider Internal Medicine
DX: G47.33 Obstructive sleep apnea (adult) (pediatric) (principal)
CPT/HCPCS: 95806

== ENCOUNTER → 2025-02-19 14:02 | Outpatient (BNV) | payer MEDICAID, SELFPAY | PROVIDERS: PCP Internal Medicine; Visit Provider Internal Medicine | DX: R06.83 Snoring (principal) | CPT/HCPCS: 95806 ==

== ENCOUNTER 2025-03-12 15:43 | Outpatient (REF) | payer MEDICAID, SELFPAY ==
--- NOTE | ~2025-03-12 | US_ITS ---
EXAMINATION: US PELVIS TRANSABDOMINAL AND TRANSVAGINAL HISTORY: R10.2 - Pelvic and perineal pain COMPARISON: Correlation is made with an unenhanced CT of the pelvis dated 02/10/2022. TECHNIQUE: Transabdominal and endovaginal real-time 2D rodriguez-scale ultrasound was performed. FINDINGS: Uterus: The uterus is normal in size, measuring 10.1 x 3.1 x 4.7 cm. Myometrium has a normal echotexture. No fibroids are identified. Endometrium: The endometrial stripe measures 5 mm in thickness. Right ovary: The right ovary measures 2.9 x 1.5 x 1.6 cm. The right ovary is normal in size and echotexture. Left ovary: The left ovary measures 2.1 x 1.7 x 2.1 cm. The left ovary is normal in size and echotexture. Pelvic fluid: none. US/US pelvic and transvaginal IMPRESSION: Unremarkable pelvic ultrasound. Electronically signed by: Irvin Maher MD 03/13/2025 07:16 AM EDT
== END 2025-03-12 15:44 | disposition home or self-care (01) ==
LOC: HO.US 15:43
PROVIDERS: PCP Internal Medicine; Visit Provider Obstetrics & Gynecology
DX: R10.2 Pelvic and perineal pain (principal)
CPT/HCPCS: 76830; 76856

== ENCOUNTER → 2025-03-12 15:46 | Outpatient (BNV) | payer MEDICAID, SELFPAY | PROVIDERS: PCP Internal Medicine; Visit Provider Radiology Diagnostic Radiology | DX: R10.2 Pelvic and perineal pain (principal) | CPT/HCPCS: 76830; 76856 ==

== ENCOUNTER 2025-03-20 14:29 | Outpatient (REF) | payer MEDICAID, SELFPAY | END 2025-03-20 14:30 | disposition home or self-care (01) | LOC: HO.MAMMO 14:29 | PROVIDERS: PCP Internal Medicine; Visit Provider Internal Medicine | DX: Z12.31 Encounter for screening mammogram for malignant neoplasm of breast (principal) | CPT/HCPCS: 77063; 77067 ==

== ENCOUNTER → 2025-03-20 14:30 | Outpatient (BNV) | payer MEDICAID, SELFPAY | PROVIDERS: PCP Internal Medicine; Visit Provider Internal Medicine | DX: Z12.31 Encounter for screening mammogram for malignant neoplasm of breast (principal) | CPT/HCPCS: 77063; 77067 ==

== ENCOUNTER 2025-04-24 15:22 | Outpatient (AMB) | payer MEDICAID, SELFPAY ==
--- OUTSIDE RECORDS SUMMARY | 2025-04-24 15:24 | XMS_ITS | Encounter Summary ---
Author Organization [employer] Address [address] [facility] 7t [place] [address] Care Team Providers Care Statistical Analyst Name Role Phone Nadine Ham MD Primary Care Provide r Reason for Visit * Reason Onset Date Comments letter 04/03/2025 Encounter Details Date Type Department Care Team ([facility] st Contact Info) Description 04/03/2025 Telephone [facility] MEDICINE [address] [place], [place] [phone] Nadine Ham MD [address] [place], [place] [phone] letter Social History Tobacco Use Types Packs/Day Years [...] encounter Miscellaneous Notes * Telephone Encounter - Leilani Oakes RN - 04/04/2025 10:37 AM EDT TC placed to patient [phone] to inform PCP sent Trulicity 0.75mg to the pharmacy. Patient verbalized understanding. Patient to f/u PRN. Please review if Trulicity should be increased (patient was on 0.75mg before). Thank you * Telephone Encounter - Leilani Oakes RN - 04/03/2025 4:16 PM EDT TC placed to patient [phone] in regards to below message. Patient reports she received a letter in regards to her Trulicity. Patient is unsure what the letter is stating. RN called [facility] pharmacy who reports the patient obtained the RX on 03/11/25 with no insurance issues and they need a new RX asthe patient does not have any refills left. Patient informed RN will send message to PCP to review dose of Trulicity and send refill. Patient verbalized understanding. Patient to f/u PRN. * Telephone Encounter - Tl Bundy - 04/03/2025 3:30 PM EDT Tc from pt requesting for pcp to send a letter to the insurance stating that pt is still taking Trulicity. Any questions contact pt at [phone] documented in this encounter Plan of Treatment Upcoming Encounters Date Type Department Care Team (Late st Contact Info) Description 05/08/2025 1:45 PM EDT Office Visit [facility] MEDICINE [address] [place] [address] Nadine Ham MD [address] [place] [address] documented as of this encounter Visit Diagnoses Not on filedocumented in this encounter Additional Health Concerns Assessment Noted Time PHQ-9 Depression Total Score: 0 06/15/20 23 11:13 AM EDT documented as of this encounter Care Teams Statistical Analyst Relationship Specialty Start Date End Date Nadien Ham MD [address] [place] [phone] PCP - General Family Medicine 07/23/18 documented as of this encounter
--- NOTE | 2025-04-24 15:26 | A.OFFVIS_ITS ---
Vital Signs 04/24/25 15:29 Height 5 ft 4 in Weight 212 lb BMI 36.4 Intake Visit Reasons: Us follow up Mental Health Program Specialist Required: Yes Mental Health Program Specialist Language: Primer Assembler Services: Mental Health Program Specialist Present (in person) Mental Health Program Specialist Name: Meera AGUIRRE Information Interpreted: non-clinical & clinical Accompanied by: Self / Same As Patient Allergies No Known Allergies (No Known Allergies*) Allergy (Verified 04/24/25 15:30) HPI Comments Details: Presenting for follow-up regarding her pelvic pain. The patient is doing well. The pain has resolved The following workup was done so far: GC/CT negative. Last visit urine dip was negative. Pelvic ultrasound showed the following: Uterus: The uterus is normal in size, measuring 10.1 x 3.1 x 4.7 cm. Myometrium has a normal echotexture. No fibroids are identified. Endometrium: The endometrial stripe measures 5 mm in thickness. Right ovary: The right ovary measures 2.9 x 1.5 x 1.6 cm. The right ovary is normal in size and echotexture. Left ovary: The left ovary measures 2.1 x 1.7 x 2.1 cm. The left ovary is normal in size and echotexture. Pelvic fluid: none. PFSH Medical History Dysplasia of cervix, low grade (MANISHA 1) Hypothyroid GERD (gastroesophageal reflux disease) Urge incontinence HTN (hypertension) Hemorrhoids Diabetes Surgical History Hx of colonoscopy History of Family History Family/Other Breast cancer Maternal Aunt Breast cancer Maternal Aunt Thyroid disease Father HTN (hypertension) Mother Hernia Age related osteoporosis Social History Household Members Other:: daughter Housing: Apartment Alcohol intake: former Patient Tobacco Use Status: Former Tobacco user service: No Current occupational status: employed Sexual orientation: Straight/Heterosexual Gender identity: Female Review of Systems Const All systems reviewed & are unremarkable except as noted in HPI and below Reports as per HPI and Reports no additional complaints GI Reports no additional complaints Reports no additional complaints Assessment & Plan Assessment & Plan (1) Pelvic pain: Comment: resolved Code(s): R10.2 - Pelvic and perineal pain Category: Medical Plan: Discussed with the patient the results of the workup done including negative GC/chlamydia, urine dip, and pelvic ultrasound. Differential diagnosis of carpentry foreman causes that have not be ruled out yet include but not limited to endometriosis, pelvic adhesions , or others. Recommended for the patient if her pelvic pain recurs to see her PCP for further workup for non carpentry foreman causes; if the all the results are negative and the patient's pelvic pain is persistent, instructions given to patient to call back for further testing. Meanwhile, instructions were given the patient to go to emergency room or call in case of fever above 100.4, heavy vaginal bleeding, persistence or worsening of her pelvic pain. All questions answered, the patient verbalized understanding. (2) Endometrial thickening on ultrasound: Code(s): R93.89 - Abnormal findings on diagnostic imaging of other specified body structures Category: Medical Plan: Discussed with the patient endometrial thickness above 4 mm in menopause , the differential diagnosis of a thickened endometrium includes but not limited to endometrial polyp, hyperplasia or carcinoma. Explained to the patient that endometrial each thickness is less predictive of endometrial neoplasia in asymptomatic patients, i.e. those without postmenopausal uterine bleeding. The sensitivity and specificity for detecting e ndometrial carcinoma at an endometrial thickness of >= 5mm was 83 and 72 percent, respectively; this is lower than in patients with bleeding. Studies have shown that postmenopausal patients without uterine bleeding who had an endometrial thickness >11 mm had an endometrial carcinoma risk of 6.7 percent; this risk is similar to postmenopausal patients with bleeding and an endometrial thickness >5 mm. Recommended endometrial sampling to rule endometrial pathology via either office endometrial biopsy or diagnostic hysteroscopy/D&C with possible polypectomy/myomectomy. All pros and cons, risks and benefits of each approach were discussed with the patient, the patient decided to proceed with endometrial biopsy. Instructions given the patient to schedule an EMB appointment within 2 weeks. All questions answered, the patient verbalized Coding Level of Care Code Est Pt Level 3 (36580) Diagnoses Pelvic pain R10.2 Endometrial thickening on ultrasound R93.89
[2025-04-24 15:29] VITALS: BMI 36.4
== END 2025-04-24 15:40 | disposition home or self-care (01) ==
LOC: HO.HWS 15:22
PROVIDERS: PCP Internal Medicine; Visit Provider Obstetrics & Gynecology
DX: R10.2 Pelvic and perineal pain (principal); R93.89 Abnormal findings on diagnostic imaging of other specified body structures
CPT/HCPCS: 99213

== ENCOUNTER → 2025-04-24 15:22 | Outpatient (BNVA) | payer MEDICAID, SELFPAY | PROVIDERS: PCP Internal Medicine; Visit Provider Obstetrics & Gynecology | DX: R10.2 Pelvic and perineal pain (principal); R93.89 Abnormal findings on diagnostic imaging of other specified body structures | CPT/HCPCS: 99212 ==

== ENCOUNTER 2025-04-29 15:13 | Outpatient (AMB) | payer MEDICAID, SELFPAY ==
--- NOTE | 2025-04-29 15:26 | A.OFFVIS_ITS ---
Intake Visit Reasons: EMB Allergies No Known Allergies (No Known Allergies*) Allergy (Verified 04/24/25 15:30) HPI Comments Details: Presenting for EMB [facility] Medical History Dysplasia of cervix, low grade (MANISHA 1) Hypothyroid GERD (gastroesophageal reflux disease) Urge incontinence HTN (hypertension) Hemorrhoids Diabetes Surgical History Hx of colonoscopy History of Family History Family/Other Breast cancer Maternal Aunt Breast cancer Maternal Aunt Thyroid disease Father HTN (hypertension) Mother Hernia Age related osteoporosis Social History Household Members Other:: daughter Housing: Apartment Alcohol intake: former Patient Tobacco Use Status: Former Tobacco user service: No Current occupational status: employed Sexual orientation: Straight/Heterosexual Gender identity: Female Assessment & Plan Assessment & Plan (1) Endometrial thickening on ultrasound: Code(s): R93.89 - Abnormal findings on diagnostic imaging of other specified body structures Category: Medical Plan: EMB attempted, could not be tolerated procedure aborted. Recommended next step hysteroscopy D&C possible polypectomy/myomectomy. [place] going [place] the [place] 3 [place] with schedule an follow-up appointment/preop in 3 weeks few days after her return date. All questions answered, the patient verbalized understanding and agreed with the plan. Coding Level of Care Code Est Pt Level 3 (06359) Diagnoses Endometrial thickening on ultrasound R93.89
== END 2025-04-29 15:54 | disposition home or self-care (01) ==
LOC: HO.HWS 15:13
PROVIDERS: PCP Internal Medicine; Visit Provider Obstetrics & Gynecology
DX: R93.89 Abnormal findings on diagnostic imaging of other specified body structures (principal)
CPT/HCPCS: 99213

== ENCOUNTER → 2025-04-29 15:13 | Outpatient (BNVA) | payer MEDICAID, SELFPAY | PROVIDERS: PCP Internal Medicine; Visit Provider Obstetrics & Gynecology | DX: R93.89 Abnormal findings on diagnostic imaging of other specified body structures (principal) | CPT/HCPCS: 99212 ==

== ENCOUNTER 2025-06-04 14:45 | Outpatient (AMB) | payer MEDICAID, SELFPAY ==
--- NOTE | 2025-06-04 15:04 | A.OFFVIS_ITS ---
Vital Signs 06/04/25 15:07 Height 5 ft 4 in Weight 212 lb BMI 36.4 BP 130/80 Intake Visit Reasons: pre op Forest Pathology Associate Professor Required: Yes Forest Pathology Associate Professor Language: Fire Services Plumber Services: Forest Pathology Associate Professor Present (in person) Forest Pathology Associate Professor Name: Meera AGUIRRE Information Interpreted: non-clinical & clinical Ash Collector: Ash Collector Present Accompanied by: Daughter Allergies No Known Allergies (No Known Allergies*) Allergy (Verified 06/04/25 15:08) Is last menstrual period known: Yes Last menstrual period: 07/02/20 Post menopausal: Yes Patient : No Do you need a note to return to daycare/school/sports/work: Yes (for surgery on monday) HPI Comments Details: Presenting to discuss hysteroscopy D&C possible polypectomy/myomectomy for thickened endometrium by ultrasound [facility] Medical History Dysplasia of cervix, low grade (MANISHA 1) Hypothyroid GERD (gastroesophageal reflux disease) Urge incontinence HTN (hypertension) Hemorrhoids Diabetes Surgical History Hx of colonoscopy History of Family History Family/Other Breast cancer Maternal Aunt Breast cancer Maternal Aunt Thyroid disease Father HTN (hypertension) Mother Hernia Age related osteoporosis Social History Household Members Other:: daughter Housing: Apartment Alcohol intake: former Patient Tobacco Use Status: Former Tobacco user service: No Current occupational status: employed Sexual orientation: Straight/Heterosexual Gender identity: Female Female Reproductive History Menstrual Date of last menstrual period: 07/02/20 Total pregnancies: 2 Full term: 2 Review of Systems Card Reports as per HPI and Reports no additional complaints Resp Reports as per HPI and Reports no additional complaints GI Reports as per HPI and Reports no additional complaints Reports as per HPI Physical Exam Vital Signs: Last Vital Signs BP 130/80 06/04/25 15:07 BMI result Body Mass Index 36.4 Const General: cooperative, healthy appearing and comfortable Resp Effort & Inspection: normal respiratory effort Auscultation: clear to auscultation bilaterally Percussion: percussion normal Cardio Palpation: normal PMI Rate: regular rate Rhythm: regular rhythm Heart sounds: no murmurs and no rubs Peripheral pulses: Peripheral pulses 2+ throughout GI Inspection: Yes normal to inspection Palpation (GI): Soft to palpation, nontender, no guarding, not rigid and No hepatosplenomegaly present Percussion: Yes normal to percussion Auscultation: normal bowel sounds Rectal Exam - Female: deferred Assessment & Plan Assessment & Plan (1) Endometrial thickening on ultrasound: Code(s): R93.89 - Abnormal findings on diagnostic imaging of other specified body structures Category: Medical Plan: Will proceed with hysteroscopy D&C possible polypectomy/myomectomy. Discussed with the patient the procedure , all benefits and risks including but not limited to inability to complete the procedure , insufficient endometrial tissue for a complete evaluation of the endometrial cavity , bleeding, infection, possible need for blood transfusion with all its risk ( HIV,syphilis, Hepatitis, anaphylaxis shock, others..), injury to bladder, rectum, possible need for laparoscopy/laparotomy or hysterectomy. The patient verbalized understanding and signed the consent. Instructions given the patient to stay NPO after midnight the day prior to the procedure and to discontinue Trulicity 1 week prior to the procedure and not to take any medication the morning of the surgical procedure and to schedule a 2 week postoperative appointment Coding Level of Care Code Est Pt Level 3 (94080) Diagnoses Endometrial thickening on ultrasound R93.89
[2025-06-04 15:07] VITALS: BP 130/80; BMI 36.4
--- OUTSIDE RECORDS SUMMARY | 2025-06-04 15:56 | XMS_ITS | Encounter Summary ---
Author Organization [email or web address] Address [address] [facility] 7t [place] [address] Care Team Providers Care Craft Center Director Name Role Phone Nadine Ham MD Primary Care Provide r Reason for Visit * Reason Comments Med Refill Encounter Details Date Type Department Care Team (Late st Contact Info) Description 10/15/2023 Refill [facility] MEDICINE [address] [place] [address] Emile Roldan MD [address] [place], [place] [phone] Type 2 diabetes mellitus without complication, unspecified whether emt intermediate insulin use ([facility]) Social History Tobacco Use Types Packs/Day Years [...] as of this encounter Plan of Treatment Upcoming Encounters Date Type Department Care Team (Late st Contact Info) Description 09/26/2025 3:30 PM EST Office Visit [facility] OPTOMETRY [address] [place] [address] Liliana Cuenca, OD [address] [place] [address] documented as of this encounter Visit Diagnoses Diagnosis Type 2 diabetes mellitus without complication, unspecified whether emt intermediate insulin use documented in this encounter Additional Health Concerns Assessment Noted Time PHQ-9 Depression Total Score: 0 06/15/20 23 11:13 AM EDT documented as of this encounter Care Teams Craft Center Director Relationship Specialty Start Date End Date Nadine Ham MD [address] [place] [address] PCP - General Family Medicine 07/23/18 documented as of this encounter
--- OUTSIDE RECORDS SUMMARY | 2025-06-04 15:56 | XMS_ITS | Encounter Summary ---
Author Organization [employer] Address [address] [place] [address] 7t [place] [address] Care Team Providers Care Finishing Tunnel Operator Name Role Phone Nadine Ham MD Primary Care Provide r Reason for Visit * Reason Onset Date Comments Appointment Request 11/27/2023 Encounter Details Date Type Department Care Team ([facility] st Contact Info) Description 11/27/2023 Telephone [facility] MEDICINE [address] [place] [address] Nadine Ham MD [address] [place], [place] [phone] Appointment Request Social History Tobacco Use Types [...] Description 09/26/2025 3:30 PM EST Office Visit [facility] OPTOMETRY [address] [place] [address] Liliana Cuenca, OD [address] [place] [address] documented as of this encounter Visit Diagnoses Not on filedocumented in this encounter Additional Health Concerns Assessment Noted Time PHQ-9 Depression Total Score: 0 06/15/20 23 11:13 AM EDT documented as of this encounter Care Teams Finishing Tunnel Operator Relationship Specialty Start Date End Date Nadine Ham MD [address] [place] [address] PCP - General Family Medicine 07/23/18 documented as of this encounter
--- OUTSIDE RECORDS SUMMARY | 2025-06-04 15:56 | XMS_ITS | Encounter Summary ---
Author Organization [employer] Address [address] [place] [address] 7 [place] [address] Care Team Providers Care Filling Winder Name Role Phone Nadine Ham MD Primary Care Provide r Encounter Details Date Type Department Care Team (Late Contact Info) Description 02/02/2023 Orders Only [facility] MED [facility] PEDS [address] [place] [address] Peace Murphy LPN Social History Tobacco Use [...] Encounters Date Type Department Care Team (Late Contact Info) Description 09/26/2025 3:30 PM EST Office Visit [facility] OPTOMETRY [address] [place] [address] Liliana Cuenca, OD [address] [place] [address] documented as of this encounter Visit Diagnoses Not on filedocumented in this encounter Care Teams Filling Winder Relationship Specialty Start Date End Date Nadine Ham MD [address] [place], [place] [phone] PCP - General Family Medicine 07/23/18 documented as of this encounter
--- OUTSIDE RECORDS SUMMARY | 2025-06-04 15:56 | XMS_ITS | Encounter Summary ---
Author Organization [employer] Address [address] [place] [address] 7 [place] [address] Care Team Providers Care Outboard Technician Name Role Phone Nadine Ham MD Primary Care Provide r Encounter Details Date Type Department Care Team (Late Contact Info) Description 01/18/2023 Abstract [facility] MEDICINE [address] [place] [address] Nadine Ham MD [address] [place] [address] Social History Tobacco Use Types Packs/Day Years [...] Description 09/26/2025 3:30 PM EST Office Visit [facility] OPTOMETRY [address] [place], [place] [phone] Liliana Cuenca, OD [address] [place] [address] documented as of this encounter Procedures Procedure Name Priority Date/Time Associated Diagnosis Comments COLPOSCOPY Routine 11/16/2021 12:00 AM EDT HM COLONOSCOPY Routine 10/07/2019 documented in this encounter Results * Colposcopy (11/16/2021 12:00 AM EDT) us Historical Provider IN CLINIC/BEDSIDE ORDERAB LES Final Result * Colonoscopy (10/07/2019) Colonoscopy Normal Normal 10/07/2019 Narrative Maricel Gaytan - 10/07/2019 11:48 AM EST Recommended 10 year follow up( [facility] ) us Historical Provider HEALTH MAINTENANCE Final Result documented in this encounter Visit Diagnoses Not on filedocumented in this encounter Care Teams Outboard Technician Relationship Specialty Start Date End Date Nadine Ham MD [address] [place] [address] PCP - General Family Medicine 07/23/18 documented as of this encounter
--- OUTSIDE RECORDS SUMMARY | 2025-06-04 15:56 | XMS_ITS | Encounter Summary ---
Author Organization [employer] Address [address] [place] [address] 7 [place] [address] Care Team Providers Care Proposal Review Analyst Name Role Phone Nadine Ham MD Primary Care Provide r Encounter Details Date Type Department Care Team (Late Contact Info) Description 11/17/2022 Abstract [facility] MEDICINE [address] [place] [address] Nadine Ham MD [address] [place] [address] Social History Tobacco Use Types Packs/Day Years [...] Description 09/26/2025 3:30 PM EST Office Visit [facility] OPTOMETRY [address] [place], [place] [phone] Liliana Cuenca OD [address] [place] [address] documented as of this encounter Visit Diagnoses Not on filedocumented in this encounter Care Teams Proposal Review Analyst Relationship Specialty Start Date End Date Nadine Ham MD [address] [place] [address] PCP - General Family Medicine 07/23/18 documented as of this encounter
--- OUTSIDE RECORDS SUMMARY | 2025-06-04 15:56 | XMS_ITS | Encounter Summary ---
Author Organization [employer] Address [address] [place] [address] 7t [place] [address] Care Team Providers Care Sewer Maintenance Supervisor Name Role Phone Nadine Ham MD Primary Care Provide r Encounter Details Date Type Department Care Team (Late st Contact Info) Description 01/18/[address] [facility] MEDICINE [address] [place] [address] Valarie Dee RN [address] [place] [address] Social History Tobacco Use Types Packs/Day Years [...] Description 09/26/2025 3:30 PM EST Office Visit [facility] OPTOMETRY [address] [place], [place] [phone] Liliana Cuenca OD [address] [place], [place] [phone] documented as of this encounter Procedures Procedure Name Priority Date/Time Associated Diagnosis Comments HM PAP/HPV Routine 08/03/2021 12:00 AM EST documented in this encounter Results * Hm Pap Smear (08/03/2021 12:00 AM EST) us Historical Provider HEALTH MAINTENANCE Final Result [facility] [address] [place] [address] [phone] documented in this encounter Visit Diagnoses Not on filedocumented in this encounter Care Teams Sewer Maintenance Supervisor Relationship Specialty Start Date End Date Nadine Ham MD [address] [place] [phone] PCP - General Family Medicine 07/23/18 documented as of this encounter
--- OUTSIDE RECORDS SUMMARY | 2025-06-04 15:56 | XMS_ITS | Encounter Summary ---
Author Organization [employer] Address [address] [facility] 7t [place] [address] Care Team Providers Care Electrical Systems Designer Name Role Phone Nadine Ham MD Primary Care Provide r Encounter Details Date Type Department Care Team ([facility] st Contact Info) Description 07/13/2023 Orders Only [facility] MEDICINE [address] [place] [address] Nadine Ham MD [address] [place] [address] Social History Tobacco Use Types Packs/Day Years [...] Description 09/26/2025 3:30 PM EST Office Visit [facility] OPTOMETRY [address] [place], [place] [phone] Liliana Cuenca, OD [address] [place] [address] documented as of this encounter Visit Diagnoses Not on filedocumented in this encounter Additional Health Concerns Assessment Noted Time PHQ-9 Depression Total Score: 0 06/15/20 23 11:13 AM EDT documented as of this encounter Care Teams Electrical Systems Designer Relationship Specialty Start Date End Date Nadine Ham MD [address] [place] [address] PCP - General Family Medicine 07/23/18 documented as of this encounter
--- OUTSIDE RECORDS SUMMARY | 2025-06-04 15:56 | XMS_ITS | Encounter Summary ---
Author Organization [employer] Address [address] [facility] 7t [place] [address] Care Team Providers Care Knifeman Name Role Phone Nadine Ham MD Primary Care Provide r Encounter Details Date Type Department Care Team ([facility] st Contact Info) Description 07/25/2024 Orders Only [facility] MEDICINE [address] [place] [address] Nadine Ham MD [address] [place] [address] Social History Tobacco Use Types Packs/Day Years [...] Description 09/26/2025 3:30 PM EST Office Visit [facility] OPTOMETRY [address] [place], [place] [phone] Bang, Liliana, OD [address] [place] [address] documented as of this encounter Visit Diagnoses Not on filedocumented in this encounter Additional Health Concerns Assessment Noted Time PHQ-9 Depression Total Score: 0 06/15/20 23 11:13 AM EDT documented as of this encounter Care Teams Knifeman Relationship Specialty Start Date End Date Nadine Ham MD [address] [place] [address] PCP - General Family Medicine 07/23/18 documented as of this encounter
--- OUTSIDE RECORDS SUMMARY | 2025-06-04 15:56 | XMS_ITS | Encounter Summary ---
Author Organization [employer] Address [address] [place] [address] 7 [place] [address] Care Team Providers Care Mysql Database Administrator Name Role Phone Nadine Ham MD Primary Care Provide r Encounter Details Date Type Department Care Team (Late Contact Info) Description 04/14/2023 Orders Only [facility] MED [facility] PEDS [address] [place] [address] Peace Murphy LPN Social History Tobacco Use [...] Description 09/26/2025 3:30 PM EST Office Visit [facility] OPTOMETRY [address] [place] [address] Liliana Cuenca, OD [address] [place] [address] documented as of this encounter Visit Diagnoses Not on filedocumented in this encounter Care Teams Mysql Database Administrator Relationship Specialty Start Date End Date Nadine Ham MD [address] [place], [place] [phone] PCP - General Family Medicine 07/23/18 documented as of this encounter
--- OUTSIDE RECORDS SUMMARY | 2025-06-04 15:56 | XMS_ITS | Encounter Summary ---
Author Organization [employer] Address [address] [facility] 7t [place] [address] Care Team Providers Care Dry Wall Plasterer Name Role Phone Nadine Ham MD Primary Care Provide r Reason for Visit * Reason Onset Date Comments letter 04/03/2025 Encounter Details Date Type Department Care Team ([facility] st Contact Info) Description 04/03/2025 Telephone [facility] MEDICINE [address] [place], [place] [phone] Nadine Ham MD [address] [place], [place] [phone] letter Social History Tobacco Use Types Packs/Day [...] 10:37 AM EDT TC placed to patient [phone] to inform PCP sent Trulicity 0.75mg to the pharmacy. Patient verbalized understanding. Patient to f/u PRN. Please review if Trulicity should be increased (patient was on 0.75mg before). Thank you * Telephone Encounter - Leilani Oakes RN - 04/03/2025 4:16 PM EDT TC placed to patient [phone] in regards to below message. Patient reports she received a letter in regards to her Trulicity. Patient is unsure what the letter is stating. RN called [facility] pharmacy who reports the patient [...] taking Trulicity. Any questions contact pt at [phone] documented in this encounter Plan of Treatment Upcoming Encounters Date Type Department Care Team (Late st Contact Info) Description 09/26/2025 3:30 PM EST Office Visit [facility] OPTOMETRY [address] [place] [address] Bang, Liliana, OD [address] [place] [address] documented as of this encounter Visit Diagnoses Not on filedocumented in this encounter Additional Health Concerns Assessment Noted Time PHQ-9 Depression Total Score: 0 06/15/20 23 11:13 AM EDT documented as of this encounter Care Teams Dry Wall Plasterer Relationship Specialty Start Date End Date Nadine Ham MD [address] [place], [place] [phone] PCP - General Family Medicine 07/23/18 documented as of this encounter
--- OUTSIDE RECORDS SUMMARY | 2025-06-04 15:56 | XMS_ITS | Encounter Summary ---
Author Organization [email or web address] Address [address] [facility] 7t [place] [address] Care Team Providers Care Bread Racker Name Role Phone Nadine Ham MD Primary Care Provide r Reason for Visit * Reason Comments Med Refill Encounter Details Date Type Department Care Team (Late st Contact Info) Description 10/15/2023 Refill [facility] MEDICINE [address] [place] [address] Doreen Marques MD [address] [place] [address] Essential hypertension Social History Tobacco Use Types [...] 3:30 PM EST Office Visit [facility] OPTOMETRY [address] [place] [address] Liliana Cuenca, OD [address] [place] [address] documented as of this encounter Visit Diagnoses Diagnosis Essential hypertension Unspecified essential hypertension documented in this encounter Additional Health Concerns Assessment Noted Time PHQ-9 Depression Total Score: 0 06/15/20 23 11:13 AM EDT documented as of this encounter Care Teams Bread Racker Relationship Specialty Start Date End Date Nadine Ham MD [address] [place] [address] PCP - General Family Medicine 07/23/18 documented as of this encounter
--- OUTSIDE RECORDS SUMMARY | 2025-06-04 15:56 | XMS_ITS | Encounter Summary ---
Author Organization [employer] Address [address] [facility] 7t [place] [address] Care Team Providers Care Banana Room Cutter Name Role Phone Nadine Ham MD Primary Care Provide r Encounter Details Date Type Department Care Team ([facility] st Contact Info) Description 04/04/2025 Orders Only [facility] MEDICINE [address] [place] [address] Nadine Ham MD [address] [place] [address] Social History Tobacco Use Types Packs/Day Years [...] Description 09/26/2025 3:30 PM EST Office Visit [facility] OPTOMETRY [address] [place], [place] [phone] Bang, Liliana, OD [address] [place] [address] documented as of this encounter Visit Diagnoses Not on filedocumented in this encounter Additional Health Concerns Assessment Noted Time PHQ-9 Depression Total Score: 0 06/15/20 23 11:13 AM EDT documented as of this encounter Care Teams Banana Room Cutter Relationship Specialty Start Date End Date Nadine Ham MD [address] [place] [address] PCP - General Family Medicine 07/23/18 documented as of this encounter
--- OUTSIDE RECORDS SUMMARY | 2025-06-04 15:56 | XMS_ITS | Encounter Summary ---
Author Organization [employer] Address [address] [place] [address] 7 [place] [address] Care Team Providers Care Registered Pharmacy Technician Name Role Phone Nadine Ham MD Primary Care Provide r Encounter Details Date Type Department Care Team (Late Contact Info) Description 03/24/2023 Orders Only [facility] MEDICINE [address] [place] [address] Jessica Groves LPN Social History Tobacco Use [...] Description 09/26/2025 3:30 PM EST Office Visit [facility] OPTOMETRY [address] [place] [address] Liliana Cuenca, OD [address] [place] [address] documented as of this encounter Visit Diagnoses Not on filedocumented in this encounter Care Teams Registered Pharmacy Technician Relationship Specialty Start Date End Date Nadine Ham MD [address] [place] [address] PCP - General Family Medicine 07/23/18 documented as of this encounter
--- OUTSIDE RECORDS SUMMARY | 2025-06-04 15:57 | XMS_ITS | Clinical Summary ---
Author Organization [employer] Address [address] [facility] [address] [place] [address] Care Team Providers Care Sample Body Builder Name Role Phone Nadine Ham MD Primary Care Provide r Allergies No known active allergies Medications Diclofenac Sodium 1 % gelIndications:O ther chronic pain APPLY 2 GRAMS TO AFFECTED AREA(S) FOUR TIMES DAILY 100 g 1 09/16/19 23 Active Lidoderm 5 % patch APPLY 1 TO 2 PATCHES TOPICALLY DAILY 12 HOURS ON, 12 HOURS OFF. NEEDED FOR PAIN 08/01/20 22 Active FREESTYLE LITE test strip TEST BLOOD SUGAR TWICE DAILY 50 strip 04/14/20 23 Active TRUEplus Lancets 33G misc TEST BLOOD SUGAR TWICE DAILY 100 each 11 04/14/20 23 Active FREESTYLE LITE test strip TEST BLOOD SUGAR TWICE DAILY 02/03/20 23 Active TRUEplus Lancets 33G misc TEST BLOOD SUGAR TWICE DAILY 02/03/20 23 Active Cetylpyridinium Chloride (Mouth Rinse) 0.07 % liquidIndication s:Gingivitis Use 5 mL in the mouth or throat Once daily. 500 mL 1 04/20/20 23 Active fluticasone (Flonase) 50 MCG/ACT nasal spray Administer 1-2 sprays into each nostril in the morning for 14 days. Shake gently. Before first use, prime pump. After use, clean tip and replace cap. 16 g 07/14/20 23 Active omeprazole (PriLOSEC) [address] capsuleIndicatio ns:Gastroesophag eal reflux disease, unspecified whether esophagitis present Take 1 capsule (20 mg) by mouth before breakfast and before evening meal. Do not crush or chew. 60 capsule 3 12/12/19 24 Active empagliflozin (Jardiance) 10 MGIndications:Ty pe 2 diabetes mellitus with hyperglycemia, without long-term current use of insulin ([facility]) Take 1 tablet (10 mg) by mouth in the morning. 30 tablet 11 12/12/19 24 Active senna (Senokot) 8.6 MG tablet TAKE 1 TABLET BY MOUTH EVERY DAY AT BEDTIME FOR CONSTIPATION 07/22/20 24 Active Acetaminophen Extra Strength 500 MG tabletIndication s:Tooth infection TAKE 2 TABLETS BY MOUTH EVERY 6 HOURS NEEDED FOR PAIN 30 tablet 10/16/19 25 Active cholecalciferol (Vitamin D-3) 25 MCG tabletIndication s:Type 2 diabetes mellitus with hyperglycemia, without long-term current use of insulin ([facility]) TAKE 1 TABLET BY MOUTH EVERY DAY 60 tablet 10/16/19 25 Active gabapentin (Neurontin) 100 MG capsuleIndicatio ns:Fibromyalgia TAKE 3 CAPSULES BY MOUTH TWICE DAILY 180 capsule 10/16/19 25 Active lidocaine (Lidoderm) 5 % patchIndications :Pain APPLY 1 TO 2 PATCHES TOPICALLY TO SKIN, LEAVE ON FOR 12 HOURS AND OFF FOR 12 HOURS DIRECTED 60 patch 2 10/16/19 25 Active docusate sodium (Colace) 100 MG capsuleIndicatio ns:Constipation, unspecified constipation type Take 1 capsule (100 mg) by mouth 2 times daily. 60 capsule 11 03/03/20 25 026 Active glipiZIDE XL (Glucotrol XL) 5 MG 24 hr tabletIndication s:Type 2 diabetes mellitus with hyperglycemia, without long-term current use of insulin ([facility]) TAKE 1 TABLET BY MOUTH TWICE DAILY 180 tablet 1 03/03/20 25 Active Reguloid 28.3 % powderIndication s:Constipation, unspecified constipation type DISSOLVE 1 TABLESPOONFUL IN WATER AND DRINK BY MOUTH TWICE DAILY 369 g 3 03/27/20 25 Active Trulicity 0.75 MG/0.5ML solution auto-injectorInd ications:Type 2 diabetes mellitus with hyperglycemia, without long-term current use of insulin ([facility]) INJECT ONE PEN (=0.75MG) SUBCUTANEOUSLY ONCE A WEEK DIRECTED 2 mL 2 04/04/20 25 Active Dulaglutide (Trulicity) 0.75 MG/0.5ML solution auto-injectorInd ications:Type 2 diabetes mellitus with hyperglycemia, without long-term current use of insulin ([facility]) Inject 0.75 mg under the skin 1 (one) time per week. 2 mL 2 04/04/20 25 Active omeprazole (PriLOSEC) [address] capsule TAKE 1 CAPSULE EVERY DAY BEFORE A MEAL 90 capsule 1 04/14/20 25 Active metFORMIN (Glucophage) 1000 MG tabletIndication s:Type 2 diabetes mellitus without complication, unspecified whether skilled nursing insulin use TAKE 1 TABLET TWICE DAILY IN THE MORNING AND IN THE EVENING WITH MEALS 180 tablet 1 04/14/20 25 Active chlorthalidone (Hygroton) 25 MG tabletIndication s:Essential hypertension TAKE 1 TABLET EVERY MORNING 90 tablet 1 04/14/20 25 Active ferrous sulfate 325 (65 Fe) MG EC tabletIndication s:Iron deficiency anemia, unspecified iron deficiency anemia type TAKE 1 TABLET BY MOUTH EVERY OTHER DAY, DO NOT BREAK, CRUSH, DISSOLVE OR CHEW 45 tablet 1 04/14/20 25 Active lisinopril 40 MG tablet TAKE 1 TABLET BY MOUTH EVERY DAY 90 tablet 3 04/14/20 25 Active Blood Pressure kit USE TO CHECK BLOOD PRESSURE DIRECTED 1 kit 04/23/20 25 Active Active Problems Problem Noted Date Diagnosed Date Tachycardia 01/16/2025 Assessment & Plan (01/16/2025 12:03 PM EDT): EKG normal Continue cardiology f.u Check TSH/CBC Class 2 severe obesity with serious comorbidity and body mass index (BMI) of 39.0 to 39.9 in adult 01/16/2025 Microcytic anemia 03/11/2024 Encounter for screening mamm [...] drinks,denies smoking Iron (Fe) deficiency anemia 06/15/2023 Type 2 diabetes mellitus with hyperglycemia 04/04 Assessment & Plan (01/16/2025 12:06 PM EDT): Not able to obtain Ozempic due to PA issues, started on Trulicity today 0.75mg, followup with PCP in 4-8 weeks to check weight and side effects Assessment & Plan (07/23/2024 4:34 PM EST): [...] advise to make a dental appointment RONNA Essential hypertension 08/10/2022 Assessment & Plan (01/16/2025 12:05 PM EDT): Uncontrolled today, pt says it is <140/90 at home Assessment & Plan (07/23/2024 4:32 PM EST): [...] Chronic kidney disease 08/10/2022 Overactive bladder 08/10/2022 Resolved Problems Problem Noted Date Diagnosed Date Resolved Date Subacute cough 06/15/2023 01/16/2025 Assessment & Plan (07/16/2023 1:49 PM EST): Normal lung exam -dextromethorpahe , ocean nasal ,flonase x 14 days for possible PORTILLO and postnsal drip per symptoms -alarm signs and symptoms Tooth infection 04/20/2023 01/16/2025 Encounters Date Type Department Care Team Description 04/23/2025 Refill [facility] [address] [place] [address] Nadine Ham MD 04/13/2025 Refill [facility] [address] [place] [address] Nadine Ham MD Type 2 diabetes mellitus without complication, 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 ([facility]); Essential hypertension; Iron deficiency anemia, unspecified iron deficiency anemia type 04/04/2025 Orders Only [facility] [address] [place] [address] Nadine Ham MD 04/04/2025 Orders Only [facility] [address] [place] [address] Nadine Ham MD Type 2 diabetes mellitus with hyperglycemia, without long-term current use of insulin ([facility]) 04/03/2025 Telephone [facility] [address] [place] [address] Nadine Ham MD letter 04/01/2025 Refill [facility] [address] [place], [place] [phone] Doreen Marques MD Type 2 diabetes mellitus with hyperglycemia, without long-term current use of insulin ([facility]) 03/26/2025 Refill [facility] [address] [place] [address] Lexa, Bibiana, METALLURGICAL INSPECTOR Constipation, unspecified constipation type 03/12/2025 Orders Only [facility] External Provider, [facility] 03/04/2025 Telephone [facility] [address] [place] [address] Nadine Ham MD Appointment Request from Last 3 Months Immunizations Immunization Administration Dates Next Due Influenza injectable quadriv [...] Sign Reading Time Taken Comments Blood Pressure 124/86 03/03/2025 2:43 PM EDT Pulse 100 03/03/2025 2:43 PM EDT Temperature 36.8 C (98.2 F) 03/03/2025 2:43 PM EDT Respiratory Rate 20 03/03/2025 2:43 PM EDT Oxygen Saturation 97% 01/13/2025 2:52 PM EDT Inhaled Oxygen Concentration - - Weight 96.2 kg (212 lb) 03/03/2025 2:43 PM EDT Height 162.6 cm (5' 4 ) 03/03/2025 2:43 PM EDT Body Mass Index 36.39 03/03/2025 2:43 PM EDT Plan of Treatment Upcoming Encounters Date Type Department Care Team (Late st Contact Info) Description 09/26/2025 3:30 PM EST Office Visit [facility] [address] [place] [address], [place] [address] Liliana Cuenca, OD [address] [place] [address] Health Maintenance Due Date Last Done Comments CT Colonography 1969 Dental Prophylaxis 1969 FIT DNA/Cologuard 1969 FIT 1970 FOBT 1970 HIV Screening 1970 Sigmoidoscopy 1969 Disability Screening 1969 Diabetes: Foot Exam 12/03/1979 Alcohol/Substance Use Screening 1981 Hepatitis C Screening 12/03/1987 DTaP/Tdap/Td Vaccines (1 - Tdap) 1988 Hepatitis B Vaccines (1 of 3 - 19+ 3-dose series) 1988 Zoster Vaccines (1 of 2) 12/03/2019 Dental Oral Exam 11/16/2023 05/17/2023 Cervical Cancer Screening 03/03/2024 HPV/Cotest 03/03/2024 02/01/2023, 07/07, 08/03/2021, Additional history exists Pap Smear 03/03/2024 02/01/2023, 08/03/2021 Dental X-Ray: Bitewings 05/18/2024 05/17/2023 Depression Screening 06/15/2024 06/15/2023, 06/15/20 23 SDOH Screening 06/15/2024 06/15/2023 Diabetes: Hemoglobin A1C 10/23/2024 024, 03/11/2024, 12/12/2023, Additional history exists COVID-19 Vaccine ( season) 2025 08/18/2021, 07/28/2021 Influenza Vaccine (#1) 2025 07/25/2019 Diabetes: Urine Protein Screening 10/29/2025 10/29/2024, 05/25/2023 Lipid Panel 10/29/2025 10/29/2024, 05/06, 11/08/2021 Tobacco Screening 03/09/2026 03/09/2025 Mammogram 03/20/2026 03/20/2025, 03/04, 06/21/2021, Additional history exists Dental X-Ray: Full Mouth 05/18/2026 05/17/2023 Eye [...] patient's age to complete this topic Meningococcal B Vaccine Aged Out No l onger eligible based on patient's age to complete [...] Procedure Name Priority Date/Time Associated Diagnosis Comments BI MAMMOGRAM SCREENING TOMOSYNTHESIS BILATERAL Routine 03/20/2025 2:36 PM EDT US PELVIS TRANSVAGINAL Routine 4:02 PM EDT ALBUMIN, RANDOM URINE W/CREATININE Routine 10/29/2024 1:15 PM EST Type 2 diabetes mellitus with hyperglycemia, without long-term current use of insulin (CMS/HCC) LIPID PANEL, STANDARD Routine 10/29/2024 1:15 PM EST Type 2 diabetes mellitus with hyperglycemia, without long-term current use of insulin (CMS/HCC) POCT GLYCATED HEMOGLOBIN, TOTAL Routine 07/23/2024 3:29 PM EST Type 2 diabetes mellitus with hyperglycemia, without long-term current use of insulin (CMS/HCC) INTRAORAL - COMPLETE SERIES OF RADIOGRAPHIC IMAGES [...] Recently Relevant to Health Maintenance Results * BI Mammogram Screening Tomosynthesis Bilateral (03/20/2025 2:36 PM EDT) Anatomical Region Laterality Modality Breast Bilateral Mammography 03/20/2025 2:36 PM EDT Narrative 03/31/2025 4:35 PM EDT [facility] [address] [place] [address] Mammography Report Signed Patient: Adeola De La Fuente R#: [id number] : 1970 Acct:[id number] Age/Sex: 54 / F ADM Date: 03/20/25 Loc: .MAMMO Attending Dr: Nadine Castellano MD Ordering Physician: Nadine Ham MD Results: 1Negative Date of Service: 03/20/25 Follow Up: 1 Year From Orig ina Mammogram Procedure(s): MM tomosynthesis screening BI Accession Number(s): [id number] cc: Nadine Ham MD EXAMINATION: MM SCREENING DIGITAL BREAST TOMOSYNTHESIS, BILATERAL CLINICAL INFORMATION: Screening. Asymptomatic. COMPARISON: Mammography: Comparison is made with available priors TECHNIQUE: Digital breast mammography with tomosynthesis is performed in both the craniocaudal and mediolateral oblique views along with computer-aided detection (CAD). FINDINGS: The breasts are heterogeneously dense, which may obscure small masses (ACR BI-RADS breast composition Category c). There are no significant masses, abnormal calcifications, or other abnormalities. MM/MM tomosynthesis screening BI IMPRESSION: No mammographic evidence of malignancy. ASSESSMENT: BI-RADS BI-RADS 1 - Negative RECOMMENDATION: Routine annual mammography screening. 1 year F/U This examination should not preclude the clinical evaluation of a suspicious palpable abnormality. This patient's information was entered into a reminder system with a target due date for their next mammogram. Electronically signed by: Cheryl Amador DO 03/31/2025 04:31 PM EDT Dictated By: Cheryl Amador DO Signed By: <Electronically signed by Cheryl Amador DO in OV> 03/31/25 1631 DD/ 1436 TD/TT: 03/20/25 1457 Canoe Builder: Procedure Note Donotuseinterpreter, Image - 03/31/2025 [facility] [address] [place] [address] Mammography Report Signed Patient: Gonzalo De La Fuente R#: [id number] : 1970Acct:[id number] Age/Sex: 54 / FADM Date: 03/20/25 Loc: HO.MAMMO Attending Dr: Nadine Castellano MD Ordering Physician: Nadine Ham MDResults: 1Negative Date of Service: 03/20/25Follow Up: 1 Year From Orig inal Mammogram Procedure(s): MM tomosynthesis screening BI Accession Number(s): [id number] cc: Nadine Ham MD EXAMINATION: MM SCREENING DIGITAL BREAST TOMOSYNTHESIS, BILATERAL CLINICAL INFORMATION: Screening. Asymptomatic. COMPARISON: Mammography: Comparison is made with available priors TECHNIQUE: Digital breast mammography with tomosynthesis is performed in both the craniocaudal and mediolateral oblique views along with computer-aided detection (CAD). FINDINGS: The breasts are heterogeneously dense, which may obscure small masses (ACR BI-RADS breast composition Category c). There are no significant masses, abnormal calcifications, or other abnormalities. MM/MM tomosynthesis screening BI IMPRESSION: No mammographic evidence of malignancy. ASSESSMENT: BI-RADS BI-RADS 1 - Negative RECOMMENDATION: Routine annual mammography screening. 1 year F/U This examination should not preclude the clinical evaluation of a suspicious palpable abnormality. This patient's information was entered into a reminder system with a target due date for their next mammogram. Electronically signed by: Cheryl Amador DO 03/31/2025 04:31 PM EDT RP Dictated By: Cheryl Amador DO Signed By: <Electronically signed by Cheryl Amador DO in OV> 03/31/25 1631 DD/ 1436 TD/TT: 03/20/25 1457 Canoe Builder: us Nadine Castellano MD IMG BI PROCEDURES Fin al Result * US Pelvis Transvaginal (03/12/2025 4:02 PM EDT) Anatomical Region Laterality Modality Pelvis Ultrasound 03/12/2025 4:02 PM EDT Narrative 03/13/2025 7:18 AM EDT [place] [address] Ultrasound Report Signed Patient: Adeola De La Fuente#: [id number] : 1970 Acct:[id number] Age/Sex: 54 / F ADM Date: 03/12/25 Loc: .US Attending Dr: Murali Leon MD Ordering Physician: Murali Leon MD Date of Service: 03/12/25 Procedure(s): US pelvic and transvaginal Accession Number(s): [id number] cc: Nadine Ham MD; Murali Leon MD EXAMINATION: US PELVIS TRANSABDOMINAL AND TRANSVAGINAL HISTORY: R10.2 - Pelvic and perineal pain COMPARISON: Correlation is made with an unenhanced CT of the pelvis dated 02/10/2022. TECHNIQUE: Transabdominal and endovaginal real-time 2D rodriguez-scale ultrasound was performed. FINDINGS: Uterus: The uterus is normal in size, measuring 10.1 x 3.1 x 4.7 cm. Myometrium has a normal echotexture. No fibroids are identified. Endometrium: The endometrial stripe measures 5 mm in thickness. Right ovary: The right ovary measures 2.9 x 1.5 x 1.6 cm. The right ovary is normal in size and echotexture. Left ovary: The left ovary measures 2.1 x 1.7 x 2.1 cm. The left ovary is normal in size and echotexture. Pelvic fluid: none. US/US pelvic and transvaginal IMPRESSION: Unremarkable pelvic ultrasound. Electronically signed by: Irvni Maher MD 03/13/2025 07:16 AM EDT RP Dictated By: Irvin Maher MD Signed By: <Electronically signed by Irvin Maher MD in OV> 03/13/25 0716 DD/ 1602 TD/TT: 03/12/25 1618 Canoe Builder: Procedure Note Donotuseinterpreter, Image - 03/13/2025 [place] [address] Ultrasound Report Signed Patient: Gonzalo De La Fuente R#: [id number] : 1970Acct:[id number] Age/Sex: 54 / FADM Date: 03/12/25 Loc: .US Attending Dr: Murali Leon MD Ordering Physician: Murali Leon MD Date of Service: 03/12/25 Procedure(s): US pelvic and transvaginal Accession Number(s): [id number] cc: Nadine Ham MD; Murali Leon MD EXAMINATION: US PELVIS TRANSABDOMINAL AND TRANSVAGINAL HISTORY: R10.2 - Pelvic and perineal pain COMPARISON: Correlation is made with an unenhanced CT of the pelvis dated 02/10/2022. TECHNIQUE: Transabdominal and endovaginal real-time 2D rodriguez-scale ultrasound was performed. FINDINGS: Uterus: The uterus is normal in size, measuring 10.1 x 3.1 x 4.7 cm. Myometrium has a normal echotexture. No fibroids are identified. Endometrium: The endometrial stripe measures 5 mm in thickness. Right ovary: The right ovary measures 2.9 x 1.5 x 1.6 cm. The right ovary is normal in size and echotexture. Left ovary: The left ovary measures 2.1 x 1.7 x 2.1 cm. The left ovary is normal in size and echotexture. Pelvic fluid: none. US/US pelvic and transvaginal IMPRESSION: Unremarkable pelvic ultrasound. Electronically signed by: Irvin Maher MD 03/13/2025 07:16 AM EDT RP Dictated By: Irvin Maher MD Signed By: <Electronically signed by Irvin Maher MD in OV> 03/13/25 0716 DD/ 1602 TD/TT: 03/12/25 1618 Canoe Builder: [facility] External Provider IMG US PROCEDURES Edited Result - Final * Albumin, Random Urine W/Creatinine (10/29/2024 1:15 PM EST) Creatinine, Urine 88.15 mg/dL [facility] Microalbumin Urine 5.0 mg/L [facility] Microalbum Creatinine Ratio Ur 5.6 <30 ug/mg cr [facility] Comment:Albumin/Creatinine R atio Reference Ranges: Normal: < 30 ug/mg creatinine Microalbuminuria: 30 - 300 ug/mg creatinineClinical Albuminuria: > 300 ug/mg creatinine Urine (Urine, Random) 10/29/2024 1:15 PM EST 10/29/2024 4:14 PM EST Nadine Castellano MD LAB URINE ORDERABLES Final Result [facility] [address] [place] [phone] * (ABNORMAL) Lipid Panel, Standard (10/29/2024 1:15 PM EST) Triglycerides 181(H) <150 mg/dL [facility] Comment:Slight Lipemia.Betty able Triglyceride: less than 150 mg/dLBorderline High Triglyceride 150-199 mg/dLHigh Triglyceride: 200-499 mg/dLVery High Triglyceride: greater than or equal to 5OO mg/dL Cholesterol 172 <200 mg/dL [facility] Comment:Desirable Cholestero l: less than 200 mg/dLBorderline High Cholesterol: 200-239 mg/dLHigh Cholesterol: greater than 239 mg/dL LDL Cholesterol Calculated 80 <100 mg/dL [facility] Comment:Desirable LDL: less than 100 mg/dLNear Optimal/Above Optimal LDL: 110- 129 mg/dLBorderline High LDL: 130-159 mg/dLHigh LDL: 160-189 mg/dLVery High LDL: greater than or equal to 190 mg/dL HDL Cholesterol 56 >40 mg/dL [facility] Comment:Desirable HDL: great er than 40 mg/dL Note: This HDL assay may give artificially low results in patients with liver disease. Blood Venous blood specimen / Unknown 10/29/2024 1:15 PM EST 10/29/2024 4:08 PM EST Nadine Castellano MD LAB BLOOD ORDERABLES Final Result [facility] [address] [place] [phone] * (ABNORMAL) POCT HGB A1C (07/23/2024 3:29 PM EST) Hemoglobin A1C 8.1(A) 4.0 - 6.0 % QC Media Lot # [id number] Lot# Expiration Date [id number] Blood 07/23/2024 3:29 PM EST Nadine Castellano MD POINT OF CARE TEST EN TER/EDIT ORDERABLES Final Result * (ABNORMAL) HPV mRNA E6/E7 w/Reflex to HPV Genotypes 16, 18/45 (02/01/2023 3:18 PM EDT) HPV nRNA E6/E7 Detected(A ) Not Detected [facility] Comment:Methodology: Transcr iption-Mediated AmplificationThis assay detects E6/E7 viral messenger RNA (mRNA) from 14high-risk HPV types (16,18,31,33,35,39,45,51,52,56,58,59,66,68).Cervical sources are required for HPV testing.If a vaginal source from a patient who has had atotal hysterectomy with removal of cervix wassubmitted, please contact the testing laboratoryfor alternative testing options.For additional information, please refer tohttp://education.Aktino/faq/MOY544j9(This link if provided for information/educational purposes only.)THIS TEST WAS PERFORMED AT:[facility] [place] [phone] STAUFFER MD HPV 16 RNA NOT DETECTED NOT DETECTED [facility] HPV 18/45 RNA NOT DETECTED NOT DETECTED [facility] Comment:Methodology: Transcr iption Mediated AmplificationCervical sources are required for HPV testing.If a vaginal source from a patient who has had atotal hysterectomy with removal of cervix wassubmitted, please contact the testing laboratoryfor alternative testing options.THIS TEST WAS PERFORMED AT:[facility] [place] [phone] STAUFFER MD 02/01/2023 3:1 8 PM EDT 02/02/2023 8:30 AM EDT us [facility] External Provider LAB CYT OLOGY ORDERABLES Final Result [facility] [address] [place] [phone] * Pap Smear (02/01/2023 3:18 PM EDT) 02/01/2023 3:18 PM EDT 02/02/2023 8:30 AM EDT Narrative [facility] - 02/22/2023 6:19 PM EDT ----- ------- Name: Adeola De La Fuente Age/Sex: 52/F : 1970 Unit#: [id number] Attend Dr: Murali Leon MD Re02/01/23 Status: [facility] Location: [facility] Disch: ----- ------- SPEC : [id number] RECD: 02/02/23 STATUS: [facility] NUM: [id number] MIROSLAVA: 02/01/23-[address] [facility] [address]: Murali Leon MD ENTERED: 02/02/23 SP TYPE: Pap Smr [facility] DR: Nadine Ham MD ORDERED: Pap Smear Interpretation General Category: Epithelial cell abnormality. Adequacy: Endocervical component absent. Interpretation: Atypical squamous cells of undetermined significance. Parakeratosis. Coccobacilli consistent with shift in vaginal esteban. HPV mRNA E6/E7: DETECTED This assay detects E6/E7 viral messenger RNA (mRNA) from 14 high-risk HPV types (16, 18, 31, 33, 35, 39, 45, 51, 52, 56, 58, 59, 66, 68) HPV Type 16 RNA: Not Detected HPV Type 18/45 RNA: Not Detected HPV testing performed by [facility], [place], [place]. See reference laboratory portion of the EMR for entire report. Clinical Information LMP: Postmenopausal Previous PAP test: 2020, MANISHA I Material Received ThinPrep-Cervical Copies To: Nadine Ham MD [address] [place] [address] Murali Leon MD [address] [place] [address] Dr. R[address] [place] [address] ----- ------- Signed (signature on file) Teresa Ferrera 02/22/23 1819 ----- ------- END OF REPORT [facility] External Provider LAB [facility] ORDERABLES Final Result [facility] [address] [place] [phone] * Colonoscopy (10/07/2019) Colonoscopy Normal Normal 10/07/2019 Maricel Green - 10/07/2019 11:48 AM EST Recommended 10 year follow up( [facility] ) Historical Provider HEALTH MAINTENANCE Final Result from Last 3 Months or Most Recently Relevant to Health Maintenance Insurance [facility] MEDICAID STAND ADULT Care Teams Sample Body Builder Relationship Specialty Start Date End Date Nadine Ham MD [address] [place], [place] PCP - General Family Medicine 07/23/18
--- OUTSIDE RECORDS SUMMARY | 2025-06-04 15:57 | XMS_ITS | Encounter Summary ---
Author Organization [employer] Address [address] [place] [address] [address] [place] [address] Care Team Providers Care Water Filterer Helper Name Role Phone Nadine Ham MD Primary Care Provide r Encounter Details Date Type Department Care Team (Late Contact Info) Description 10/03/2022 Orders Only [facility] [address] [place] [address] Peace Murphy LPN Social History Tobacco Use [...] Description 09/26/2025 3:30 PM EST Office Visit [facility] [address] [place] [address] Liliana Cuenca, OD [address] [place] [address] documented as of this encounter Visit Diagnoses Not on filedocumented in this encounter Care Teams Water Filterer Helper Relationship Specialty Start Date End Date Nadine Ham MD [address] [place], [place] [phone] PCP - General Family Medicine 07/23/18 documented as of this encounter
--- OUTSIDE RECORDS SUMMARY | 2025-06-04 15:57 | XMS_ITS | Encounter Summary ---
Author Organization [employer] Address [address] [place] [address] [address] [address] Care Team Providers Care Senior Mortgage Underwriter Name Role Phone Nadine Ham MD Primary Care Provide r Encounter Details Date Type Department Care Team (Late Contact Info) Description 10/19/2022 Telephone [facility] MEDICINE [address] [place] [address] Nadine Ham MD [address] [place] [address] Social History Tobacco Use Types Packs/Day Years [...] Description 09/26/2025 3:30 PM EST Office Visit [facility] OPTOMETRY [address] [place], [place] [phone] Liliana Cuenca, OD [address] [place] [address] Scheduled Orders Name Type Priority Associated Diagnoses Orde r Schedule OUTSIDE PROCEDURE SCAN Procedures Or dered: 10/19/2022 documented as of this encounter Visit Diagnoses Not on filedocumented in this encounter Care Teams Senior Mortgage Underwriter Relationship Specialty Start Date End Date Nadine Ham MD [address] [place] [address] PCP - General Family Medicine 07/23/18 documented as of this encounter
== END 2025-06-04 15:46 | disposition home or self-care (01) ==
LOC: HO.HWS 14:46
PROVIDERS: PCP Internal Medicine; Visit Provider Obstetrics & Gynecology
DX: R93.89 Abnormal findings on diagnostic imaging of other specified body structures (principal)
CPT/HCPCS: 99213

== ENCOUNTER → 2025-06-04 14:45 | Outpatient (BNVA) | payer MEDICAID, SELFPAY | PROVIDERS: PCP Internal Medicine; Visit Provider Obstetrics & Gynecology | DX: R93.89 Abnormal findings on diagnostic imaging of other specified body structures (principal) | CPT/HCPCS: 99212 ==

== ENCOUNTER 2025-06-27 05:55 | Day surgery (SDC) | payer MEDICAID, SELFPAY ==
--- OUTSIDE RECORDS SUMMARY | 2025-06-10 12:54 | XMS_ITS | Encounter Summary ---
Author Organization [employer] Address [address] [facility] 7t [place] [address] Care Team Providers Care Data Management Manager Name Role Phone Nadine Ham MD Primary Care Provide r Reason for Visit * Reason Comments Med Refill Encounter Details Date Type Department Care Team (Late st Contact Info) Description 10/15/2023 Refill [facility] MEDICINE 230 [place] [address] Emile Roldan MD [address] [place], [place] [phone] Type 2 diabetes mellitus without complication, unspecified whether intermission coordinator insulin use ([facility]) Social History Tobacco Use Types Packs/Day Years [...] Description 09/26/2025 3:30 PM EST Office Visit [facility] OPTOMETRY [address] [place] [address] Liliana Cuenca, OD 230 [place] [address] documented as of this encounter Visit Diagnoses Diagnosis Type 2 diabetes mellitus without complication, unspecified whether intermission coordinator insulin use documented in this encounter Additional Health Concerns Assessment Noted Time PHQ-9 Depression Total Score: 0 06/15/20 23 11:13 AM EDT documented as of this encounter Care Teams Data Management Manager Relationship Specialty Start Date End Date Nadine Ham MD [address] [place] [address] PCP - General Family Medicine 07/23/18 documented as of this encounter
--- OUTSIDE RECORDS SUMMARY | 2025-06-10 12:54 | XMS_ITS | Encounter Summary ---
Author Organization [employer] Address [address] [facility] 7t [place] [address] Care Team Providers Care Drop Hammer Setter Up Name Role Phone Nadine Ham MD Primary Care Provide r Reason for Visit * Reason Onset Date Comments letter 04/03/2025 Encounter Details Date Type Department Care Team ([facility] st Contact Info) Description 04/03/2025 Telephone [facility] MEDICINE 230 [place], [place] [phone] Nadine Ham MD 230 [place], [place] [phone] letter Social History Tobacco Use Types Packs/Day [...] 10:37 AM EDT TC placed to patient [phone] to inform PCP sent Trulicity 0.75mg to the pharmacy. Patient verbalized understanding. Patient to f/u PRN. Please review if Trulicity should be increased (patient was on 0.75mg before). Thank you * Telephone Encounter - Leilani Oakes RN - 04/03/2025 4:16 PM EDT TC placed to patient [phone] in regards to below message. Patient reports she received a letter in regards to her Trulicity. Patient is unsure what the letter is stating. RN called [facility] pharmacy who reports the patient obtained the [...] taking Trulicity. Any questions contact pt at [phone] documented in this encounter Plan of Treatment Upcoming Encounters Date Type Department Care Team (Late st Contact Info) Description 09/26/2025 3:30 PM EST Office Visit [facility] OPTOMETRY [address] [place] [address] Bang, Liliana, OD 230 [place] [address] documented as of this encounter Visit Diagnoses Not on filedocumented in this encounter Additional Health Concerns Assessment Noted Time PHQ-9 Depression Total Score: 0 06/15/20 23 11:13 AM EDT documented as of this encounter Care Teams Drop Hammer Setter Up Relationship Specialty Start Date End Date Nadine Ham MD [address] [place], [place] [phone] PCP - General Family Medicine 07/23/18 documented as of this encounter
--- OUTSIDE RECORDS SUMMARY | 2025-06-10 12:54 | XMS_ITS | Encounter Summary ---
Author Organization [employer] Address 75 [facility] 7t [place] [address] Care Team Providers Care Investigative Analyst Name Role Phone Nadine Ham MD Primary Care Provide r Encounter Details Date Type Department Care Team ([facility] st Contact Info) Description 04/04/2025 Orders Only [facility] MEDICINE [address] [place] [address] Nadine Ham MD [address] [place] [address] Social History Tobacco Use Types Packs/Day Years [...] Description 09/26/2025 3:30 PM EST Office Visit [facility] OPTOMETRY [address] [place], [place] [phone] Bang, Liliana, OD 230 [place] [address] documented as of this encounter Visit Diagnoses Not on filedocumented in this encounter Additional Health Concerns Assessment Noted Time PHQ-9 Depression Total Score: 0 06/15/20 23 11:13 AM EDT documented as of this encounter Care Teams Investigative Analyst Relationship Specialty Start Date End Date Nadine Ham MD [address] [place] [address] PCP - General Family Medicine 07/23/18 documented as of this encounter
--- OUTSIDE RECORDS SUMMARY | 2025-06-10 12:55 | XMS_ITS | Encounter Summary ---
Author Organization [employer] Address [address] [place] [address] 7 [place] [address] Care Team Providers Care Carpenter Inspector Name Role Phone Nadine Ham MD Primary Care Provide r Encounter Details Date Type Department Care Team (Late Contact Info) Description 03/24/2023 Orders Only [facility] MEDICINE 230 [place] [address] Jessica Groves LPN Social History Tobacco Use [...] Description 09/26/2025 3:30 PM EST Office Visit [facility] OPTOMETRY [address] [place] [address] Liliana Cuenca, OD 230 [place] [address] documented as of this encounter Visit Diagnoses Not on filedocumented in this encounter Care Teams Carpenter Inspector Relationship Specialty Start Date End Date Nadine Ham MD 230 [place] [address] PCP - General Family Medicine 07/23/18 documented as of this encounter
--- OUTSIDE RECORDS SUMMARY | 2025-06-10 12:55 | XMS_ITS | Encounter Summary ---
Author Organization [employer] Address [address] [place] [address] [address] [address] Care Team Providers Care Bogger Operator Name Role Phone Nadine Ham MD Primary Care Provide r Encounter Details Date Type Department Care Team (Late Contact Info) Description 01/18/2023 Abstract [facility] MEDICINE 230 [place] [address] Nadine Ham MD [address] [place] [address] Social History Tobacco Use Types Packs/Day Years [...] Description 09/26/2025 3:30 PM EST Office Visit [facility] OPTOMETRY [address] [place], [place] [phone] Liliana Cuenca, OD 230 [place] [address] documented as of this encounter Procedures Procedure Name Priority Date/Time Associated Diagnosis Comments COLPOSCOPY Routine 11/16/2021 12:00 AM EDT HM COLONOSCOPY Routine 10/07/2019 documented in this encounter Results * Colposcopy (11/16/2021 12:00 AM EDT) us Historical Provider IN CLINIC/BEDSIDE ORDERAB LES Final Result * Colonoscopy (10/07/2019) Colonoscopy Normal Normal 10/07/2019 Narrative Maricel Gaytan - 10/07/2019 11:48 AM EST Recommended 10 year follow up( [facility] ) us Historical Provider HEALTH MAINTENANCE Final Result documented in this encounter Visit Diagnoses Not on filedocumented in this encounter Care Teams Bogger Operator Relationship Specialty Start Date End Date Nadine Ham MD [address] [place] [address] PCP - General Family Medicine 07/23/18 documented as of this encounter
--- OUTSIDE RECORDS SUMMARY | 2025-06-10 12:55 | XMS_ITS | Encounter Summary ---
Author Organization [employer] Address [address] [facility] 7t [place] [address] Care Team Providers Care Streetcar Repairer Helper Name Role Phone Nadine Ham MD Primary Care Provide r Reason for Visit * Reason Comments Med Refill Encounter Details Date Type Department Care Team (Late st Contact Info) Description 10/15/2023 Refill [facility] MEDICINE 230 [place] [address] Doreen Marques MD 230 [place] [address] Essential hypertension Social History Tobacco Use Types [...] Description 09/26/2025 3:30 PM EST Office Visit [facility] OPTOMETRY [address] [place] [address] Liliana Cuenca, OD [address] [place] [address] documented as of this encounter Visit Diagnoses Diagnosis Essential hypertension Unspecified essential hypertension documented in this encounter Additional Health Concerns Assessment Noted Time PHQ-9 Depression Total Score: 0 06/15/20 23 11:13 AM EDT documented as of this encounter Care Teams Streetcar Repairer Helper Relationship Specialty Start Date End Date Nadine Ham MD 230 [place] [address] PCP - General Family Medicine 07/23/18 documented as of this encounter
--- OUTSIDE RECORDS SUMMARY | 2025-06-10 12:55 | XMS_ITS | Encounter Summary ---
Author Organization [email or web address] Address [address] [place] [address] 7 [place] [address] Care Team Providers Care Instructional Services Specialist Name Role Phone Nadine Ham MD Primary Care Provide r Encounter Details Date Type Department Care Team (Late Contact Info) Description 11/17/2022 Abstract [facility] MEDICINE [address] [place] [address] Nadine Ham MD [address] [place] [address] Social History Tobacco Use Types Packs/Day Years [...] 3:30 PM EST Office Visit [facility] OPTOMETRY [address] [place], [place] [phone] Liliana Cuenca OD 230 [place] [address] documented as of this encounter Visit Diagnoses Not on filedocumented in this encounter Care Teams Instructional Services Specialist Relationship Specialty Start Date End Date Nadine Ham MD [address] [place] [address] PCP - General Family Medicine 07/23/18 documented as of this encounter
--- OUTSIDE RECORDS SUMMARY | 2025-06-10 12:55 | XMS_ITS | Encounter Summary ---
Author Organization [employer] Address [address] [place] [address] 7t [place] [address] Care Team Providers Care Domestic Violence Advocate Name Role Phone Nadine Ham MD Primary Care Provide r Reason for Visit * Reason Onset Date Comments Appointment Request 11/27/2023 Encounter Details Date Type Department Care Team ([facility] st Contact Info) Description 11/27/2023 Telephone [facility] MEDICINE [address] [place] [address] Nadine Ham MD [address] [place], [place] [phone] Appointment Request Social History Tobacco Use Types [...] EST Office Visit [facility] OPTOMETRY [address] [place] [address] Liliana Cuenca, OD [address] [place] [address] documented as of this encounter Visit Diagnoses Not on filedocumented in this encounter Additional Health Concerns Assessment Noted Time PHQ-9 Depression Total Score: 0 06/15/20 23 11:13 AM EDT documented as of this encounter Care Teams Domestic Violence Advocate Relationship Specialty Start Date End Date Nadine Ham MD [address] [place] [address] PCP - General Family Medicine 07/23/18 documented as of this encounter
--- OUTSIDE RECORDS SUMMARY | 2025-06-10 12:55 | XMS_ITS | Encounter Summary ---
Author Organization [employer] Address [address] [place] [address] 7t [place] [address] Care Team Providers Care Dockworker Name Role Phone Nadine Ham MD Primary Care Provide r Encounter Details Date Type Department Care Team (Late st Contact Info) Description 01/18/2023 Orders Only [facility] MEDICINE [address] [place] [address] Valarie Dee RN 230 [place] [address] Social History Tobacco Use Types Packs/Day Years [...] 3:30 PM EST Office Visit [facility] OPTOMETRY [address] [place], [place] [phone] Liliana Cuenca OD 230 [place], [place] [phone] documented as of this encounter Procedures Procedure Name Priority Date/Time Associated Diagnosis Comments HM PAP/HPV Routine 08/03/2021 12:00 AM EST documented in this encounter Results * Hm Pap Smear (08/03/2021 12:00 AM EST) us Historical Provider HEALTH MAINTENANCE Final Result [facility] [address] [place] [address] [phone] documented in this encounter Visit Diagnoses Not on filedocumented in this encounter Care Teams Dockworker Relationship Specialty Start Date End Date Nadine Ham MD [address] [place] [address] PCP - General Family Medicine 07/23/18 documented as of this encounter
--- OUTSIDE RECORDS SUMMARY | 2025-06-10 12:55 | XMS_ITS | Encounter Summary ---
Author Organization [employer] Address [address] [place] [address] 7 [place] [address] Care Team Providers Care Swing Tender Name Role Phone Nadine Ham MD Primary Care Provide r Encounter Details Date Type Department Care Team (Late Contact Info) Description 10/03/2022 Orders Only [facility] MED & PEDS [address] [place] [address] Peace Murphy LPN Social History Tobacco Use [...] Description 09/26/2025 3:30 PM EST Office Visit [facility] OPTOMETRY [address] [place] [address] Liliana Cuenca, OD 230 [place] [address] documented as of this encounter Visit Diagnoses Not on filedocumented in this encounter Care Teams Swing Tender Relationship Specialty Start Date End Date Nadine Ham MD 230 [place], [place] [phone] PCP - General Family Medicine 07/23/18 documented as of this encounter
--- OUTSIDE RECORDS SUMMARY | 2025-06-10 12:55 | XMS_ITS | Encounter Summary ---
Author Organization [employer] Address [address] [place] [address] 7 [place] [address] Care Team Providers Care Physical Therapy Aides Teacher Name Role Phone Nadine Ham MD Primary Care Provide r Encounter Details Date Type Department Care Team (Late Contact Info) Description 04/14/2023 Orders Only [facility] MED & PEDS [address] [place] [address] Peace Murphy LPN Social History Tobacco Use [...] Description 09/26/2025 3:30 PM EST Office Visit [facility] OPTOMETRY [address] [place] [address] Liliana Cuenca, OD 230 [place] [address] documented as of this encounter Visit Diagnoses Not on filedocumented in this encounter Care Teams Physical Therapy Aides Teacher Relationship Specialty Start Date End Date Nadine Ham MD 230 [place], [place] [phone] PCP - General Family Medicine 07/23/18 documented as of this encounter
--- OUTSIDE RECORDS SUMMARY | 2025-06-10 12:55 | XMS_ITS | Clinical Summary ---
Author Organization [email or web address] Address [address] [facility] 7t [place] [address] Care Team Providers Care Clinical Phlebotomist Name Role Phone Nadine Ham MD Primary [...] hyperglycemia, without long-term current use of insulin ([facility]) Take 1 tablet (10 mg) by mouth [...] hyperglycemia, without long-term current use of insulin ([facility]) TAKE 1 TABLET BY MOUTH EVERY DAY [...] hyperglycemia, without long-term current use of insulin ([facility]) TAKE 1 TABLET BY MOUTH TWICE DAILY 180 tablet 1 03/03/20 25 Active Reguloid 28.3 % powderIndication s:Constipation, unspecified constipation type DISSOLVE 1 TABLESPOONFUL IN WATER AND DRINK BY MOUTH TWICE DAILY 369 g 3 03/27/20 25 Active Trulicity 0.75 MG/0.5ML solution auto-injectorInd ications:Type 2 diabetes mellitus with hyperglycemia, without long-term current use of insulin ([facility]) INJECT ONE PEN (=0.75MG) SUBCUTANEOUSLY ONCE A [...] 2 diabetes mellitus without complication, unspecified whether fpc insulin use TAKE 1 TABLET TWICE DAILY [...] Type Department Care Team Description 04/23/2025 Refill [facility] [address] [place] [address] Nadine Ham MD 04/13/2025 Refill [facility] [address] [place] [address] Nadine Ham MD Type 2 diabetes mellitus without complication, unspecified whether terminal block assembler insulin use ([facility]); Essential hypertension; Iron deficiency anemia, unspecified iron deficiency anemia type 04/04/2025 Orders Only [facility] [address] [place] [address] Nadine Ham MD 04/04/2025 Orders Only [facility] [address] [place] [address] Nadine Ham MD Type 2 diabetes mellitus with hyperglycemia, without long-term current use of insulin ([facility]) 04/03/2025 Telephone [facility] [address] [place], [place] [phone] Nadine Ham MD letter 04/01/2025 Refill [facility] [address] [place], [place] [phone] Doreen Marques MD Type 2 diabetes mellitus with hyperglycemia, without long-term current use of insulin ([facility]) 03/26/2025 Refill [facility] [address] [place] [address] Ralston, Bibiana, STAFFING ASSOCIATE Constipation, unspecified constipation type 03/12/2025 Orders Only [facility] External Provider, [facility] from Last 3 Months Immunizations Immunization Administration [...] Description 09/26/2025 3:30 PM EST Office Visit [facility] OPTOMETRY [address] [place], [place] [phone] Bang, Liliana, OD [address] [place], [place] [phone] Health Maintenance Due Date Last Done Comments [...] hyperglycemia, without long-term current use of insulin ([facility]) LIPID PANEL, STANDARD Routine 10/29/2024 1:15 PM EST Type 2 diabetes mellitus with hyperglycemia, without long-term current use of insulin ([facility]) POCT GLYCATED HEMOGLOBIN, TOTAL Routine 07/23/2024 3:29 PM EST Type 2 diabetes mellitus with hyperglycemia, without long-term current use of insulin ([facility]) INTRAORAL - COMPLETE SERIES OF RADIOGRAPHIC IMAGES [...] PM EDT Narrative 03/31/2025 4:35 PM EDT [facility] [address] [place] [address] Mammography Report Signed Patient: Adeola De La Fuente Shruthi R#: [id number] : 1970 Acct:[id number] Age/Sex: 54 / F ADM Date: 03/20/25 Loc: HO.MAMMO Attending Dr: Nadine Castellano MD Ordering Physician: Nadine Ham MD Results: 1Negative Date of Service: 03/20/25 Follow Up: 1 Year From Orig ina Mammogram Procedure(s): MM tomosynthesis screening BI Accession Number(s): [id number] cc: Nadine Ham MD EXAMINATION: MM SCREENING [...] 03/31/25 1631 DD/ 1436 TD/TT: 03/20/25 1457 Hand Box Folder: Procedure Note Donotuseinterpreter, Image - 03/31/2025 [facility] [address] [place] [address] Mammography Report Signed Patient: Gonzalo De La Fuente R#: [id number] : 1970Acct:[id number] Age/Sex: 54 / FADM Date: 03/20/25 Loc: HO.MAMMO Attending Dr: Nadine Castellano MD Ordering Physician: Nadine Ham MDResults: 1Negative Date of Service: 03/20/25Follow Up: 1 Year From Orig inal Mammogram Procedure(s): MM tomosynthesis screening BI Accession Number(s): [id number] cc: Nadine Ham MD EXAMINATION: MM SCREENING [...] 03/31/25 1631 DD/ 1436 TD/TT: 03/20/25 1457 Hand Box Folder: us Nadine Castellano MD IMG BI PROCEDURES Fin al Result * US Pelvis Transvaginal (03/12/2025 4:02 PM EDT) Anatomical Region Laterality Modality Pelvis Ultrasound 03/12/2025 4:02 PM EDT Narrative 03/13/2025 7:18 AM EDT [place] [address] Ultrasound Report Signed Patient: Adeola De La Fuente R#: [id number] : 1970 Acct:[id number] Age/Sex: 54 / F ADM Date: 03/12/25 Loc: .US Attending Dr: Murali Leon MD Ordering Physician: Murali Leon MD Date of Service: 03/12/25 Procedure(s): US pelvic and transvaginal Accession Number(s): [id number] cc: Nadine Ham MD; Murali Leon MD [...] Irvin Maher MD 03/13/2025 07:16 AM EDT Dictated By: Irvin Maher MD Signed By: <Electronically signed by Irvin Maher MD in OV> 03/13/25 0716 DD/ 1602 TD/TT: 03/12/25 1618 Hand Box Folder: Procedure Note Donotuseinterpreter, Image - 03/13/2025 [place] [address] Ultrasound Report Signed Patient: Gonzalo De La Fuente R#: [id number] : 1970Acct:[id number] Age/Sex: 54 / FADM Date: 03/12/25 Loc: HO.US Attending Dr: Murali Leon MD Ordering Physician: Murali Leon MD Date of Service: 03/12/25 Procedure(s): US pelvic and transvaginal Accession Number(s): [id number] cc: Nadine Ham MD; Murali Leon MD [...] 03/13/25 0716 DD/ 1602 TD/TT: 03/12/25 1618 Hand Box Folder: [facility] External Provider IMG US PROCEDURES Edited Result - Final * Albumin, Random Urine W/Creatinine (10/29/2024 1:15 PM EST) Creatinine, Urine 88.15 mg/dL [facility] Microalbumin Urine 5.0 mg/L [facility] Microalbum Creatinine Ratio Ur 5.6 <30 ug/mg cr [facility] Comment:Albumin/Creatinine R atio Reference Ranges: Normal: < 30 ug/mg creatinine Microalbuminuria: 30 - 300 ug/mg creatinineClinical Albuminuria: > 300 ug/mg creatinine Urine (Urine, Random) 10/29/2024 1:15 PM EST 10/29/2024 4:14 PM EST us Nadine Castellano MD LAB URINE ORDERABLES Final Result [facility] [address] [place] [phone] * (ABNORMAL) Lipid Panel, Standard (10/29/2024 1:15 PM EST) Triglycerides 181(H) <150 mg/dL [facility] Comment:Slight Lipemia.Betty able Triglyceride: less than 150 mg/dLBorderline High Triglyceride 150-199 mg/dLHigh Triglyceride: 200-499 mg/dLVery High Triglyceride: greater than or equal to 5OO mg/dL Cholesterol 172 <200 mg/dL [facility] Comment:Desirable Cholestero l: less than 200 mg/dLBorderline High Cholesterol: 200-239 mg/dLHigh Cholesterol: greater than 239 mg/dL LDL Cholesterol Calculated 80 <100 mg/dL [facility] Comment:Desirable LDL: less than 100 mg/dLNear Optimal/Above Optimal LDL: 110- 129 mg/dLBorderline High LDL: 130-159 mg/dLHigh LDL: 160-189 mg/dLVery High LDL: greater than or equal to 190 mg/dL HDL Cholesterol 56 >40 mg/dL [facility] Comment:Desirable HDL: great er than 40 mg/dL Note: This HDL assay may give artificially low results in patients with liver disease. Blood Venous blood specimen / Unknown 10/29/2024 1:15 PM EST 10/29/2024 4:08 PM EST us Nadine Castellano MD LAB BLOOD ORDERABLES Final Result [facility] [address] [place] [phone] * (ABNORMAL) POCT HGB A1C (07/23/2024 3:29 PM EST) Pathologist [facility] Hemoglobin A1C 8.1(A) 4.0 - 6.0 % QC Media Lot # [id number] Lot# Expiration Date [id number] Blood 07/23/2024 3:29 PM EST Nadine Castellano MD POINT OF CARE TEST EN TER/EDIT ORDERABLES Final Result * (ABNORMAL) HPV mRNA E6/E7 w/Reflex to HPV Genotypes 16, 18/45 (02/01/2023 3:18 PM EDT) Pathologist [facility] HPV nRNA E6/E7 Detected(A ) Not Detected [facility] Comment:Methodology: Transcr iption-Mediated AmplificationThis assay detects E6/E7 viral messenger RNA (mRNA) from 14high-risk HPV types (16,18,31,33,35,39,45,51,52,56,58,59,66,68).Cervical sources are required for HPV testing.If a vaginal source from a patient who has had atotal hysterectomy with removal of cervix wassubmitted, please contact the testing laboratoryfor alternative testing options.For additional information, please refer [email or web address]/KBM920b8(This link if provided for information/educational purposes only.)THIS TEST WAS PERFORMED AT:[facility] [place] [id number] STAUFFER MD HPV 16 RNA NOT DETECTED NOT DETECTED [facility] HPV 18/45 RNA NOT DETECTED NOT DETECTED [facility] Comment:Methodology: Transcr iption Mediated AmplificationCervical sources are required for HPV testing.If a vaginal source from a patient who has had atotal hysterectomy with removal of cervix wassubmitted, please contact the testing laboratoryfor alternative testing options.THIS TEST WAS PERFORMED AT:[facility] [place] [id number] STAUFFER MD 02/01/2023 3:18 PM EDT 02/02/2023 8:30 AM EDT [facility] External Provider LAB [facility] ORDERABLES Final Result [facility] [address] [place] [phone] * Pap Smear (02/01/2023 3:18 PM EDT) 02/01/2023 3:18 PM EDT 02/02/2023 8:30 AM EDT Narrative [facility] - 02/22/2023 6:19 PM EDT ----- ------- Name: Adeola De La Fuente Age/Sex: 52/F : 1970 Unit#: [id number] Attend Dr: Murali Leon MD Re02/01/23 Status: DEP REF Location: [facility] Disch: ----- ------- SPEC : [id number] RECD: 02/02/23 STATUS: [place] NUM: [id number] MIROSLAVA: 02/01/23-[address] [facility] [address]: Murali Leon MD ENTERED: 02/02/23 SP TYPE: Pap Smr OTHR DR: Nadine Ham MD ORDERED: Pap Smear [...] RNA: Not Detected HPV testing performed by [facility], [place], [place]. See reference laboratory portion of the EMR for entire report. Clinical Information LMP: Postmenopausal Previous PAP test: 2020, MANISHA I Material Received ThinPrep-Cervical Copies To: Nadine Ham MD [address] [place], [place] [phone] Murali Leon MD [address] [place] [address] [address] ----- ------- Signed (signature on file) Teresa Iban 02/22/23 1819 ----- ------- END OF REPORT [facility] External Provider LAB [facility] ORDERABLES Final Result [facility] [address] [place], [place] [phone] * Colonoscopy (10/07/2019) Colonoscopy Normal Normal 10/07/2019 Maricel Green - 10/07/2019 11:48 AM EST Recommended 10 year follow up( [facility] [place] Historical Provider HEALTH MAINTENANCE Final Result from Last 3 Months or Most Recently Relevant to Health Maintenance Insurance [employer] [facility] ST[facility] ADULT Care Teams Clinical Phlebotomist Relationship Specialty Start Date End Date Nadine Ham MD [address] [place] [address] PCP - General Family Medicine 07/23/18
--- OUTSIDE RECORDS SUMMARY | 2025-06-10 12:55 | XMS_ITS | Encounter Summary ---
Author Organization [employer] Address 75 [facility] 7t [place] [address] Care Team Providers Care Hospice Administrator Name Role Phone Nadine Ham MD Primary Care Provide r Encounter Details Date Type Department Care Team ([facility] st Contact Info) Description 07/25/2024 Orders Only [facility] MED[facility]INE [address] [place] [address] Nadine Ham MD [address] [place] [address] Social History Tobacco Use Types Packs/Day Years [...] Description 09/26/2025 3:30 PM EST Office Visit [facility] OPTOMETRY [address] [place], [place] [phone] Bang, Liliana, OD [address] [place] [address] documented as of this encounter Visit Diagnoses Not on filedocumented in this encounter Additional Health Concerns Assessment Noted Time PHQ-9 Depression Total Score: 0 06/15/20 23 11:13 AM EDT documented as of this encounter Care Teams Hospice Administrator Relationship Specialty Start Date End Date Nadine Ham MD [address] [place] [address] PCP - General Family Medicine 07/23/18 documented as of this encounter
--- OUTSIDE RECORDS SUMMARY | 2025-06-10 12:55 | XMS_ITS | Encounter Summary ---
Author Organization [employer] Address [address] [facility] 7t [place] [address] Care Team Providers Care Audiovisual Librarian Name Role Phone Nadine Ham MD Primary Care Provide r Encounter Details Date Type Department Care Team ([facility] st Contact Info) Description 07/13/2023 Orders Only [facility] MEDICINE [address] [place] [address] Nadine Ham MD [address] [place] [address] Social History Tobacco Use Types Packs/Day Years [...] Description 09/26/2025 3:30 PM EST Office Visit [facility] OPTOMETRY [address] [place], [place] [phone] Liliana Cuenca, OD [address] [place] [address] documented as of this encounter Visit Diagnoses Not on filedocumented in this encounter Additional Health Concerns Assessment Noted Time PHQ-9 Depression Total Score: 0 06/15/20 23 11:13 AM EDT documented as of this encounter Care Teams Audiovisual Librarian Relationship Specialty Start Date End Date Nadine Ham MD [address] [place] [address] PCP - General Family Medicine 07/23/18 documented as of this encounter
--- OUTSIDE RECORDS SUMMARY | 2025-06-10 12:55 | XMS_ITS | Encounter Summary ---
Author Organization [employer] Address [address] [place] [address] 7 [place] [address] Care Team Providers Care Team Foreman Name Role Phone Nadine Ham MD Primary Care Provide r Encounter Details Date Type Department Care Team (Late Contact Info) Description 02/02/2023 Orders Only [facility] MED & PEDS [address] [place] [address] Peace Murphy LPN Social History Tobacco Use [...] 3:30 PM EST Office Visit [facility] OPTOMETRY [address] [place] [address] Liliana Cuenca, OD [address] [place] [address] documented as of this encounter Visit Diagnoses Not on filedocumented in this encounter Care Teams Team Foreman Relationship Specialty Start Date End Date Nadine Ham MD [address] [place], [place] [phone] PCP - General Family Medicine 07/23/18 documented as of this encounter
--- OUTSIDE RECORDS SUMMARY | 2025-06-10 12:55 | XMS_ITS | Encounter Summary ---
Author Organization [email or web address] Address [address] [place] [address], [place] [address] Care Team Providers Care Radiation Oncology Nurse Name Role Phone Nadine Ham MD Primary Care Provide r Encounter Details Date Type Department Care Team (Late Contact Info) Description 10/19/[address] [facility] MEDICINE [address] [place] [address] Nadine Ham MD [address] [place] [address] Social History Tobacco Use Types Packs/Day Years [...] 09/26/2025 3:30 PM EST Office Visit [facility] OPTOMETRY [address] [place], [place] [phone] Liliana Cuenca, OD [address] [place] [address] Scheduled Orders Name Type Priority Associated Diagnoses Orde r Schedule OUTSIDE PROCEDURE SCAN Procedures Or dered: 10/19/2022 documented as of this encounter Visit Diagnoses Not on filedocumented in this encounter Care Teams Radiation Oncology Nurse Relationship Specialty Start Date End Date Nadine Ham MD [address] [place] [phone] PCP - General Family Medicine 07/23/18 documented as of this encounter
[2025-06-24 15:03] VITALS: BMI 36.4
[2025-06-24 15:15] VITALS: BMI 36.4
--- NOTE | 2025-06-25 09:04 | HO.ANESPROP2 ---
Documented by User: Almaz Young NP 06/25/25 09:05 HPI - Anesthesia Eval Consult details Narrative: 54yo F for D&C Hysteroscopy,possible myomectomy,possible polypectomy Anesthesia Pre-Procedure Meds Is the patient on any of the following meds?: GLP1/DPP4 PMFSH Active Problems Active Problems: All Active Problems Endometrial thickening on ultrasound (Acute) Vulvovaginitis (Acute) Pelvic pain (Acute) PVC (premature ventricular contraction) (Acute) Anemia (Acute) Heart palpitations (Acute) History of kidney stones (Acute) ASCUS with positive high risk HPV cervical (Acute) Right renal stone (Acute) Well woman exam (Acute) OAB (overactive bladder) (Acute) Kidney stone (Acute) LGSIL on Pap smear of cervix (Acute) Urinary incontinence (Acute) Encounter for annual routine gynecological examination (Acute) Hypothyroid (Acute) GERD (gastroesophageal reflux disease) (Acute) Urge incontinence (Acute) Past Medical History Medical History PVCs (premature ventricular contractions) Renal calculi Palpitations Dysplasia of cervix, low grade (MANISHA 1) Hypothyroid GERD (gastroesophageal reflux disease) Urge incontinence HTN (hypertension) Hemorrhoids Diabetes Family History Family History Family/Other Breast cancer Maternal Aunt Breast cancer Maternal Aunt Thyroid disease Father HTN (hypertension) Mother Hernia Age related osteoporosis Surgical History Surgical History Hx of colonoscopy History of Social History Social History Household Members Other:: daughter Housing: Apartment Are you a primary health care analyst to a significant other at home: No Do you presently have visiting nurse or other home services: No Alcohol intake: former Patient Tobacco Use Status: Former Tobacco user Tobacco use type: Cigarette Use of substances other than those prescribed or required for medical reasons: No Have you been hit, kicked, punched, or otherwise hurt by someone within the past year? If so, by whom?: No Spiritual Healthcare Practices: no [facility] Practices: no Cultural Healthcare Practices: no Are you DNR?: No Advance Directives: No (daughter is primary contact) Advance Directives on File: No FDLMP: n/a Poor oral hygiene: No service: No Current occupational status: employed Sexual orientation: Straight/Heterosexual Gender identity: Female Meds Allergies Allergy/AdvReac Type Severity Reaction Status Date / Time No Known Allergies (No Known Allergy Verified 06/27/25 06:08 Allergies*) Home Medications ?Medication ?Instructions ?Recorded ?Confirmed ?Last Taken ?Type blood sugar diagnostic #10 ea 07/29/20 06/24/25 Unknown History chlorthalidone 25 mg tablet 25 mg PO DAILY 07/29/20 06/24/25 Unknown History cholecalciferol (vitamin D3) 50 50 mcg PO DAILY 07/29/20 06/24/25 Unknown History mcg (2,000 unit) tablet glipizide 5 mg tablet, extended 5 mg PO DAILY 07/29/20 06/24/25 Unknown History release 24 hr metformin 1,000 mg tablet 1,000 mg PO BID 07/29/20 06/24/25 Unknown History lancets 33 gauge (TRUEplus Lancets) #100 ea 08/03/21 06/24/25 Unknown History lisinopril 40 mg tablet 40 mg PO DAILY 10/08/21 06/24/25 Unknown History omeprazole 20 mg capsule,delayed 20 mg PO DAILY 10/08/21 06/24/25 06/27/25 05:15 History release diclofenac sodium 1 % topical gel 2 g topical QID 01/07/22 06/24/25 Unknown History ferrous sulfate 325 mg (65 mg 325 mg PO Q OTHER DAY 01/23/24 06/24/25 Unknown History iron) tablet,delayed release docusate sodium 100 mg capsule 100 mg PO BID 06/04/25 06/24/25 Unknown History dulaglutide 0.75 mg/0.5 mL 0.75 mg subcut QWEEK 06/04/25 06/24/25 06/12/25 History subcutaneous pen injector (Trulicity) lidocaine 5 % topical patch 1 patch topical DAILY 06/04/25 06/24/25 Unknown History Exam Height,Weight and Vital Signs: Height 5 ft 4 in Weight 96.162 kg Assessment and Plan Assessment Anesthesia Assessment: Chart Reviewed Documented by User: Kenn Ash MD 06/27/25 07:27 [facility] Past Medical History Medical History PVCs (premature ventricular contractions) Renal calculi Palpitations Dysplasia of cervix, low grade (MANISHA 1) Hypothyroid GERD (gastroesophageal reflux disease) Urge incontinence HTN (hypertension) Hemorrhoids Diabetes Family History Family History Family/Other Breast cancer Maternal Aunt Breast cancer Maternal Aunt Thyroid disease Father HTN (hypertension) Mother Hernia Age related osteoporosis Family history of problems with anesthesia: No Surgical History Surgical History Hx of colonoscopy History of History of Problems with Anesthesia: No Social History Social History Household Members Other:: daughter Housing: Apartment Are you a primary health care analyst to a significant other at home: No Do you presently have visiting nurse or other home services: No Alcohol intake: former Patient Tobacco Use Status: Former Tobacco user Tobacco use type: Cigarette Use of substances other than those prescribed or required for medical reasons: No Have you been hit, kicked, punched, or otherwise hurt by someone within the past year? If so, by whom?: No Spiritual Healthcare Practices: no [facility] Practices: no Cultural Healthcare Practices: no Are you DNR?: No Advance Directives: No (daughter is primary contact) Advance Directives on File: No FDLMP: n/a Poor oral hygiene: No service: No Current occupational status: employed Sexual orientation: Straight/Heterosexual Gender identity: Female Meds Allergies Allergy/AdvReac Type Severity Reaction Status Date / Time No Known Allergies (No Known Allergy Verified 06/27/25 06:08 Allergies*) Home Medications ?Medication ?Instructions ?Recorded ?Confirmed ?Last Taken ?Type blood sugar diagnostic #10 ea 07/29/20 06/24/25 Unknown History chlorthalidone 25 mg tablet 25 mg PO DAILY 07/29/20 06/24/25 Unknown History cholecalciferol (vitamin D3) 50 50 mcg PO DAILY 07/29/20 06/24/25 Unknown History mcg (2,000 unit) tablet glipizide 5 mg tablet, extended 5 mg PO DAILY 07/29/20 06/24/25 Unknown History release 24 hr metformin 1,000 mg tablet 1,000 mg PO BID 07/29/20 06/24/25 Unknown History lancets 33 gauge (TRUEplus Lancets) #100 ea 08/03/21 06/24/25 Unknown History lisinopril 40 mg tablet 40 mg PO DAILY 10/08/21 06/24/25 Unknown History omeprazole 20 mg capsule,delayed 20 mg PO DAILY 10/08/21 06/24/25 06/27/25 05:15 History release diclofenac sodium 1 % topical gel 2 g topical QID 01/07/22 06/24/25 Unknown History ferrous sulfate 325 mg (65 mg 325 mg PO Q OTHER DAY 01/23/24 06/24/25 Unknown History iron) tablet,delayed release docusate sodium 100 mg capsule 100 mg PO BID 06/04/25 06/24/25 Unknown History dulaglutide 0.75 mg/0.5 mL 0.75 mg subcut QWEEK 06/04/25 06/24/25 06/12/25 History subcutaneous pen injector (Trulicity) lidocaine 5 % topical patch 1 patch topical DAILY 06/04/25 06/24/25 Unknown History Exam Exam Date and Time: 06/27/2025 Airway Mallampati Class: II TM Dist: >3cm Neck ROM: Full Denture: Upper Heart: rrr Lungs: ctab vesicular Assessment and Plan Assessment Anesthesia Assessment: Anesthesia Plan Discussed Final Anesthetic Review Family History of Problems with Anesthesia: No History of Problems with Anesthesia: No NPO: Yes ASA Class: II Final Preanesthetic Review: No Changes in Pt Med Stat, Meds/Allgs Chart Reviewed, Consent Obtained/Reviewed and Anes Risks/Benef Reviewed Patient Risk: Low Procedure Risk: Low Anesthetic Plan Anesthetic Plan: GA Disposition: Standard PACU
[2025-06-27 06:11] VITALS: BP 143/81; PULSE 72; RESP 15; TEMP 36.2; O2SAT 97; BMI 35.2
[2025-06-27 06:28] LABS: Glucose, Whole Blood 168 mg/dL (60-115)
[2025-06-27] MEDS: Lactated Ringers 1,000 ML 100 ML IVCONT (06:29)
--- NOTE | 2025-06-27 07:32 | MHC.SHP ---
Pre-Procedural Eval Section A - 24 Hr Update-Section A only Date of Service: 06/27/25 The patient is an INPATIENT: No Changes since office visit: No Cold of Flu in the past 2 weeks, No New Medical Problems, No Changes in Medication and No Patient answered all questions The patient has been examined within 24 hours of the surgical procedure. The History & Physical has been completed within 30 days and I have reviewed it.: Yes Section B - Complete if H&P > 30 days Chief Complaint: Abnormal findings on diagnostic imaging of other Allergies: Allergies Allergy/AdvReac Type Severity Reaction Status Date / Time No Known Allergies (No Known Allergy Verified 06/27/25 06:08 Allergies*) Plan Diagnosis/Plan: Unchanged I have reviewed the history and physical and performed a pertinent physical examination on my patient. No changes have occurred unless specified. Time Spent With Patient Time: Total time managing care of this patient today ____ minutes.
[2025-06-27 08:08] VITALS: BP 125/88; PULSE 70; RESP 12; TEMP 35.6; O2SAT 96
--- NOTE | 2025-06-27 08:08 | P.OP_ITS ---
Operative Note Operative Note Date of Service: 06/27/25 Narrative: Preop Diagnosis: Thickened endometrium by ultrasound Operation: Diagnostic Hysteroscopy, Dilataion & Curettage Post Op Diagnosis: Normal endometrial cavity QBL: Minimal Anesthesia: GLMA Surgeon: Murali Leon MD Currency Exchange Specialist: None Complication: None Pathology: Endometrial Scrapings Procedure: The patient was put in the dorsal lithotomy position, scrubbed, and draped in the usual manner. A sterile speculum was inserted in the patient's vagina. The anterior lip of the cervix was grasped with a single tooth tenaculum. The cervix was dilated up to 5 mm, then the scope was inserted in the patient's uterus. Inspection revealed Normal endometrial cavity. The Myosure Reach device was used; the scope was removed from the endometrial cavity , sharp curettings was carried on with minimal to moderate amount of tissues retrieved. At the end of the procedure, all instruments were taken out of the patient uterine and vaginal cavity. The single tooth tenaculum was removed and homeostasis was assured using pressure,. The patient tolerated the procedure well and was transferred to the PACU in a stable condition.
--- NOTE | 2025-06-27 08:08 | P.BOP_ITS ---
Brief Operative Note Date of Service: 06/27/25 Pre-op diagnosis: Thickened endometrium by ultrasound Post-op diagnosis: same (Normal endometrial cavity) Procedure: Hysteroscopy D&C Surgeon: Murali Leon MD Anesthesia: GLMA Was an Ict Support Engineer used for this Procedure?: No Estimated blood loss (mL): 0 Pathology: other (Endometrial Scrapping) Condition: stable Disposition: PACU
[2025-06-27 08:13] VITALS: BP 131/84; PULSE 74; RESP 16; O2SAT 97
[2025-06-27 08:18] VITALS: BP 135/87; PULSE 67; RESP 16; O2SAT 95
[2025-06-27 08:23] VITALS: BP 131/87; PULSE 66; RESP 16; O2SAT 98
[2025-06-27 08:38] VITALS: BP 142/57; PULSE 57; RESP 16; TEMP 36.1; O2SAT 98
== END 2025-06-27 09:11 | disposition home or self-care (01) ==
PROVIDERS: PCP Internal Medicine; Visit Provider Obstetrics & Gynecology
PROC: 0UDB8ZZ Extraction of Endometrium, Via Natural or Artificial Opening Endoscopic (ICD-10-PCS; CPT 58558; principal; 2025-06-27 07:30)
DX: R93.89 Abnormal findings on diagnostic imaging of other specified body structures (principal); N39.41 Urge incontinence; I10 Essential (primary) hypertension; E11.9 Type 2 diabetes mellitus without complications; E03.9 Hypothyroidism, unspecified; K21.9 Gastro-esophageal reflux disease without esophagitis; Z79.84 Long term (current) use of oral hypoglycemic drugs; Z79.899 Other long term (current) drug therapy; Z87.891 Personal history of nicotine dependence; Z79.85 Long-term (current) use of injectable non-insulin antidiabetic drugs
CPT/HCPCS: 58558; 82947; 88305; J1885; J3010

== ENCOUNTER → 2025-06-27 05:55 | Outpatient (BNV) | payer MEDICAID, SELFPAY | PROVIDERS: PCP Internal Medicine; Visit Provider Obstetrics & Gynecology | DX: N85.9 Noninflammatory disorder of uterus, unspecified (principal) | CPT/HCPCS: 58558 ==

== ENCOUNTER 2025-07-21 16:04 | Outpatient (AMB) | payer MEDICAID, SELFPAY ==
--- NOTE | 2025-07-21 16:20 | MHC.OFFVIS ---
Vital Signs 07/21/25 16:21 Height 5 ft 4 in Weight 212 lb BMI 36.4 Intake Visit Reasons: post op Mental Health Nurse Practitioner Required: Yes Mental Health Nurse Practitioner Language: Manager Cargo Services: Mental Health Nurse Practitioner Present (in person) Mental Health Nurse Practitioner Name: Meera AGUIRRE Information Interpreted: non-clinical & clinical Accompanied by: Self / Same As Patient Allergies No Known Allergies (No Known Allergies*) Allergy (Verified 07/21/25 16:22) HPI Comments Details: The patient is presenting post hysteroscopy D&C no complaints minimal vaginal bleeding no feverishness chills or abdominal pain. The pathology showed the following: Endometrium, curettage: Superficial strips of benign inactive endometrium, and benign endocervical glandular and squamous epithelium; no atypia or carcinoma. [facility] Medical History PVCs (premature ventricular contractions) Renal calculi Palpitations Dysplasia of cervix, low grade (MANISHA 1) Hypothyroid GERD (gastroesophageal reflux disease) Urge incontinence HTN (hypertension) Hemorrhoids Diabetes Surgical History Hx of colonoscopy History of Family History Family/Other Breast cancer Maternal Aunt Breast cancer Maternal Aunt Thyroid disease Father HTN (hypertension) Mother Hernia Age related osteoporosis Social History Household Members Other:: daughter Housing: Apartment Are you a primary child care supervisor to a significant other at home: No Do you presently have visiting nurse or other home services: No Alcohol intake: former Patient Tobacco Use Status: Former Tobacco user Tobacco use type: Cigarette service: No Current occupational status: employed Sexual orientation: Straight/Heterosexual Gender identity: Female Review of Systems Const All systems reviewed & are unremarkable except as noted in HPI and below Reports as per HPI and Reports no additional complaints GI Reports no additional complaints Reports no additional complaints Physical Exam Vital Signs: BMI result Body Mass Index 36.4 Assessment & Plan Assessment & Plan (1) Endometrial thickening on ultrasound: Code(s): R93.89 - Abnormal findings on diagnostic imaging of other specified body structures Category: Medical Plan: Discussed with the patient the results of the D and C pathology. Discussed with the patient the sensitivity, specificity, positive and negative predictive value, of endometrial biopsy in detecting endometrial pathology including but not limited to endometrial hyperplasia, cancer and other pathology; instructed the patient to call in case vaginal bleeding recurs, the next step will be to proceed with further endometrial sampling evaluation to rule out endometrial pathology. All questions answered and the patient verbalized understanding and agreed with the plan. Coding Level of Care Code Est Pt Level 3 (38238) Diagnoses Endometrial thickening on ultrasound R93.89
[2025-07-21 16:21] VITALS: BMI 36.4
== END 2025-07-22 11:48 | disposition home or self-care (01) ==
LOC: HO.HWS 16:04
PROVIDERS: PCP Internal Medicine; Visit Provider Obstetrics & Gynecology
DX: R93.89 Abnormal findings on diagnostic imaging of other specified body structures (principal)
CPT/HCPCS: 99213

== ENCOUNTER → 2025-07-21 16:04 | Outpatient (BNVA) | payer MEDICAID, SELFPAY | PROVIDERS: PCP Internal Medicine; Visit Provider Obstetrics & Gynecology | DX: Z71.2 Person consulting for explanation of examination or test findings (principal); R93.89 Abnormal findings on diagnostic imaging of other specified body structures; Z98.890 Other specified postprocedural states | CPT/HCPCS: 99212 ==